=== PATIENT | male | born 1955 | race Caucasian/White ===

== ENCOUNTER → 2017-06-19 09:53 | Outpatient (CLI) | payer BC, SELFPAY ==
[2017-06-19 10:20] LABS: Alanine Aminotransferase 56 U/L (12-78); Albumin Level 3.6 gm/dL (3.4-5.0); Alkaline Phosphatase 86 U/L (46-116); Aspartate Amino Transferase 25 U/L (15-37); Bilirubin,Direct 0.1 mg/dL (0.0-0.2); Bilirubin,Total 0.4 mg/dL (0.2-1.0); Chol/HDL Ratio 2.7 (1-3.5); Cholesterol 117 mg/dL (140-200); HDL Cholesterol 43 mg/dL (27-67); LDL Cholesterol 61 mg/dL (0-130); Total Protein,Serum 7.5 gm/dL (6.4-8.2); Triglycerides 66 mg/dL (30-200); VLDL Cholesterol 13 mg/dL (0-40)
== END ==
PROVIDERS: PCP Family Medicine; Visit Provider Internal Medicine
DX: E78.5 Hyperlipidemia, unspecified (principal)
CPT/HCPCS: 36415; 80061; 80076

== ENCOUNTER → 2018-01-04 13:13 | Outpatient (CLI) | payer BC, SELFPAY ==
[2018-01-04 13:34] LABS: Blood Urea Nitrogen 15 mg/dL (7-18); Creatinine,Serum 1.07 mg/dL (0.70-1.30); Estimated Glomerular Filt Rate 70 ml/min (>60); GFR (African American) 85 ML/MIN (>60)
--- NOTE | 2018-01-04 13:44 | CT_ITS ---
CT chest w con HISTORY: ITS.REASON: LUNG CA ORDERING PHYSICIAN: Troy Valencia MD PATIENT AGE: 62 years COMPARISON: CTA chest March 2017 Technique: IV contrast: 75 cc [id number] utilized IV helical Axial images obtained. Sagittal and coronal reformatted images are also generated and reviewed. All CT scans at the facility use one or more dose reduction, viz: automated exposure control, ma/kV adjustment per patient size (including targeted exams where dose is matched to indication, i.e. head), or iterative reconstruction technique. FINDINGS : There are bilateral large rounded pulmonary masses containing heterogeneous calcification, seen towards the suprahilar region extending towards upper lung wood bilaterally. Left chest.: Left lung mass appears stable vs the Mar 2017 study here at left chest. This large mass measures 6.8 cm height and transverse, unchanged since prior study.. It abuts the posterior pleura in this region but with no rib or chest wall involvement evident. This mass mainly suprahilar but extends into the left sharona with with abnormal soft tissue density throughout the mid & superior portion left sharona. Also note this Mass involves en cases and narrows the pulmonary artery leading into it, axial image 39. The reticular nodular infiltrate surrounding this mass is again noted. Some additional stranding and scarring bleeding into the left upper lobe which appears similar as well. Right chest large mass of the right chest appears similar in size as well. It measures over 7.5 cm height and nearly 8 cm wide. Again with heterogeneous calcifications throughout. Extensive posteriorly towards the posterior pleura RUL. However there are additional reticular nodular infiltrate type pattern surrounding this area with additional volume loss at the right upper lobe with elevation right hemidiaphragm. There appears to be bronchial obstruction RUL bronchus on coronal image 45/axial image 35, ,36 due to this large mass. The mass also encases the upper lobe pulmonary artery and extends down to the right sharona enlarging the right sharona, encasing the only artery at this level.... & No mass narrowing other the airways leading towards the right upper lobe at at the right hilum. The a few scattered peripheral densities are again noted Hyperexpansion towards the lower lobes is again seen bilaterally No pleural effusions. No bony abnormalities. Mediastinum appears unchanged. Generous conglomeration nodes subcarinal region measuring up to 3.5 cm. Appears stable . There is also generous 15 mm x 10 mm node anterior to the left bronchus which appears similar, stable. The heart is normal size no pericardial effusion. Uppermost abdomen no adrenals unremarkable. There is a 5 mm calculus at lower pole right kidney. Nonobstructive noted. Osseous no lesions. T-spine intact-stable,. Ribs intac. No erosive changes. . Aorta appears satisfactory. IMPRESSION: Appearance likely reflects progressive massive fibrosis with large conglomerations.., With progressive volume loss RUL since last year Again see large bilateral upper lobe, perihilar masses bilaterally with heterogeneous calcification.. These prominent large masses appears overall fairly stablesince March 2017; CT chest..... Associated scattered nodules at lungs bilateral appear appears fairly stable as well However, on the right there pronounced interval progressive volume loss atelectasis at RUL. Also progressive reticular interstitial infiltrate surrounding the mass-most evident throughout decreased volume RUL, more so RLL. These large central masses significantly narrow and/or occlude airways to the upper lobes bilaterally. Speculate that this likely contributes to the this significant progressive volume loss at
--- NOTE | 2018-01-04 14:07 | HMH.ITSHM ---
ASPIRINM,VONETOILIN BRILINTA,AMLODIPINE,ATORCASTATIN METOPROLOL
== END ==
PROVIDERS: PCP Family Medicine; Visit Provider Family Medicine
DX: R91.8 Other nonspecific abnormal finding of lung field (principal)
CPT/HCPCS: 36415; 71260; 82565; 84520; Q9967

== ENCOUNTER 2018-05-27 13:59 | Outpatient (RCR) | payer BC, SELFPAY | END 2018-07-31 08:37 | disposition home or self-care (01) | LOC: PT 13:59 | DX: J62.8 Pneumoconiosis due to other dust containing silica (principal) | CPT/HCPCS: G0424 ==

== ENCOUNTER 2018-08-14 12:08 | Inpatient (IN) ==
[2018-08-14 12:28] LABS: Basophils % 0.4 % (0.1-2.0); Eosinophils # 0.2 K/mm3 (0.0-0.4); Eosinophils % 2.3 % (0.1-12.0); Hematocrit 35.5 % (42.0-52.0); Hemoglobin 10.9 g/dL (14.1-18.0); Lymphocytes # 0.7 K/mm3 (0.7-4.5); Lymphocytes % 8.1 % (10-50); Mean Corpuscular HGB Conc 30.6 g/dL (31.8-35.4); Mean Corpuscular Hemoglobin 25.5 pg (27.0-31.2); Mean Corpuscular Volume 83.1 fl (80-94); Mean Platelet Volume 6.7 fl (7.4-10.4); Monocytes # 0.3 K/mm3 (0.1-1.0); Monocytes % 3.7 % (1.7-9.3); Neutrophils # 7.8 K/mm3 (1.8-7.8); Neutrophils % 85.5 % (37.0-80.0); Platelet Count 704 K/mm3 (142-424); Red Blood Count 4.27 M/mm3 (4.60-6.20); Red Cell Distribution Width 14.1 % (11.5-17.5); White Blood Count 9.1 K/mm3 (4.8-10.8)
--- NOTE | 2018-08-14 12:29 | Emergency Department Note ---
ED Disposition Clinical Impression: Pulmonary fibrosis Community acquired pneumonia Qualifiers: Laterality: left Lung location: upper lobe of lung Qualified Code(s): J18.1 - Lobar pneumonia, unspecified organism Disposition: Admitted as Observation Condition on Discharge: Fair Referrals: Provider,Referral, [Referring] - - Critical Care Critical Care Time: No Attestation: On 08/14/18, the high probability of a clinically significant, sudden or life threatening deterioration of the following system(s) required my full and direct attention, intervention and personal management. The time I documented below is in addition to time spent performing reported procedures but includes the following listed in this critical care notation. Medical Decision Making - Zia Inquiry Pt receiving controlled substance: Yes Zia was queried for this patient: No Reason not queried -: Emergent pt cond-no time Risks and benefits of using a controlled substance: were not discussed with pt by me Vital Signs: 08/14/18 12:10 08/14/18 12:20 08/14/18 12:40 Temperature 97.7 F Temperature Source Tympanic Pulse Rate 100 H Pulse Rate [Right Radial] 101 H 100 H Respiratory Rate 26 H 26 H Blood Pressure [Right Arm] 119/79 101/74 L Blood Pressure Mean [Right Arm] 92 83 Blood Pressure Source [Right Arm] Automatic Cuff Automatic Cuff Blood Pressure Position [Right Arm] Sitting Sitting 02 Sat by Pulse Oximetry 100 93 L Oxygen Delivery Method Non-Rebreather Nasal Cannula Oxygen Flow Rate (LPM) 15 2.5 08/14/18 14:10 08/14/18 14:38 Temperature Temperature Source Pulse Rate Pulse Rate [Right Radial] 92 H 91 H Respiratory Rate 20 Blood Pressure [Right Arm] 108/64 L 96/57 L Blood Pressure Mean [Right Arm] 78 70 Blood Pressure Source [Right Arm] Automatic Cuff Automatic Cuff Blood Pressure Position [Right Arm] Supine Sitting 02 Sat by Pulse Oximetry 96 97 Oxygen Delivery Method Nasal Cannula Oxygen Flow Rate (LPM) 2 - Lab Data Lab Results 08/14/18 12:15: WBC 9.1, RBC 4.27 L, Hgb 10.9 L, Hct 35.5 L, MCV 83.1, MCH 25.5 L, MCHC 30.6 L, RDW 14.1, Plt Count 704 H, MPV 6.7 L, Neut % (Auto) 85.5 H, Ly mph % (Auto) 8.1 L, Wise % (Auto) 3.7, Eos % (Auto) 2.3, Baso % (Auto) 0.4, Neut # (Auto) 7.8, Lymph # (Auto) 0.7, Wise # (Auto) 0.3, Eos # (Auto) 0.2, Baso # (Auto) 0.0, Total Counted 100, Neutrophils % (Manual) 92 H, Band Neutrophils % 1.0, Lymphocytes % (Manual) 5 L, Monocytes % (Manual) 2, Platelet Estimate Moderate increase, Hypochromasia 1+ 08/14/18 12:15: Sodium 139, Potassium 4.1, Chloride 101, Carbon Dioxide 25, Anion Gap 17.1 H, BUN 11, Creatinine 0.98, Estimated Creat Clear 58, Estimated GFR 78, Est GFR ( Amer) 94, Glucose 128 H, Calcium 9.7, Troponin I < 0.02 08/14/18 12:15: D-Dimer 765 H* 08/14/18 12:30: Lactate 1.5 Result diagrams: 08/14/18 12:15 08/14/18 12:15 Orders (Tests/Meds): ED MEDICATIONS Generic Name Dose Route Start Last Admin Trade Name Freq PRN Reason Stop Dose Admin Azithromycin 500 mg/ Sodium 250 mls @ 250 mls/hr 08/14/18 12:45 08/14/18 13:30 Chloride IV 08/28/18 12:44 250 mls/hr Q24H MAGDY Administration Protocol Ceftriaxone Sodium 1 gm/ 50 mls @ 100 mls/hr 08/14/18 12:45 08/14/18 12:51 Sodium Chloride IV 08/28/18 12:44 100 mls/hr Q24H MAGDY Administration Protocol Sodium Chloride 10 ml 08/14/18 12:16 Saline Flush 10ml Syringe IV 09/13/18 12:15 NEEDED PRN Maintain IV Site Discontinued Medications Generic Name Dose Route Start Last Admin Trade Name Freq PRN Reason Stop Dose Admin Albuterol/Ipratropium 3 ml 08/14/18 12:16 08/14/18 12:20 Duoneb 3ml Neb IH 08/14/18 12:17 3 ml ONCE ONE Administration Ioversol 70 ml 08/14/18 14:01 08/14/18 14:02 Rad-Optiray 350 100ml Vial IV 08/14/18 14:02 70 ml ONCE ONE Administration Protocol Methylprednisolone Sodium Succinate 125 mg 08/14/18 12:16 08/14/18 12:20 Solu-Medrol 125mg/2ml Vial IV 08/14/18 12:17 125 mg ONCE ONE Administration Morphine Sulfate 4 mg 08/14/18 12:41 08/14/18 12:42 Morphine 4mg/Ml Syringe IV 08/14/18 12:42 4 mg ONCE ONE Administration Ondansetron HCl 4 mg 08/14/18 12:16 08/14/18 12:20 Zofran 4mg/2ml Vial IV 08/14/18 12:17 4 mg ONCE ONE Administration Sodium Chloride 10 ml 08/14/18 14:01 08/14/18 14:02 Rad-Saline Flush 10ml Syringe IV 08/14/18 14:02 10 ml ONCE ONE Administration Sodium Chloride 50 ml 08/14/18 14:01 08/14/18 14:02 Rad-Ns 50ml Vial IV 08/14/18 14:02 50 ml ONCE ONE Administration ORDERS Category Date Time Status Blood Culture Stat Micro 08/14/18 12:30 Received - Radiology Data #1 Image(s): Chest Image Reviewed: Yes I reviewed the patient's radiology image, Yes I have reviewed radiologist's interpretation IMPRESSION: 1. Persistent bilateral upper lobe consolidation consistent with progressive massive fibrosis. 2. Slight increased density in the left upper lobe laterally which could be due to an area of superimposed pneumonia. Dictated By: Carson Olivas MD Signed By: <Electronically signed by Carson Olivas MD in [place]> 08/14/18 1226 - CT Data CT Scan: Chest (CTA) Time Received: 14:[address] Reviewed: Yes: I have viewed the radiologist's interpretation Findings Narrative: IMPRESSION: 1. No evidence of pulmonary embolus. 2. Bilateral upper lobe consolidation as previously described which is worse in the right upper lobe laterally which could be due to superimposed volume loss or progression of progressive massive fibrosis. Cavitation is noted in the right upper lobe unchanged. Severe panlobular emphysematous changes. Scattered nodular densities are noted in both lungs unchanged. Bilateral segmental upper lobe bronchi obstruction noted. 3. Patchy infiltrate in the left upper lobe consistent with pneumonia. 4. There is irregularity/pruning of the segmental pulmonary arteries but no obvious embolus. This did have a similar appearance on previous exam Recommend pulmonary consult if not already in place Dictated By: Carson Olivas MD Signed By: <Electronically signed by Carson Olivas MD in [place]> 08/14/18 8564 - ECG Data Tracing #1 EKG interpreted by Danial Martins MD: Rhythm: sinus tachycardia Rate: 103 [place]: normal Ectopy: none Conduction: normal ST Segment Changes: none T Wave Changes: none Q Waves: none Poor R wave progression no evidence of acute ischemia or injury - Physician Consults Physician Consulted: Annie Time: 15:08 Reason -: Admission Comment/Response: Agrees to admit the patient to the hospital. We discussed the patient's clinical information, including history, exam, laboratory and radiology results and ED course. Per hospital procedure, I will write temporary bridge inpatient orders on the patient. Specific orders requested by the admitting physician: Continue antibiotics, nebulizer treatments, steroids, oxygen Medical Decision Narrative: Prior chest CT: IMPRESSION: Appearance likely reflects progressive massive fibrosis with large conglomerations.., With progressive volume loss RUL since last year Again see large bilateral upper lobe, perihilar masses bilaterally with heterogeneous calcification.. These prominent large masses appears overall fairly stablesince March 2017; CT chest..... Associated scattered nodules at lungs bilateral appear appears fairly stable as well However, on the right there pronounced interval progressive volume loss atelectasis at RUL. Also progressive reticular interstitial infiltrate surrounding the mass-most evident throughout decreased volume RUL, more so RLL. These large central masses significantly narrow and/or occlude airways to the upper lobes bilaterally. Speculate that this likely contributes to the this significant progressive volume loss at RUL in the interval. This this mass encases the vascular structures with significant narrowing many of pulmonary arteries to the upper lobes. Underlying COPD/emphysematous changes as well. Ongoing pulmonary follow-up will be important Dictated By: Vamsi Vasquez Signed By: <Electronically signed by Vamsi Vasquez in [place]> 01/07/18 2759 Prior [facility]: IMPRESSION: 1. Severe disease in the mid LAD which corresponded to the abnormal Myoview 2. Persistent moderate to severe stenosis and a large first obtuse marginal artery 3. Persistent moderate to severe stenosis in the moderate sized posterior ascending artery 4. Preserved ejection fraction 55% 5. Mildly elevated LVEDP 6. Successful stenting of the mid LAD, severe disease reduced to 0% with 1 drug-eluting stent PLAN: 1. Brilinta and aspirin 2. Lipitor in order to achieve an LDL less than 55 3. Risk factor modification 4. Maximize antianginal medications 5. I would like to treat the first obtuse marginal artery medically at this time. It is a large vessel and certainly amenable to stenting however given the Myoview demonstrated anterior ischemia I am confident the mid LAD lesion was the culprit. Should patient continue to have angina pectoris I would recommend free him back and stenting the obtuse marginal artery 6. The diagonal artery should be managed medically as should the PDA at this time <Electronically signed by Baljinder Paez MD in [place]> 03/12/17 1009 [facility]IMIRO / LELAND AT 0916 AT 0958 General Adult HPI - General Chief complaint: Shortness of Breath/Dyspnea Stated complaint: SOA, chest pain Time Seen by Provider: 08/14/18 12:25 Mode of Arrival: EMS Limitations: No Limitations Description of Symptoms (Recalled from ER Triage Doc. by RN): Pt reports a sudden onset of SOA upon waking up this morning. Pt reports hx of COPD and black lung disease. Pt reports "my RIGHT lung is just about completely closed off". Pt reports he sees a operating engineer at [facility] (Dr. Troy Arias), states he saw his last week. Pt c/o pain in chest on inspiration. Pt reports non-productive cough - History of Present Illness HPI narrative: Brought in by ambulance for chest pain and difficulty breathing. States that this morning he developed a pain in his left upper anterior chest below his clavicle which then moved over to the right side and now is in the sternal area and increases with breathing. He thought it might be a heart problem so he took a nitroglycerin, but vomited when he did so. Complains of increased shortness of breath today. Has a history of silicosis. Former smoker. He is not on oxygen at home. He does use a nebulizer at home. He had one nebulizer treatment at home, one during transport, and when here which is only slightly helped. Denies fever. Has a chronic cough which is unchanged. Denies sputum production or hemoptysis. No leg pain or swelling. No fever. Has a prior history of a cardiac stent inserted here. - Related Data Home Medications Medication Instructions Recorded Confirmed albuterol sulfate HFA 90 2 puff INHALATION Q4-6H PRN 06/18/17 08/14/18 mcg/actuation aerosol inhaler amlodipine 5 mg tablet 5 mg PO ONCE 06/18/17 08/14/18 aspirin 81 mg tablet,delayed 81 mg PO ONCE tab 06/18/17 08/14/18 release atorvastatin 40 mg tablet 40 mg PO ONCE 06/18/17 08/14/18 metoprolol succinate ER 25 mg 25 mg PO ONCE tab 06/18/17 08/14/18 tablet,extended release 24 hr nitroglycerin 0.4 mg sublingual 0.4 mg SUBLINGUAL Q5M PRN 06/18/17 08/14/18 tablet ticagrelor 90 mg tablet 90 mg PO BID 06/18/17 08/14/18 Allergies Allergy/AdvReac Type Severity Reaction Status Date / Time No Known Allergies Allergy Verified 03/15/18 17:41 [facility] History - Hepatitis A Screen Drug use history?: No High risk sexual behaviors?: No History of sexually transmitted infection?: No Currently employed?: No Childcare worker?: No Do you have indoor plumbing?: Yes Do you have electricity?: Yes Attestation statement:: This patient has been screened for Hepatitis A risk factors. I have reviewed the patient's past medical history: Yes Medical History: Reports:: Chronic Obstructive Pulmonary Disease (COPD), Coronary Artery Disease, Hyperlipidemia, Hypertension, Kidney Stones, Palp itations Denies:: Diabetes Mellitus Type 1, Diabetes Mellitus Type 2 Other Medical History: Reports: Arthritis Other Surgeries: Yes: Coronary Stent, Other - Social History Smoking Status: Former smoker Alcohol Intake: never Alcohol Intake Frequency:: other Occupational Status: employed Housing: house Household Members: family - Psychiatric History Expresses thoughts of harming self/others: None Suicide Plan Description: No Plan Family Hx:: Coronary Artery Disease ROS Obtained: Yes All systems reviewed & no additional complaints - Constitutional Constitutional: Denies fever(s) - Cardiovascular Cardiovascular: Reports chest pain, Denies diaphoresis - Respiratory Respiratory: Yes cough (Chronic), Yes non-productive cough, Yes dyspnea, No coughing up blood, Yes pain on inspiration - Gastrointestinal Gastrointestingal: Reports: vomiting. Denies: abdominal pain Physical Exam - General General appearance: alert, in distress - Head Head exam: atraumatic, normocephalic - Eye Eye exam: Present: normal appearance, PERRL, EOMI - ENT ENT exam: Present: mucous membranes moist - Neck Neck exam: Present: normal inspection, trachea midline - Chest Chest inspection: Present: normal inspection, symmetric chest wall rise - Respiratory Respiratory exam: Present: normal lung sounds bilaterally, respiratory distress - Cardiovascular Cardiovascular exam: Present: normal rhythm, tachycardia, normal heart sounds - Abdominal Exam Abdominal exam: Present: soft. Absent: distention, tenderness - Extremities Exam Extremities exam: Present: normal inspection, full ROM, other (Normal radial and pedal pulses). Absent: tenderness, pedal edema, calf tenderness - Neurological Exam Neurological exam: Present: alert, oriented X3 - Psychiatric Psychiatric exam: Present: anxious
[2018-08-14 12:44] LABS: Anion Gap 17.1 mEq/L (5-15); Blood Urea Nitrogen 11 mg/dL (7-18); Calcium 9.7 mg/dL (8.5-10.1); Carbon Dioxide 25 mmol/L (21.0-32.0); Chloride 101 mmol/L (98-107); Glucose 128 mg/dL (74-106); Potassium 4.1 mmoL/L (3.5-5.1); Sodium 139 mmol/L (136-145)
[2018-08-14 13:06] LABS: Lymphocytes % 5 % (10-50); Monocytes % 2 % (2-9); Neutrophils % 92 % (42-76); Total Cells Counted 100
[2018-08-14 13:07] LABS: Hypochromasia 1+
--- NOTE | 2018-08-14 15:59 | History & Physical Report ---
*Admission Date: 08/14/18 <Charo Marino 08/14/18 16:07> *Chief complaint: SOA, wheezing, CP <Charo Marino 08/14/18 16:07> *History of present illness: Mr. 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 He states at approximately 6am he began having pain in the left side of his chest that radiated to his shoulder. The pain then moved across his entire chest and settled in the center. He began having shortness of breath as well and took a breathing treatment. He said this slightly helped his shortness of breath but not his chest pain. He then took a nitroglycerin and this made him vomit and caused him to become diaphoretic. It was at this time he called 911 and was transported to the emergency room. He was given another breathing treatment in route to the ER. Upon evaluation in the emergency room his d-dimer was found to be elevated, therefore a CTA was done to rule out a PE. CTA showed no PE but did reveal bilateral upper lobe pneumonia. The patient was admitted for further evaluation and treatment. <Charo Marino 08/14/18 16:07> [facility] History I have reviewed the patient's past medical history: Yes <Charo Marino 08/14/18 16:07> Medical History: Reports:: Chronic Obstructive Pulmonary Disease (COPD), Coronary Artery Disease, Hyperlipidemia, Hypertension, Kidney Stones, Palpitations Denies:: Diabetes Mellitus Type 1, Diabetes Mellitus Type 2 <Charo Marino 08/14/18 16:07> *Have you ever received a pneumonia vaccine?: No <Charo Marino 08/14/18 17:08> *Have you received a flu vaccine this season?: No <Charo Marino 08/14/18 17:08> Other Medical History: Reports: Arthritis, Other (Pulmonary fibrosis, Nodular Silicosis) <Charo Marino 08/14/18 16:07> Other Surgeries: Yes: Coronary Stent, Other (Bronchoscopy) <Charo Marino 08/14/18 16:07> - *Social History Smoking Status: Former smoker <Charo Marino 08/14/18 16:07> Alcohol Intake: never <MagedkathieCharo 08/14/18 16:07> Alcohol Intake Frequency:: other <NedCharo - 08/14/18 16:07> *Occupational Status:: employed <Charo Marino 08/14/18 16:07> Housing: house <MagedkathieCharo 08/14/18 16:07> Household Members: family <NedCharo 08/14/18 16:07> *Travel in the last 8 weeks: None <NedCharo 08/14/18 16:07> - Psychiatric History Expresses thoughts of harming self/others: None <Charo Marino 08/14/18 16:07> Suicide Plan Description: No Plan <NedCharo 08/14/18 16:07> Family Hx:: Coronary Artery Disease, Diabetes, Heart Attack, Hyperlipidemia <NedCharo 08/14/18 16:07> Review of Systems - Constitutional Reports fatigue, Reports weakness <Toby Marinoa 08/14/18 16:07> - Eyes Denies blurry vision, Denies double vision <NedCharo 08/14/18 16:07> - ENT Reports nasal congestion, [facility] sore throat [facility]> - *Cardiovascular Reports chest pain, Reports shortness of breath [facility]:07> - *Respiratory Reports cough, Reports shortness of breath <NedCharo 08/14/18 16:07> - *Gastrointestinal Reports nausea, Reports vomiting, Denies abdominal pain, Denies loose stools <[facility] 08/14/18 16:07> - *Genitourinary Reports blood in urine, Denies difficulty urinating <[facility] 08/14/18 16:07> - *Musculoskeletal Denies joint pain, Denies body aches [facility]/14[facility]18 16:07> - *Neurologic Reports dizziness, Reports weakness, Denies headache(s) <Toby Marinoa 08/14/18 16:07> Meds Home Medications Medication Instructions Recorded Confirmed Type albuterol sulfate HFA 90 2 puff INHALATION Q4-6H PRN 06/18/17 08/14/18 History mcg/actuation aerosol inhaler amlodipine 5 mg tablet 5 mg PO DAILY 06/18/17 08/14/18 History aspirin 81 mg tablet,delayed 81 mg PO DAILY tab 06/18/17 08/14/18 History release atorvastatin 40 mg tablet 40 mg PO HS 06/18/17 08/14/18 History metoprolol succinate ER 25 mg 25 mg PO DAILY tab 06/18/17 08/14/18 History tablet,extended release 24 hr nitroglycerin 0.4 mg sublingual 0.4 mg SUBLINGUAL Q5M PRN 06/18/17 08/14/18 History tablet ticagrelor 90 mg tablet 90 mg PO BID 06/18/17 08/14/18 History <Charo Marino - 08/14/18 16:07> Allergies Allergy/AdvReac Type Severity Reaction Status Date / Time No Known Allergies Allergy Verified 03/15/18 17:41 <Charo Marino - 08/14/18 16:07> Exam Vital signs and Labs for Last 24 Hours: Temp Pulse Resp BP Pulse Ox 98.9 F 96 H 21 100/79 L 96 08/14/18 16:06 08/14/18 16:06 08/14/18 16:06 08/14/18 16:06 08/14/18 16:20 Laboratory Results - last 24 hr 08/14/18 12:15: WBC 9.1, RBC 4.27 L, Hgb 10.9 L, Hct 35.5 L, MCV 83.1, MCH 25.5 L, MCHC 30.6 L, RDW 14.1, Plt Count 704 H, MPV 6.7 L, Neut % (Auto) 85.5 H, Lymph % (Auto) 8.1 L, [place] % (Auto) 3.7, Eos % (Auto) 2.3, Baso % (Auto) 0.4, Neut # (Auto) 7.8, Lymph # (Auto) 0.7, [place] # (Auto) 0.3, Eos # (Auto) 0.2, Baso # (Auto) 0.0, Total Counted 100, Neutrophils % (Manual) 92 H, Band Neutrophils % 1.0, Lymphocytes % (Manual) 5 L, Monocytes % (Manual) 2, Platelet Estimate Moderate increase, Hypochromasia 1+ 08/14/18 12:15: Sodium 139, Potassium 4.1, Chloride 101, Carbon Dioxide 25, Anion Gap 17.1 H, BUN 11, Creatinine 0.98, Estimated Creat Clear 58, Estimated GFR 78, Est GFR ( Amer) 94, Glucose 128 H, Calcium 9.7, Troponin I < 0.02 08/14/18 12:15: D-Dimer 765 H* 08/14/18 12:30: Lactate 1.5 <Merrill,Troy - 08/14/18 16:52> Temp Pulse Resp BP Pulse Ox 207.3 F H 98 H 18 131/91 H 96 08/14/18 15:39 08/14/18 15:39 08/14/18 15:39 08/14/18 15:39 08/14/18 15:16 Laboratory Results - last 24 hr 08/14/18 12:15: WBC 9.1, RBC 4.27 L, Hgb 10.9 L, Hct 35.5 L, MCV 83.1, MCH 25.5 L, MCHC 30.6 L, RDW 14.1, Plt Count 704 H, MPV 6.7 L, Neut % (Auto) 85.5 H, Lymph % (Auto) 8.1 L, [place] % (Auto) 3.7, Eos % (Auto) 2.3, Baso % (Auto) 0.4, Neut # (Auto) 7.8, Lymph # (Auto) 0.7, [place] # (Auto) 0.3, Eos # (Auto) 0.2, Baso # (Auto) 0.0, Total Counted 100, Neutrophils % (Manual) 92 H, Band Neutrophils % 1.0, Lymphocytes % (Manual) 5 L, Monocytes % (Manual) 2, Platelet Estimate Moderate increase, Hypochromasia 1+ 08/14/18 12:15: Sodium 139, Potassium 4.1, Chloride 101, Carbon Dioxide 25, Anion Gap 17.1 H, BUN 11, Creatinine 0.98, Estimated Creat Clear 58, Estimated GFR 78, Est GFR ( Amer) 94, Glucose 128 H, Calcium 9.7, Troponin I < 0.02 08/14/18 12:15: D-Dimer 765 H* 08/14/18 12:30: Lactate 1.5 <Crowdy,Charo 08/14/18 16:07> I & O for Last 24 hours: Intake & Output 08/11/18 08/12/18 08/13/18 08/14/18 23:59 23:59 23:59 23:59 Weight 118 lb 2 oz <Troy Valencia - 08/14/18 16:52> Intake & Output 08/12/18 08/13/18 08/14/18 08/15/18 11:59 11:59 11:59 11:59 Weight 118 lb <Charo Marino 08/14/18 16:07> - Constitutional no acute distress <Charo Marino 08/14/18 16:07> - *Routine HEENT Exam Head: Present: normocephalic <[facility] 08/14/[facility] 16:07> Eye: Present: EOMI, PERRL [facility] 08/14/[facility] 16:07> ENT: Present: mucous membranes dry <Charo Marino 08/14/18 16:07> - *Routine Neck Exam Present: supple. Absent: lymphadenopathy <[facility] 08/14/18 16:07> - *Routine Respiratory Exam Present: decreased breath sounds, CTA bilaterally <[facility] 08/14/18 16:07> - *Routine Cardiovascular Exam Present: RRR <[facility] 08/14/18 16:07> - *Routine Abdominal Exam Present: soft, normoactive bowel sounds. Absent: tenderness <MagedkathieCharo - 08/14/18 16:07> - *Routine Extremities Exam Absent: cyanosis, clubbing, edema <Toby [facility] 08/14/18 16:07> - *Routine Skin Exam Present: warm. Absent: rash <[facility] 08/14/18 16:07> - *Routine Neurological Exam Present: alert, oriented X3 <[facility] 08/14/18 16:07> H&P: Result - Impressions CXR 1. Persistent bilateral upper lobe consolidation consistent with progressive massive fibrosis. 2. Slight increased density in the left upper lobe laterally which could be due to an area of superimposed pneumonia. CTA 1. No evidence of pulmonary embolus. 2. Bilateral upper lobe consolidation as previously described which is worse in the right upper lobe laterally which could be due to superimposed volume loss or progression of progressive massive fibrosis. Cavitation is noted in the right upper lobe unchanged. Severe panlobular emphysematous changes. Scattered nodular densities are noted in both lungs unchanged. Bilateral segmental upper lobe bronchi obstruction noted. 3. Patchy infiltrate in the left upper lobe consistent with pneumonia. 4. There is irregularity/pruning of the segmental pulmonary arteries but no obvious embolus. This did have a similar appearance on previous exam Recommend pulmonary consult if not already in place <Charo Marino - 08/14/18 16:07> Assessment and Plan (1) Community acquired pneumonia Current visit: Yes Status: Acute Qualifiers: Laterality: left Lung location: upper lobe of lung Qualified Code(s): J18.1 - Lobar pneumonia, unspecified organism Category: Medical Code(s): J18.9 - Pneumonia, unspecified organism (2) Pulmonary fibrosis Current visit: Yes Status: Chronic Category: Medical Code(s): J84.10 - Pulmonary fibrosis, unspecified (3) Anemia, unspecified Current visit: No Status: Chronic Qualifiers: Anemia type: unspecified type Qualified Code(s): D64.9 - Anemia, unspecified Category: Medical Code(s): D64.9 - Anemia, unspecified (4) Chronic obstructive lung disease Current visit: No Status: Chronic Qualifiers: COPD type: unspecified COPD Qualified Code(s): J44.9 - Chronic obstructive pulmonary disease, unspecified Category: Medical Code(s): J44.9 - Chronic obstructive pulmonary disease, unspecified (5) Coronary arteriosclerosis Current visit: No Status: Chronic Category: Medical Code(s): I25.10 - Atherosclerotic heart disease of [place] coronary artery without angina pectoris (6) Ex-smoker Current visit: No Status: Chronic Category: Social Hx Code(s): Z87.891 - Personal history of nicotine dependence (7) Stented coronary artery Current visit: No Status: Chronic Category: Surgical Code(s): Z95.5 - Presence of coronary angioplasty implant and graft (8) Nodular silicosis Current visit: Yes Status: Chronic Category: Medical Code(s): J62.8 - Pneumoconiosis due to other dust containing silica <Troy Valencia - 08/14/18 16:52> (1) Community acquired pneumonia Current visit: Yes Status: Acute Qualifiers: Laterality: left Lung location: upper lobe of lung Qualified Code(s): J18.1 - Lobar pneumonia, unspecified organism Category: Medical Code(s): J18.9 - Pneumonia, unspecified organism (2) Pulmonary fibrosis Current visit: Yes Status: Chronic Category: Medical Code(s): J84.10 - Pulmonary fibrosis, unspecified (3) Anemia, unspecified Current visit: No Status: Chronic Qualifiers: Anemia type: unspecified type Qualified Code(s): D64.9 - Anemia, unspecified Category: Medical Code(s): D64.9 - Anemia, unspecified (4) Chronic obstructive lung disease Current visit: No Status: Chronic Qualifiers: COPD type: unspecified COPD Qualified Code(s): J44.9 - Chronic obstructive pulmonary disease, unspecified Category: Medical Code(s): J44.9 - Chronic obstructive pulmonary disease, unspecified (5) Coronary arteriosclerosis Current visit: No Status: Chronic Category: Medical Code(s): I25.10 - Atherosclerotic heart disease of [place] coronary artery without angina pectoris (6) Ex-smoker Current visit: No Status: Chronic Category: Social Hx Code(s): Z87.891 - Personal history of nicotine dependence (7) Stented coronary artery Current visit: No Status: Chronic Category: Surgical Code(s): Z95.5 - Presence of coronary angioplasty implant and graft (8) Nodular silicosis Current visit: Yes Status: Chronic Category: Medical Code(s): J62.8 - Pneumoconiosis due to other dust containing silica <Charo Marino - 08/14/18 17:08> - Assessment and plan all Dx Assessment and Plan for all problems:: The patient has been started on antibiotics, nebs, steroids, and oxygen as well as some of his home medications. Will await sputum cx results. <Charo Marino - 08/14/18 17:08> Saw patient, agree with above note. <Troy Valencia - 08/14/18 16:53>
--- NOTE | 2018-08-15 07:57 | Pharmacy Consult Notes ---
[facility] Pharmacy VTE Monitoring - Patient Demographics Admission date: 08/14/18 Report Date: 08/15/18 Time: 07:57 Allergies/Adverse Reactions: Patient Allergies No Known Allergies Allergy (Verified 03/15/18 17:41) Height: 1.75 m Weight: 53.099 kg Patient Problems: Current Active Problems Community acquired pneumonia (Acute) Pulmonary fibrosis (Chronic) Nodular silicosis (Chronic) - VTE Risk Labs: VTE Related Lab Results Hgb 10.9 g/dL (14.1-18.0) L 08/14/18 12:15 Hct 35.5 % (42.0-52.0) L 08/14/18 12:15 Plt Count 704 K/mm3 (142-424) H 08/14/18 12:15 BUN 11 mg/dL (7-18) 08/14/18 12:15 Creatinine 0.98 mg/dL (0.70-1.30) 08/14/18 12:15 Estimated Creat Clear 58 mL/min (50-200) 08/14/18 12:15 Clinical Trial Participant: No - Prophylaxis VTE Prophylaxis Ordered?: Yes Types of VTE Prophylaxis: TEDS Knee High
--- NOTE | 2018-08-15 08:32 | Progress Note ---
<Charo Marino - Last Filed: 08/15/18 08:29> Internal Medicine - PN: Subj *Date: 08/15/18 *Time: 08:30 Interval history: Patient states he is feeling a little bit better this morning. He states his chest pain resolved throughout the night but has returned slightly on the left side. He still has a cough and is short of breath. He states he did sleep fairly well throughout the night and ate some of his breakfast this morning. Exam Vital signs and Labs for Last 24 Hours: Temp Pulse Resp BP Pulse Ox 98.1 F 80 16 90/58 L 98 08/15/18 04:00 08/15/18 05:52 08/15/18 04:00 08/15/18 04:00 08/15/18 05:52 Laboratory Results - last 24 hr 08/14/18 12:15: WBC 9.1, RBC 4.27 L, Hgb 10.9 L, Hct 35.5 L, MCV 83.1, MCH 25.5 L, MCHC 30.6 L, RDW 14.1, Plt Count 704 H, MPV 6.7 L, Neut % (Auto) 85.5 H, Lymph % (Auto) 8.1 L, [place] % (Auto) 3.7, Eos % (Auto) 2.3, Baso % (Auto) 0.4, Neut # (Auto) 7.8, Lymph # (Auto) 0.7, [place] # (Auto) 0.3, Eos # (Auto) 0.2, Baso # (Auto) 0.0, Total Counted 100, Neutrophils % (Manual) 92 H, Band Neutrophils % 1.0, Lymphocytes % (Manual) 5 L, Monocytes % (Manual) 2, Platelet Estimate Moderate increase, Hypochromasia 1+ 08/14/18 12:15: Sodium 139, Potassium 4.1, Chloride 101, Carbon Dioxide 25, Anion Gap 17.1 H, BUN 11, Creatinine 0.98, Estimated Creat Clear 58, Estimated GFR 78, Est GFR ( Amer) 94, Glucose 128 H, Calcium 9.7, Troponin I < 0.02 08/14/18 12:15: D-Dimer 765 H* 08/14/18 12:30: Lactate 1.5 I & O for Last 24 hours: Intake & Output 0408/13/18 08/14/18 08/15/18 11:59 11:59 11:59 11:59 Intake Total 360 / 360 Balance 360 / 360 Weight 117 lb 1 oz - Constitutional no acute distress - *Routine Respiratory Exam Present: wheezes (on the left side) - *Routine Cardiovascular Exam Present: RRR - *Routine Abdominal Exam Present: soft, normoactive bowel sounds. Absent: tenderness - *Routine Extremities Exam Absent: cyanosis, clubbing, edema Assessment and Plan (1) Community acquired pneumonia Current visit: Yes Status: Acute Qualifiers: Laterality: left Lung location: upper lobe of lung Qualified Code(s): J18.1 - Lobar pneumonia, unspecified organism Category: Medical Code(s): J18.9 - Pneumonia, unspecified organism (2) Pulmonary fibrosis Current visit: Yes Status: Chronic Category: Medical Code(s): J84.10 - Pulmonary fibrosis, unspecified (3) Anemia, unspecified Current visit: No Status: Chronic Qualifiers: Anemia type: unspecified type Qualified Code(s): D64.9 - Anemia, unspecified Category: Medical Code(s): D64.9 - Anemia, unspecified (4) Chronic obstructive lung disease Current visit: No Status: Chronic Qualifiers: COPD type: unspecified COPD Qualified Code(s): J44.9 - Chronic obstructive pulmonary disease, unspecified Category: Medical Code(s): J44.9 - Chronic obstructive pulmonary disease, unspecified (5) Coronary arteriosclerosis Current visit: No Status: Chronic Category: Medical Code(s): I25.10 - Atherosclerotic heart disease of [place] coronary artery without angina pectoris (6) Ex-smoker Current visit: No Status: Chronic Category: Social Hx Code(s): Z87.891 - Personal history of nicotine dependence (7) Stented coronary artery Current visit: No Status: Chronic Category: Surgical Code(s): Z95.5 - Presence of coronary angioplasty implant and graft (8) Nodular silicosis Current visit: Yes Status: Chronic Category: Medical Code(s): J62.8 - Pneumoconiosis due to other dust containing silica - Assessment and plan all Dx Assessment and Plan for all problems:: Will await sputum culture and continue antibiotics. <Troy Valencia - Last Filed: 08/15/18 08:32> Exam Vital signs and Labs for Last 24 Hours: Temp Pulse Resp BP Pulse Ox 98.1 F 80 16 90/58 L 98 08/15/18 04:00 08/15/18 05:52 08/15/18 04:00 08/15/18 04:00 08/15/18 05:52 Laboratory Results - last 24 hr 08/14/18 12:15: WBC 9.1, RBC 4.27 L, Hgb 10.9 L, Hct 35.5 L, MCV 83.1, MCH 25.5 L, MCHC 30.6 L, RDW 14.1, Plt Count 704 H, MPV 6.7 L, Neut % (Auto) 85.5 H, Lymph % (Auto) 8.1 L, [place] % (Auto) 3.7, Eos % (Auto) 2.3, Baso % (Auto) 0.4, Neut # (Auto) 7.8, Lymph # (Auto) 0.7, [place] # (Auto) 0.3, Eos # (Auto) 0.2, Baso # (Auto) 0.0, Total Counted 100, Neutrophils % (Manual) 92 H, Band Neutrophils % 1.0, Lymphocytes % (Manual) 5 L, Monocytes % (Manual) 2, Platelet Estimate Moderate increase, Hypochromasia 1+ 08/14/18 12:15: Sodium 139, Potassium 4.1, Chloride 101, Carbon Dioxide 25, Anion Gap 17.1 H, BUN 11, Creatinine 0.98, Estimated Creat Clear 58, Estimated GFR 78, Est GFR ( Amer) 94, Glucose 128 H, Calcium 9.7, Troponin I < 0.02 08/14/18 12:15: D-Dimer 765 H* 08/14/18 12:30: Lactate 1.5 I & O for Last 24 hours: Intake & Output 08/12/18 08/13/18 08/14/18 08/15/18 23:59 23:59 23:59 23:59 Intake Total 360 / 360 Balance 360 / 360 Weight 118 lb 2 oz 117 lb 1 oz Assessment and Plan (1) Community acquired pneumonia Current visit: Yes Status: Acute Qualifiers: Laterality: left Lung location: upper lobe of lung Qualified Code(s): J18.1 - Lobar pneumonia, unspecified organism Category: Medical Code(s): J18.9 - Pneumonia, unspecified organism (2) Pulmonary fibrosis Current visit: Yes Status: Chronic Category: Medical Code(s): J84.10 - Pulmonary fibrosis, unspecified (3) Anemia, unspecified Current visit: No Status: Chronic Qualifiers: Anemia type: unspecified type Qualified Code(s): D64.9 - Anemia, unspecified Category: Medical Code(s): D64.9 - Anemia, unspecified (4) Chronic obstructive lung disease Current visit: No Status: Chronic Qualifiers: COPD type: unspecified COPD Qualified Code(s): J44.9 - Chronic obstructive pulmonary disease, unspecified Category: Medical Code(s): J44.9 - Chronic obstructive pulmonary disease, unspecified (5) Coronary arteriosclerosis Current visit: No Status: Chronic Category: Medical Code(s): I25.10 - Atherosclerotic heart disease of [place] coronary artery without angina pectoris (6) Ex-smoker Current visit: No Status: Chronic Category: Social Hx Code(s): Z87.891 - Personal history of nicotine dependence (7) Stented coronary artery Current visit: No Status: Chronic Category: Surgical Code(s): Z95.5 - Presence of coronary angioplasty implant and graft (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
[2018-08-16 07:31] LABS: Hematocrit 30.5 % (42.0-52.0); Hemoglobin 9.6 g/dL (14.1-18.0); Lymphocytes # 0.3 K/mm3 (0.7-4.5); Lymphocytes % 3.1 % (10-50); Mean Corpuscular HGB Conc 31.4 g/dL (31.8-35.4); Mean Corpuscular Hemoglobin 25.6 pg (27.0-31.2); Mean Corpuscular Volume 81.5 fl (80-94); Mean Platelet Volume 6.9 fl (7.4-10.4); Monocytes # 0.3 K/mm3 (0.1-1.0); Monocytes % 2.7 % (1.7-9.3); Neutrophils # 10.7 K/mm3 (1.8-7.8); Neutrophils % 94.2 % (37.0-80.0); Platelet Count 563 K/mm3 (142-424); Red Blood Count 3.74 M/mm3 (4.60-6.20); Red Cell Distribution Width 14.1 % (11.5-17.5); White Blood Count 11.4 K/mm3 (4.8-10.8)
[2018-08-16 07:37] LABS: Anion Gap 14.1 mEq/L (5-15); Potassium 4.1 mmoL/L (3.5-5.1)
--- NOTE | 2018-08-16 08:17 | Progress Note ---
<Charo Marino - Last Filed: 08/16/18 08:15> Internal Medicine - PN: Subj *Date: 08/16/18 *Time: 08:15 Interval history: Patient states he is feeling much better this morning. He states his chest pain has resolved and he seems to be able to take deeper breaths this morning. He has been up moving around his room. He slept well and ate a good breakfast. Exam Vital signs and Labs for Last 24 Hours: Temp Pulse Resp BP Pulse Ox 97.7 F 95 H 16 101/69 L 97 08/16/18 04:00 08/16/18 06:10 08/16/18 04:00 08/16/18 04:00 08/16/18 06:10 Laboratory Results - last 24 hr 08/16/18 07:00: WBC 11.4 H D, RBC 3.74 L, Hgb 9.6 L, Hct 30.5 L, MCV 81.5, MCH 25.6 L, MCHC 31.4 L, RDW 14.1, Plt Count 563 H, MPV 6.9 L, Neut % (Auto) 94.2 H, Lymph % (Auto) 3.1 L, [place] % (Auto) 2.7, Eos % (Auto) 0.0 L, Baso % (Auto) 0.0 L , Neut # (Auto) 10.7 H, Lymph # (Auto) 0.3 L, [place] # (Auto) 0.3, Eos # (Auto) 0.0, Baso # (Auto) 0.0 08/16/18 07:00: Sodium 139, Potassium 4.1, Chloride 102, Carbon Dioxide 27, Anion Gap 14.1, BUN 20 H D, Creatinine 0.79, Estimated Creat Clear 57, Estimated GFR 99, Est GFR ( Amer) 120 D, Glucose 143 H, Calcium 9.0 I & O for Last 24 hours: Intake & Output 08/13/18 08/14/18 08/15/18 08/16/18 11:59 11:59 11:59 11:59 Intake Total 600 / 600 900 / 900 Balance 600 / 600 900 / 900 Weight 117 lb 1 oz 116 lb 2 oz Microbiology Reports for the Last 24 Hours: Microbiology 08/15/18 09:05 Sputum - Expectorated Sputum Gram Stain - Final 08/15/18 09:05 Sputum - Expectorated Sputum Sputum Culture - Preliminary - Constitutional no acute distress - *Routine Respiratory Exam Present: CTA bilaterally - *Routine Cardiovascular Exam Present: RRR - *Routine Abdominal Exam Present: soft, normoactive bowel sounds. Absent: tenderness - *Routine Extremities Exam Absent: cyanosis, clubbing, edema Assessment and Plan (1) Community acquired pneumonia Current visit: Yes Status: Acute Qualifiers: Laterality: left Lung location: upper lobe of lung Qualified Code(s): J18.1 - Lobar pneumonia, unspecified organism Category: Medical Code(s): J18.9 - Pneumonia, unspecified organism (2) Pulmonary fibrosis Current visit: Yes Status: Chronic Category: Medical Code(s): J84.10 - Pulmonary fibrosis, unspecified (3) Anemia, unspecified Current visit: No Status: Chronic Qualifiers: Anemia type: unspecified type Qualified Code(s): D64.9 - Anemia, unspecified Category: Medical Code(s): D64.9 - Anemia, unspecified (4) Chronic obstructive lung disease Current visit: No Status: Chronic Qualifiers: COPD type: unspecified COPD Qualified Code(s): J44.9 - Chronic obstructive pulmonary disease, unspecified Category: Medical Code(s): J44.9 - Chronic obstructive pulmonary disease, unspecified (5) Coronary arteriosclerosis Current visit: No Status: Chronic Category: Medical Code(s): I25.10 - Atherosclerotic heart disease of [place] coronary artery without angina pectoris (6) Ex-smoker Current visit: No Status: Chronic Category: Social Hx Code(s): Z87.891 - Personal history of nicotine dependence (7) Stented coronary artery Current visit: No Status: Chronic Category: Surgical Code(s): Z95.5 - Presence of coronary angioplasty implant and graft (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 Still awaiting sputum culture results. Possible discharge home today. <Troy Valencia - Last Filed: 08/16/18 08:58> Exam Vital signs and Labs for Last 24 Hours: Temp Pulse Resp BP Pulse Ox 97.6 F 91 H 20 123/61 97 08/16/18 08:00 08/16/18 08:00 08/16/18 08:00 08/16/18 08:00 08/16/18 08:00 Laboratory Results - last 24 hr 08/16/18 07:00: WBC 11.4 H D, RBC 3.74 L, Hgb 9.6 L, Hct 30.5 L, MCV 81.5, MCH 25.6 L, MCHC 31.4 L, RDW 14.1, Plt Count 563 H, MPV 6.9 L, Neut % (Auto) 94.2 H, Lymph % (Auto) 3.1 L, [place] % (Auto) 2.7, Eos % (Auto) 0.0 L, Baso % (Auto) 0.0 L , Neut # (Auto) 10.7 H, Lymph # (Auto) 0.3 L, [place] # (Auto) 0.3, Eos # (Auto) 0.0, Baso # (Auto) 0.0 08/16/18 07:00: Sodium 139, Potassium 4.1, Chloride 102, Carbon Dioxide 27, Anion Gap 14.1, BUN 20 H D, Creatinine 0.79, Estimated Creat Clear 57, Estimated GFR 99, Est GFR ( Amer) 120 D, Glucose 143 H, Calcium 9.0 I & O for Last 24 hours: Intake & Output 08/13/18 08/14/18 08/15/18 08/16/18 23:59 23:59 23:59 23:59 Intake Total 360 / 360 1140 / 1140 480 / 480 Balance 360 / 360 1140 / 1140 480 / 480 Weight 118 lb 2 oz 117 lb 1 oz 116 lb 2 oz Microbiology Reports for the Last 24 Hours: Microbiology 08/15/18 09:05 Sputum - Expectorated Sputum Gram Stain - Final 08/15/18 09:05 Sputum - Expectorated Sputum Sputum Culture - Preliminary Assessment and Plan (1) Community acquired pneumonia Current visit: Yes Status: Acute Qualifiers: Laterality: left Lung location: upper lobe of lung Qualified Code(s): J18.1 - Lobar pneumonia, unspecified organism Category: Medical Code(s): J18.9 - Pneumonia, unspecified organism (2) Pulmonary fibrosis Current visit: Yes Status: Chronic Category: Medical Code(s): J84.10 - Pulmonary fibrosis, unspecified (3) Anemia, unspecified Current visit: No Status: Chronic Qualifiers: Anemia type: unspecified type Qualified Code(s): D64.9 - Anemia, unspecified Category: Medical Code(s): D64.9 - Anemia, unspecified (4) Chronic obstructive lung disease Current visit: No Status: Chronic Qualifiers: COPD type: unspecified COPD Qualified Code(s): J44.9 - Chronic obstructive pulmonary disease, unspecified Category: Medical Code(s): J44.9 - Chronic obstructive pulmonary disease, unspecified (5) Coronary arteriosclerosis Current visit: No Status: Chronic Category: Medical Code(s): I25.10 - Atherosclerotic heart disease of [place] coronary artery without angina pectoris (6) Ex-smoker Current visit: No Status: Chronic Category: Social Hx Code(s): Z87.891 - Personal history of nicotine dependence (7) Stented coronary artery Current visit: No Status: Chronic Category: Surgical Code(s): Z95.5 - Presence of coronary angioplasty implant and graft (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
[2018-08-16 09:02] LABS: Lymphocytes % 3 % (10-50); Monocytes % 1 % (2-9); Neutrophils % 93 % (42-76); Total Cells Counted 100
--- NOTE | 2018-08-16 15:41 | Discharge Summary ---
General - General Admission date:: 08/14/18 Discharge date: 08/16/18 HPI HPI: Mr. May is a 63-year-old male with a history of COPD, pulmonary fibrosis, nodular silicosis diagnosed at [facility] in May 2018, and coronary artery disease. He states at approximately 6am he began having pain in the left side of his chest that radiated to his shoulder. The pain then moved across his entire chest and settled in the center. He began having shortness of breath as well and took a breathing treatment. He said this slightly helped his shortness of breath but not his chest pain. He then took a nitroglycerin and this made him vomit and caused him to become diaphoretic. It was at this time he called 911 and was transported to the emergency room. He was given another breathing treatment in route to the ER. Upon evaluation in the emergency room his d-dimer was found to be elevated, therefore a CTA was done to rule out a PE. CTA showed no PE but did reveal bilateral upper lobe pneumonia. The patient was admitted for further evaluation and treatment. Hospital Course Hospital Course: The patient's chest x-ray showed bilateral upper lobe consolidation consistent with progressive massive fibrosis. There was an increased density in the left upper lobe due to super imposed pneumonia. The patient's d-dimer was elevated, therefore he had a CTA which showed no evidence of PE. It did show the bilateral upper lobe consolidation, severe gore lobar emphysematous changes, and a patchy infiltrate in the left upper lobe consistent with pneumonia. The patient was admitted and started on IV antibiotics, nebs, steroids, and oxygen as well as some of his home medications. His chest pain did resolve throughout the course of his stay. His shortness of breath improved as did his cough. He was able to rest well and eat well. His blood culture showed no growth in his sputum was pending. He was able to be weaned off of his oxygen and was stable to be discharged home on continued antibiotics (zithromax and omnicef). He will follow-up in the office of [facility] with Dr. Valencia. Objective Vital signs: Temp Pulse Resp BP Pulse Ox 97.6 F 98 H 20 123/61 97 08/16/18 08:00 08/16/18 09:51 08/16/18 08:00 08/16/18 08:00 08/16/18 08:00 Narrative: - Constitutional no acute distress - *Routine HEENT Exam Head: Present: normocephalic Eye: Present: EOMI, PERRL ENT: Present: mucous membranes dry - *Routine Neck Exam Present: supple. Absent: lymphadenopathy - *Routine Respiratory Exam Present: decreased breath sounds, CTA bilaterally - *Routine Cardiovascular Exam Present: RRR - *Routine Abdominal Exam Present: soft, normoactive bowel sounds. Absent: tenderness - *Routine Extremities Exam Absent: cyanosis, clubbing, edema - *Routine Skin Exam Present: warm. Absent: rash - *Routine Neurological Exam Present: alert, oriented X3 Results Labs on day of discharge: Labs from last 24 hours 08/16/18 08/16/18 07:00 07:00 WBC 11.4 H D RBC 3.74 L Hgb 9.6 L Hct 30.5 L MCV 81.5 MCH 25.6 L MCHC 31.4 L RDW 14.1 Plt Count 563 H MPV 6.9 L Neut % (Auto) 94.2 H Lymph % (Auto) 3.1 L [place] % (Auto) 2.7 Eos % (Auto) 0.0 L Baso % (Auto) 0.0 L Neut # (Auto) 10.7 H Lymph # (Auto) 0.3 L [place] # (Auto) 0.3 Eos # (Auto) 0.0 Baso # (Auto) 0.0 Total Counted 100 Neutrophils % (Manual) 93 H Band Neutrophils % 3.0 Lymphocytes % (Manual) 3 L Monocytes % (Manual) 1 L Platelet Estimate Marked increase Sodium 139 Potassium 4.1 Chloride 102 Carbon Dioxide 27 Anion Gap 14.1 BUN 20 H D Creatinine 0.79 Estimated Creat Clear 57 Estimated GFR 99 Est GFR ( Amer) 120 D Glucose 143 H Calcium 9.0 Preliminary micro results at discharge 08/14/18 12:30 Blood Culture - Preliminary Blood NO GROWTH AFTER 48 HOURS 08/14/18 12:30 Blood Culture - Preliminary Blood NO GROWTH AFTER 48 HOURS 08/15/18 09:05 Sputum Culture - Preliminary Sputum - Expectorated Sputum DS: Diagnosis - Discharge Diagnosis (1) Community acquired pneumonia Status: Acute (2) Pulmonary fibrosis Status: Chronic (3) Anemia, unspecified Status: Chronic (4) Chronic obstructive lung disease Status: Chronic (5) Coronary arteriosclerosis Status: Chronic (6) Ex-smoker Status: Chronic (7) Stented coronary artery Status: Chronic (8) Nodular silicosis Status: Chronic Discharge Plan - Patient Discharge Instructions ACTIVITY: Continue current activity DIET: continue same diet Patient Instructions: DI for Pneumonia -- Adult - Follow up Plan Follow up with: Troy Valencia MD [Primary Care Provider] - 08/22/18 Disposition: Home, Self-Senior Care Medications: Home Medications Medication Instructions Recorded Confirmed Type albuterol sulfate HFA 90 2 puff INHALATION Q4-6H PRN 06/18/17 08/14/18 History mcg/actuation aerosol inhaler amlodipine 5 mg tablet 5 mg PO DAILY 06/18/17 08/14/18 History aspirin 81 mg tablet,delayed 81 mg PO DAILY tab 06/18/17 08/14/18 History release atorvastatin 40 mg tablet 40 mg PO HS 06/18/17 08/14/18 History metoprolol succinate ER 25 mg 25 mg PO DAILY tab 06/18/17 08/14/18 History tablet,extended release 24 hr nitroglycerin 0.4 mg sublingual 0.4 mg SUBLINGUAL Q5M PRN 06/18/17 08/14/18 History tablet ticagrelor 90 mg tablet 90 mg PO BID 06/18/17 08/14/18 History Fluticasone Propionate 1 spr NOSTRIL-B DAILY 08/15/18 08/15/18 History Fluticasone/Umeclidin/Vilanter 1 puff IH DAILY 08/15/18 08/15/18 History [Hong [place] 100-62.5-25] Azithromycin [Zithromax 500mg Tab 500 mg PO DAILY #3 tab 08/16/18 Rx Tri-Jamaal] Cefdinir [Omnicef 300mg Capsule] 300 mg PO BID #10 cap 08/16/18 Rx Prescriptions/Medication Reconciliation: New Cefdinir [Omnicef 300mg Capsule] 300 mg PO BID #10 cap Azithromycin [Zithromax 500mg Tab Tri-Jamaal] 500 mg PO DAILY #3 tab Continue amlodipine 5 mg tablet 5 mg PO DAILY aspirin 81 mg tablet,delayed release 81 mg PO DAILY tab ticagrelor 90 mg tablet 90 mg PO BID metoprolol succinate ER 25 mg tablet,extended release 24 hr 25 mg PO DAILY tab nitroglycerin 0.4 mg sublingual tablet 0.4 mg SUBLINGUAL Q5M PRN PRN Reason: Chest Pain albuterol sulfate HFA 90 mcg/actuation aerosol inhaler 2 puff INHALATION Q4- 6H PRN PRN Reason: Shortness Of Breath atorvastatin 40 mg tablet 40 mg PO HS Fluticasone Propionate 1 spr NOSTRIL-B DAILY Fluticasone/Umeclidin/Vilanter [Trelegy Ellipta 100-62.5-25] 1 puff IH DAILY
== END 2018-08-16 12:50 | disposition home or self-care (01) | DRG 195 ==
LOC: SUPCPDRO → 2ND 12:08 → ER 12:08 → OBSVTOIN 15:57 → 2ND 15:58
PROVIDERS: ADMIT Family Medicine; ATTEND Family Medicine
CPT/HCPCS: 36415; 71010; 71045; 71275; 80048; 83605; 84484; 85007; 85025; 85378; 87040; 87070; 87205; 93005; 93041; 94640; 94761; 96374; 96375; 99285; J0456; J2405; Q9967

== ENCOUNTER → 2018-08-22 13:30 | Outpatient (CLI) | payer BC, SELFPAY ==
--- NOTE | 2018-08-22 13:34 | XR_ITS ---
XR chest 2V HISTORY: ITS.REASON: PNEUMONIA ORDERING PHYSICIAN: Troy Valencia MD PATIENT AGE: 63 years COMPARISON: 08/14/2018 FINDINGS: Normal heart size. Bilateral upper lobe conglomerate masses are once again noted chronic changes. Opacification in the left upper lobe laterally may be slightly improved suggesting improvement in superimposed pneumonia. There is hyperinflation/COPD. IMPRESSION: No change COPD with chronic interstitial changes and conglomerate masses with persistent but improving left upper lobe infiltrate
== END ==
PROVIDERS: PCP Family Medicine; Visit Provider Family Medicine
DX: J18.9 Pneumonia, unspecified organism (principal)
CPT/HCPCS: 71046

== ENCOUNTER 2018-10-04 14:04 | Emergency (ER) | payer BC, SELFPAY ==
[2018-10-04 14:17] VITALS: BP 121/73; PULSE 92; RESP 22; TEMP 36.7; O2SAT 98; BMI 17.2
--- NOTE | 2018-10-04 14:21 | XR_ITS ---
XR chest 2V HISTORY: Chest pain, shortness of air, silicosis ITS.REASON: chest pain/soa ORDERING PHYSICIAN: Corona Lorenzo MD PATIENT AGE: 408/22/2017 COMPARISON: None FINDINGS: The cardiomediastinal silhouette and pulmonary vascularity are within normal limits. Bilateral upper lobe conglomerate masses are once again noted. Pleural thickening is present in the right apex laterally. There is diffuse interstitial fibrotic changes noted. There is slight increased density in the right upper lobe and left upper lobe adjacent to the conglomerate masses which may related to superimposed pneumonia or atelectasis. There is hyperinflation consistent with COPD. No acute bony anomalies. IMPRESSION: COPD with interstitial fibrotic changes in bilateral upper lobe masses as before with suspected superimposed patchy infiltrate in both upper lobes.
[2018-10-04 14:30] LABS: Basophils % 0.7 % (0.1-2.0); Eosinophils # 0.1 K/mm3 (0.0-0.4); Eosinophils % 2.1 % (0.1-12.0); Hematocrit 31.8 % (42.0-52.0); Hemoglobin 9.4 g/dL (14.1-18.0); Lymphocytes # 0.6 K/mm3 (0.7-4.5); Lymphocytes % 10.9 % (10-50); Mean Corpuscular HGB Conc 29.6 g/dL (31.8-35.4); Mean Corpuscular Hemoglobin 25.1 pg (27.0-31.2); Mean Platelet Volume 6.7 fl (7.4-10.4); Monocytes # 0.4 K/mm3 (0.1-1.0); Monocytes % 7.4 % (1.7-9.3); Neutrophils # 4.4 K/mm3 (1.8-7.8); Neutrophils % 78.9 % (37.0-80.0); Platelet Count 455 K/mm3 (142-424); Red Blood Count 3.74 M/mm3 (4.60-6.20); Red Cell Distribution Width 22.4 % (11.5-17.5); White Blood Count 5.6 K/mm3 (4.8-10.8)
--- NOTE | 2018-10-04 14:35 | [facility].EDGENADL ---
ED Disposition Clinical Impression: COPD (chronic obstructive pulmonary disease) Qualifiers: COPD type: COPD with acute exacerbation Qualified Code(s): J44.1 - Chronic obstructive pulmonary disease with (acute) exacerbation Disposition: Home, Self-Care Condition on Discharge: Good Instructions: DI for Atypical Chest Pain Prescriptions: Albuterol Sulfate [Albuterol HFA Inhaler] 1 - 2 puffs IH Q4-6H PRN #1 inh PRN Reason: Shortness Of Breath Or Wheezing levoFLOXacin [Levaquin 500mg tab] 500 mg PO DAILY #7 tab methylPREDNISolone [Medrol 4mg tab] 4 mg PO DIRECTED #21 tab Referrals: Provider,Referral, [Referring] - - Critical Care Critical Care Time: No Attestation: On 10/04/18, the high probability of a clinically significant, sudden or life threatening deterioration of the following system(s) required my full and direct attention, intervention and personal management. The time I documented below is in addition to time spent performing reported procedures but includes the following listed in this critical care notation. Medical Decision Making - Medical Records Medical records reviewed: Yes: I reviewed the patient's medical records. - Zia Inquiry Pt receiving controlled substance: No Vital Signs: 10/04/18 14:17 10/04/18 15:52 Temperature 98.0 F Temperature Source Oral Pulse Rate [Left Radial] 92 H 92 H Respiratory Rate 22 Blood Pressure [Right Arm] 121/73 114/77 Blood Pressure Mean [Right Arm] 89 89 Blood Pressure Source [Right Arm] Automatic Cuff Automatic Cuff Blood Pressure Position [Right Arm] Sitting Sitting 02 Sat by Pulse Oximetry 98 95 Oxygen Delivery Method Room Air Room Air - Lab Data Lab results reviewed: Yes: I reviewed the patient's lab results. Lab Results 10/04/18 14:15: WBC 5.6, RBC 3.74 L, Hgb 9.4 L, Hct 31.8 L, MCV 85.0, MCH 25.1 L, MCHC 29.6 L, RDW 22.4 H, Plt Count 455 H, MPV 6.7 L, Neut % (Auto) 78.9, Lymph % (Auto) 10.9, [place] % (Auto) 7.4, Eos % (Auto) 2.1, Baso % (Auto) 0.7, Neut # (Auto) 4.4, Lymph # (Auto) 0.6 L, [place] # (Auto) 0.4, Eos # (Auto) 0.1, Baso # (Auto) 0.0 10/04/18 14:15: Sodium 138, Potassium 3.9, Chloride 102, Carbon Dioxide 23, Anion Gap 16.9 H, BUN 12, Creatinine 0.84, Estimated Creat Clear 59, Estimated GFR 93, Est GFR ( Amer) 112, Glucose 99, Calcium 8.8, Total Bilirubin 0.5, AST 27, ALT 44, Alkaline Phosphatase 85, Total Protein 7.0, Albumin 3.1 L, Globulin 3.9 H, Albumin/Globulin Ratio 0.8 L 10/04/18 14:15: Lactate 1.2 10/04/18 14:15: D-Dimer 391 10/04/18 14:15: Troponin I < 0.02, Lipase 76 10/04/18 14:15: B-Natriuretic Peptide 150 H Result diagrams: 10/04/18 14:15 10/04/18 14:15 Orders (Tests/Meds): ED MEDICATIONS Discontinued Medications Generic Name Dose Route Start Last Admin Trade Name Freq PRN Reason Stop Dose Admin Albuterol/Ipratropium 3 ml 10/04/18 14:23 10/04/18 14:25 Duoneb 3ml [facility] 10/04/18 14:24 Not Given ONCE ONE Albuterol/Ipratropium 3 ml 10/04/18 14:23 10/04/18 14:25 Duoneb 3ml [facility] 10/04/18 14:24 3 ml ONCE ONE Administration Albuterol/Ipratropium 3 ml 10/04/18 14:34 10/04/18 14:37 Duoneb 3ml [facility] 10/04/18 14:35 Not Given ONCE ONE Methylprednisolone Sodium Succinate 125 mg 10/04/18 14:23 10/04/18 14:24 Solu-Medrol 125mg/2ml Vial IV 10/04/18 14:24 125 mg ONCE ONE Administration Methylprednisolone Sodium Succinate 125 mg 10/04/18 14:23 10/04/18 14:26 Solu-Medrol 125mg/2ml Vial IV 10/04/18 14:24 Not Given ONCE ONE Methylprednisolone Sodium Succinate 125 mg 10/04/18 14:34 10/04/18 14:37 Solu-Medrol 125mg/2ml Vial IV 10/04/18 14:35 Not Given ONCE ONE ORDERS Category Date Time Status XR chest 2V Stat Exams 10/04/18 14:21 Taken Blood Culture Stat Micro 10/04/18 14:15 Received - Radiology Data #1 Image(s): Chest Image Reviewed: Yes I reviewed the patient's radiology image Preliminary Findings: Abnormal (dalila
--- NOTE | 2018-10-04 14:38 | ED_ITS ---
ED Disposition Clinical Impression: COPD (chronic obstructive pulmonary disease) Qualifiers: COPD type: COPD with acute exacerbation Qualified Code(s): J44.1 - Chronic obstructive pulmonary disease with (acute) exacerbation Disposition: Home, Self-Care Condition on Discharge: Good Instructions: DI for Atypical Chest Pain Prescriptions: Albuterol Sulfate [Albuterol HFA Inhaler] 1 - 2 puffs IH Q4-6H PRN #1 inh PRN Reason: Shortness Of Breath Or Wheezing levoFLOXacin [Levaquin 500mg tab] 500 mg PO DAILY #7 tab methylPREDNISolone [Medrol 4mg tab] 4 mg PO DIRECTED #21 tab Referrals: Provider,Referral, [Referring] - - Critical Care Critical Care Time: No Attestation: On 10/04/18, the high probability of a clinically significant, sudden or life threatening deterioration of the following system(s) required my full and direct attention, intervention and personal management. The time I documented below is in addition to time spent performing reported procedures but includes the following listed in this critical care notation. Medical Decision Making - Medical Records Medical records reviewed: Yes: I reviewed the patient's medical records. - Zia Inquiry Pt receiving controlled substance: No Vital Signs: 10/04/18 14:17 10/04/18 15:52 Temperature 98.0 F Temperature Source Oral Pulse Rate [Left Radial] 92 H 92 H Respiratory Rate 22 Blood Pressure [Right Arm] 121/73 114/77 Blood Pressure Mean [Right Arm] 89 89 Blood Pressure Source [Right Arm] Automatic Cuff Automatic Cuff Blood Pressure Position [Right Arm] Sitting Sitting 02 Sat by Pulse Oximetry 98 95 Oxygen Delivery Method Room Air Room Air - Lab Data Lab results reviewed: Yes: I reviewed the patient's lab results. Lab Results 10/04/18 14:15: WBC 5.6, RBC 3.74 L, Hgb 9.4 L, Hct 31.8 L, MCV 85.0, MCH 25.1 L , MCHC 29.6 L, RDW 22.4 H, Plt Count 455 H, MPV 6.7 L, Neut % (Auto) 78.9, Lymph % (Auto) 10.9, [place] % (Auto) 7.4, Eos % (Auto) 2.1, Baso % (Auto) 0.7, Neut # (Auto) 4.4, Lymph # (Auto) 0.6 L, [place] # (Auto) 0.4, Eos # (Auto) 0.1, Baso # (Auto) 0.0 10/04/18 14:15: Sodium 138, Potassium 3.9, Chloride 102, Carbon Dioxide 23, Anion Gap 16.9 H, BUN 12, Creatinine 0.84, Estimated Creat Clear 59, Estimated GFR 93, Est GFR ( Amer) 112, Glucose 99, Calcium 8.8, Total Bilirubin 0.5, AST 27, ALT 44, Alkaline Phosphatase 85, Total Protein 7.0, Albumin 3.1 L, Globulin 3.9 H, Albumin/Globulin Ratio 0.8 L 10/04/18 14:15: Lactate 1.2 10/04/18 14:15: D-Dimer 391 10/04/18 14:15: Troponin I < 0.02, Lipase 76 10/04/18 14:15: B-Natriuretic Peptide 150 H Result diagrams: 10/04/18 14:15 10/04/18 14:15 Orders (Tests/Meds): ED MEDICATIONS Discontinued Medications Generic Name Dose Route Start Last Admin Trade Name Freq PRN Reason Stop Dose Admin Albuterol/Ipratropium 3 ml 10/04/18 14:23 10/04/18 14:25 Duoneb 3ml [facility] 10/04/18 14:24 Not Given ONCE ONE Albuterol/Ipratropium 3 ml 10/04/18 14:23 10/04/18 14:25 Duoneb 3ml [facility] 10/04/18 14:24 3 ml ONCE ONE Administration Albuterol/Ipratropium 3 ml 10/04/18 14:34 10/04/18 14:37 Duoneb 3ml [facility] 10/04/18 14:35 Not Given ONCE ONE Meth
[2018-10-04 14:44] LABS: Alanine Aminotransferase 44 U/L (12-78); Albumin Level 3.1 gm/dL (3.4-5.0); Albumin/Globulin Ratio 0.8 (1.1-1.8); Alkaline Phosphatase 85 U/L (46-116); Anion Gap 16.9 mEq/L (5-15); Aspartate Amino Transferase 27 U/L (15-37); Bilirubin,Total 0.5 mg/dL (0.2-1.0); Blood Urea Nitrogen 12 mg/dL (7-18); Calcium 8.8 mg/dL (8.5-10.1); Carbon Dioxide 23 mmol/L (21.0-32.0); Chloride 102 mmol/L (98-107); Creatinine Clearance Estimated 59 mL/min (50-200); Creatinine,Serum 0.84 mg/dL (0.70-1.30); Estimated Glomerular Filt Rate 93 ml/min (>60); GFR (African American) 112 ML/MIN (>60); Globulin 3.9 gm/dl (1.3-3.2); Glucose 99 mg/dL (74-106); Potassium 3.9 mmoL/L (3.5-5.1); Sodium 138 mmol/L (136-145)
[2018-10-04 14:47] LABS: Lactic Acid 1.2 mmol/L (0.4-2.0)
--- NOTE | 2018-10-04 15:00 | HMH.CNCARD ---
History of Present Illness Consult date: 10/04/18 Consult reason: chest pain Chief complaint: chest pain Additional Medical History:: 1. 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 A. Reportedly CAT scans of the last 2 years have shown no significant progression of the nodules. B. Evaluation at [facility], 2018, with diagnosis of Silicosis with 38% of my lung function left 2. Tobacco use discontinued about 2 years ago 3. Significant family history of coronary disease with a brother that at age 57 from a myocardial infarction. 4. History of kidney stones requiring urinary stenting. 5. Hyperlipidemia 6. CAD A. [facility], 03/2017, ANGIOGRAPHIC RESULTS: 1. The left main artery normal 2. The left anterior descending artery has proximal 10% stenoses and a mid vessel concentric 70-80% stenosis. The first diagonal artery is a large vessel and has a mid vessel concentric 70-80% stenosis at a 2.25 mm segment 3. The circumflex artery is nondominant and has a proximal 70-80% stenosis and a 2.5 mm first obtuse marginal artery 4. The right coronary artery is a dominant vessel and has a long proximal concentric 30-40% stenosis with additional mid vessel 30% stenoses. The posterior descending artery has a proximal 60-70% stenosis at a 2.25 mm segment 5. The CARMONA ventriculogram reveals normal estimated at 55-60% 6. The left ventricular end-diastolic pressure 15 mmHg IMPRESSION: 1. Severe disease in the mid LAD which corresponded to the abnormal Myoview 2. Persistent moderate to severe stenosis and a large first obtuse marginal artery 3. Persistent moderate to severe stenosis in the moderate sized posterior ascending artery 4. Preserved ejection fraction 55% 5. Mildly elevated LVEDP 6. Successful stenting of the mid LAD, severe disease reduced to 0% with 1 drug-eluting stent PLAN: 1. Brilinta and aspirin 2. Lipitor in order to achieve an LDL less than 55 3. Risk factor modification 4. Maximize antianginal medications 5. I would like to treat the first obtuse marginal artery medically at this time. It is a large vessel and certainly amenable to stenting however given the Myoview demonstrated anterior ischemia I am confident the mid LAD lesion was the culprit. Should patient continue to have angina pectoris I would recommend free him back and stenting the obtuse marginal artery 6. 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 Patient describes it as a burning sensation with some heartburn symptoms substernally. He feels this is are the same symptoms that he had recently when he was diagnosed with pneumonia and hospitalized in August. Of note patient relates recent increase in lower extremity edema as well. He is on amlodipine. Patient discontinued tobacco use approximately 3 years ago Chest x-ray in ER is pending at this time as well as lab work. EKG is sinus rhythm with left atrial enlargement and no acute changes Cardiology consulted for evaluation [facility] History Medical History: Reports:: Chronic Obstructive Pulmonary Disease (COPD), Coronary Artery Disease, Hyperlipidemia, Hypertension, Kidney Stones, Palpitations Denies:: Diabetes Mellitus Type 1, Diabetes Mellitus Type 2 *Have you ever received a pneumonia vaccine?: No *Have you received a flu vaccine this season?: No Other Medical History: Reports: Arthritis, Other (Pulmonary fibrosis, Nodular Silicosis) Other Surgeries: Yes: Coronary Stent, Other (Bronchoscopy) - *Social History Smoking Status: Former smoker
[2018-10-04 15:02] LABS: Lipase 76 u/L (73-393); Troponin I < 0.02 ng/ml (0.00-0.06)
--- NOTE | 2018-10-04 15:04 | P.CONS_ITS ---
History of Present Illness Consult date: 10/04/18 Consult reason: chest pain Chief complaint: chest pain Additional Medical History:: 1. 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 A. Reportedly CAT scans of the last 2 years have shown no significant progression of the nodules. B. Evaluation at [facility], 2018, with diagnosis of Silicosis with 38% of my lung function left 2. Tobacco use discontinued about 2 years ago 3. Significant family history of coronary disease with a brother that at age 57 from a myocardial infarction. 4. History of kidney stones requiring urinary stenting. 5. Hyperlipidemia 6. CAD A. [facility], 03/2017, ANGIOGRAPHIC RESULTS: 1. The left main artery normal 2. The left anterior descending artery has proximal 10% stenoses and a mid vessel concentric 70-80% stenosis. The first diagonal artery is a large vessel and has a mid vessel concentric 70-80% stenosis at a 2.25 mm segment 3. The circumflex artery is nondominant and has a proximal 70-80% stenosis and a 2.5 mm first obtuse marginal artery 4. The right coronary artery is a dominant vessel and has a long proximal concentric 30-40% stenosis with additional mid vessel 30% stenoses. The posterior descending artery has a proximal 60-70% stenosis at a 2.25 mm segment 5. The CARMONA ventriculogram reveals normal estimated at 55-60% 6. The left ventricular end-diastolic pressure 15 mmHg IMPRESSION: 1. Severe disease in the mid LAD which corresponded to the abnormal Myoview 2. Persistent moderate to severe stenosis and a large first obtuse marginal artery 3. Persistent moderate to severe stenosis in the moderate sized posterior ascending artery 4. Preserved ejection fraction 55% 5. Mildly elevated LVEDP 6. Successful stenting of the mid LAD, severe disease reduced to 0% with 1 drug-eluting stent PLAN: 1. Brilinta and aspirin 2. Lipitor in order to achieve an LDL less than 55 3. Risk factor modification 4. Maximize antianginal medications 5. I would like to treat the first obtuse marginal artery medically at this time. It is a large vessel and certainly amenable to stenting however given the Myoview demonstrated anterior ischemia I am confident the mid LAD lesion was the culprit. Should patient continue to have angina pectoris I would recommend free him back and stenting the obtuse marginal artery 6. 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 Patient describes it as a burning sensation with some heartburn symptoms substernally. He feels this is are the same symptoms that he had recently when he was diagnosed with pneumonia and hospitalized in August. Of note patient relates recent increase in lower extremity edema as well. He is on amlodipine. Patient discontinued tobacco use approximately 3 years ago Chest x-ray in ER is pending at this time as well as lab work. EKG is sinus rhythm with left atrial enlargement and no acute changes Cardiology consulted for evaluation [facility] History Medical History: Reports:: Chronic Obstructive Pulmonary Disease (COPD), Coronary Artery Disease, Hyperlipidemia, Hypertension, Kidney Stones, Palpi
[2018-10-04 15:24] LABS: D-Dimer 391 ng/mL (0-400)
[2018-10-04 15:52] VITALS: BP 114/77; PULSE 92; O2SAT 95
[2018-10-04 17:31] VITALS: BP 122/69; PULSE 84; RESP 16; TEMP 36.7; O2SAT 96
== END 2018-10-04 17:35 | disposition home or self-care (01) ==
PROVIDERS: Emergency Provider Emergency Medicine Emergency Medical Services; PCP Family Medicine
DX: J44.1 Chronic obstructive pulmonary disease with (acute) exacerbation (principal); I25.10 Atherosclerotic heart disease of native coronary artery without angina pectoris; Z87.891 Personal history of nicotine dependence; I10 Essential (primary) hypertension; J62.8 Pneumoconiosis due to other dust containing silica; D64.9 Anemia, unspecified; Z95.5 Presence of coronary angioplasty implant and graft
CPT/HCPCS: 71046; 80053; 83605; 83690; 83880; 84484; 85025; 85378; 87040; 93005; 96374; 99284

== ENCOUNTER → 2019-01-08 12:47 | Outpatient (CLI) | payer BC, SELFPAY ==
--- NOTE | 2019-01-08 13:00 | FL_ITS ---
PROCEDURE: FL BARIUM SWALLOW MODIFIED CLINICAL INDICATION: DYSPHAGIA COMPARISON: No exams were available for comparison TECHNIQUE: Patient administered varying consistencies of barium contrast, while viewed in lateral position under real-time fluoroscopy with cine recording. FLUOROSCOPY TIME:1 minutes and 42 seconds The study was performed in conjunction with speech pathologist. Please see that report & recommendations. FINDINGS: Patient was given varying consistencies of barium. No aspiration or penetration apparent IMPRESSION: Unremarkable modified barium swallow. Please see speech pathologist report and recommendations. Dictated by: Carson Olivas MD 01/13/2019 10:57 Electronically signed by Carson Olivas MD in [place] 01/16/2019 11:58
--- NOTE | 2019-01-08 14:00 | HMH.SLMBS2 ---
Speech & Language Evaluation Speech/Language Mod Barium Swallow Start: 01/08/19 13:54 Freq: once Status: Complete Protocol: Document 01/08/19 13:54 APARNA (Rec: 01/08/19 13:59 APARNA [id number]) [facility] [place] Recommendations Diet Dietary Recommendations Regular,Thin Liquids Treatment/Strategies Strategy/Precaution Recommend Sitting Upright (90 deg),Small Bites and Sips,Alternate Liquids/Solids Referrals/Other Recommended Referrals GI Consult Mod Barium Swallow Impressions Summary and Impressions Oral Phase Impression No Impairment (WFL) Oral Phase Summary Mr. May was given the following consistencies: thins via straw and open cup, pudding, mechanical soft, regular, and pill with thin wash. No signs of dysphagia noted with oral phase of swallowing. Pharyngeal Phase Impression No Impairment (WFL) Pharyngeal Phase Summary No impairments noted with pharyngeal phase of swallowing . Speech/Language [facility] [place] [facility] Assessment/Goals/Plan Assessment Date of Evaluation: 01/08/19 Evaluation Type Initial Certification Assessment/Problems Dysphagia Does Patient Qualify for Service No Qualify/Failure Comment No dysphagia noted during examination Plan Pt/Guardian verbally ack understanding Yes of dx/prognosis/goals G -code Required No Mod Barium Swallow Setup Exam Setup Radiologist Carson Olivas Level of Consciousness Awake,Alert,Appropriate, Follows Commands Position (degrees) 90 Mod Barium Swallow-Lat View Textures Lateral View Food Presentation Thin Liquid via Cup,Thin Liquid via Straw,Ground Food- Regular,Barium Tablet,Regular Food,Pudding Oral Phase Labial Closure No Impairment (WFL) Bolus Formation Pooling L/R No Impairment (WFL) Bolus Formation under Tongue No Impairment (WFL) Bolus Formation Scattered Loss No Impairment (WFL) Mastication Rotary Chew No Impairment (WFL) Mastication Munching No Impairment (WFL) Mastication Lateralization No Impairment (WFL) A/P Lingual Propulsion Spills No Impairment (WFL) Lingual Movement No Impairment (WFL) Residue Clearing No Impairment (WFL) Aspiration? No Silent aspiration? No Pharyngeal Phase Swallow Response Delay No Impairment (WFL) Base o
== END ==
PROVIDERS: PCP Family Medicine; Visit Provider Family Medicine
DX: R13.10 Dysphagia, unspecified (principal)
CPT/HCPCS: 70371; 92611

== ENCOUNTER 2019-03-14 12:57 | Inpatient (IN) ==
--- NOTE | 2019-03-14 13:15 | Emergency Department Note ---
ED Disposition Clinical Impression: Elevated troponin Pneumonia Qualifiers: Pneumonia type: due to unspecified organism Laterality: left Lung location: lower lobe of lung Qualified Code(s): J18.9 - Pneumonia, unspecified organism Disposition: Admitted as Observation Condition on Discharge: Fair Referrals: Provider,Referral, [Referring] - - Critical Care Critical Care Time: No Attestation: On 03/14/19, the high probability of a clinically significant, sudden or life th reatening deterioration of the following system(s) required my full and direct attention, intervention and personal management. The time I documented below is in addition to time spent performing reported procedures but includes the following listed in this critical care notation. Medical Decision Making - Zia Inquiry Pt receiving controlled substance: No Vital Signs: 03/14/19 12:59 03/14/19 13:27 Temperature 97.8 F Temperature Source Oral Pulse Rate [Left Radial] 97 H Respiratory Rate 22 Blood Pressure [Right Arm] 130/72 Blood Pressure Mean [Right Arm] 91 Blood Pressure Position [Right Arm] Sitting 02 Sat by Pulse Oximetry 98 97 Oxygen Delivery Method Room Air Nasal Cannula Oxygen Flow Rate (LPM) 26 - Lab Data Lab Results 03/14/19 13:00: WBC 5.9, RBC 3.54 L, Hgb 9.9 L, Hct 33.0 L, MCV 93.0, MCH 27.9, MCHC 29.9 L, RDW 16.0, Plt Count 459 H, MPV 7.7, Neut % (Auto) 73.5, Lymph % (Auto) 16.3, Cross % (Auto) 5.6, Eos % (Auto) 4.0, Baso % (Auto) 0.6, Neut # (Auto) 4.4, Lymph # (Auto) 1.0, Cross # (Auto) 0.3, Eos # (Auto) 0.2, Baso # (Auto) 0.0 03/14/19 13:00: Sodium 140, Potassium 4.0, Chloride 103, Carbon Dioxide 28, Anion Gap 13.0, BUN 17, Creatinine 0.77, Estimated Creat Clear 55, Estimated GFR 102, Est GFR ( Amer) 124, Glucose 102, Calcium 9.0, Total Bilirubin 0.4, AST 19, ALT 25, Alkaline Phosphatase 85, Troponin I 0.09 H, Total Protein 7.1, Albumin 3.3 L, Globulin 3.8 H, Albumin/Globulin Ratio 0.9 L 03/14/19 13:00: B-Natriuretic Peptide 197 H Result diagrams: 03/14/19 13:00 03/14/19 13:00 Orders (Tests/Meds): ED MEDICATIONS Generic Name Dose Route Start Last Admin Trade Name Freq PRN Reason Stop Dose Admin Ceftriaxone Sodium 1 gm/ 50 mls @ 100 mls/hr 03/14/19 14:30 03/14/19 14:48 Sodium Chloride IV 03/28/19 14:29 100 mls/hr Q24H MAGDY Administration Protocol Azithromycin 500 mg/ Sodium 250 mls @ 250 mls/hr 03/14/19 14:30 03/14/19 14:57 Chloride IV 03/28/19 14:29 250 mls/hr Q24H MAGDY Administration Protocol Discontinued Medications Generic Name Dose Route Start Last Admin Trade Name Freq PRN Reason Stop Dose Admin Aspirin 324 mg 03/14/19 14:39 03/14/19 14:58 Aspirin 81mg Chewable Tablet PO 03/14/19 14:40 324 mg ONCE ONE Administration Methylprednisolone Sodium Succinate 125 mg 03/14/19 14:23 03/14/19 14:47 Solu-Medrol 125mg/2ml Vial IV 03/14/19 14:24 125 mg ONCE ONE Administration - Radiology Data #1 Image(s): Chest Image Reviewed: Yes I reviewed the patient's radiology image, Yes I discussed t he image results w/the radiologist, Yes I have reviewed radiologist's interpretation FINDINGS: The cardiomediastinal silhouette and pulmonary vascularity are within normal limits. Chronic changes are present with chronic bilateral upper lobe conglomerate masses. There is some pleural thickening in the right upper lobe laterally. There is some patchy density in the left lung base which is not present on the previous study may be due to patchy area of infiltrate. There are emphysematous changes. No acute bony findings. IMPRESSION: Chronic changes with COPD/emphysema, conglomerate masses with patchy infiltrate in the left lower lobe Dictated by: Carson Olivas MD 03/14/2019 14:07 Electronically signed by Carson Olivas MD in [place] 03/14/2019 14:07 - ECG Data Tracing #1 EKG interpreted by Danial Martins MD: Rhythm: sinus Rate: 90 [place]: normal Ectopy: none Conduction: Incomplete right bundle branch block ST Segment Changes: Nonspecific T Wave Changes: none Q Waves: none No evidence of acute ischemia or injury Baseline artifact and wander present, but I consider the EKG adequate for accurate interpretation. - Physician Consults Physician Consulted: Joby Valencia Time: 15:03 Reason -: Admission Comment/Response: Agrees to admit the patient to the hospital. We discussed the patient's clinical information, including history, exam, laboratory and radiology results and ED course. Per hospital procedure, I will write temporary bridge inpatient orders on the patient. Specific orders requested by the admitting physician: Continue current treatment - CHRISTOS Score for Non-Stemi Age of Patient: 60-69 years old Heart Rate: 90-109 bpm Systolic Blood Pressure: 120-139 mmhg Serum Creatinine: 0.40-0.79 mg/dl CHF Killip Class: I-No CHF Other Risk Factors: None Non-Stemi Risk Score: 111 General Adult HPI - General Chief complaint: Shortness of Breath/Dyspnea Stated complaint: sob Time Seen by Provider: 03/14/19 13:14 Mode of Arrival: Ambulatory Limitations: No Limitations Description of Symptoms (Recalled from ER Triage Doc. by RN): to ed per pvt car with c/o sob x 1 week worse today, +cough pt states hx of "silicosis" denies chest pain, fever, chills. 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 Steadily wo rsening for the past year with increasing dyspnea, dyspnea on exertion, paroxysmal nocturnal dyspnea. He is being seen by specialist at the [facility]. For the past week to 2 he is worsening where he cannot tolerate any movement at all. He is waking up short of breath, has to use his inhaler, and feels like it puts him into an anxiety attack. He cannot walk 5 feet. He has a nebulizer and uses albuterol twice a day. He has an albuterol rescue inhaler and has been increasing his use, now using it 4-5 times per day. He uses a Trelegy Ellipta. He is not on steroids and has not been for some time, since he most recently had pneumonia. Has had some pains in his right shoulder blade area. Currently has no chest pain. Has chronic swelling of both of his legs. Denies fever. Denies hemoptysis. Has chronic sputum production which she says is unchanged. His last nebulizer treatment was last night. - Related Data Home Medications Medication Instructions Recorded Confirmed albuterol sulfate HFA 90 2 puff INHALATION Q4-6H PRN 06/18/17 08/14/18 mcg/actuation aerosol inhaler amlodipine 5 mg tablet 5 mg PO DAILY 06/18/17 08/14/18 aspirin 81 mg tablet,delayed 81 mg PO DAILY tab 06/18/17 08/14/18 release atorvastatin 40 mg tablet 40 mg PO HS 06/18/17 08/14/18 metoprolol succinate ER 25 mg 25 mg PO DAILY tab 06/18/17 08/14/18 tablet,extended release 24 hr nitroglycerin 0.4 mg sublingual 0.4 mg SUBLINGUAL Q5M PRN 06/18/17 08/14/18 tablet ticagrelor 90 mg tablet 90 mg PO BID 06/18/17 08/14/18 Fluticasone Propionate 1 spr NOSTRIL-B DAILY 08/15/18 08/15/18 Fluticasone/Umeclidin/Vilanter 1 puff IH DAILY 08/15/18 08/15/18 [Trelegy Ellipta 100-62.5-25] Previous Rx's Medication Instructions Recorded Azithromycin [Zithromax 500mg Tab 500 mg PO DAILY #3 tab 08/16/18 Tri-Jamaal] Cefdinir [Omnicef 300mg Capsule] 300 mg PO BID #10 cap 08/16/18 Albuterol Sulfate [Albuterol HFA 1 - 2 puffs IH Q4-6H PRN #1 inh 10/04/18 Inhaler] levoFLOXacin [Levaquin 500mg 500 mg PO DAILY #7 tab 10/04/18 tab] methylPREDNISolone [Medrol 4mg 4 mg PO DIRECTED #21 tab 10/04/18 tab] Allergies Allergy/AdvReac Type Severity Reaction Status Date / Time No Known Allergies Allergy Verified 03/15/18 17:41 [facility] History - Hepatitis A Screen Drug use history?: No High risk sexual behaviors?: No History of sexually transmitted infection?: No Currently employed?: No Childcare worker?: No Do you have indoor plumbing?: Yes Do you have electricity?: Yes Attestation statement:: This patient has been screened for Hepatitis A risk factors. I have reviewed the patient's past medical history: Yes Medical History: Reports:: Chronic Obstructive Pulmonary Disease (COPD), Coronary Artery Disease, Hyperlipidemia, Hypertension, Kidney Stones, Palpitations Denies:: Diabetes Mellitus Type 1, Diabetes Mellitus Type 2 Other Medical History: Reports: Arthritis, Other (Pulmonary fibrosis, Nodular Si licosis) Other Surgeries: Yes: Coronary Stent, Other (Bronchoscopy) - Social History Smoking Status: Former smoker Tobacco Type: cigarettes #Yrs smoked (if former smoker): 30 Alcohol Intake: never Alcohol Intake Frequency:: other Occupational Status: employed Housing: house Household Members: family Family Hx:: Coronary Artery Disease, Diabetes, Heart Attack, Hyperlipidemia ROS Obtained: Yes All systems reviewed & no additional complaints - Constitutional Constitutional: Reports fatigue, Denies fever(s), Reports weakness, Reports weight loss - Cardiovascular Cardiovascular: Reports as per HPI, Reports edema - Respiratory Respiratory: Yes cough, Yes dyspnea, No coughing up blood - Gastrointestinal Gastrointestingal: Denies: abdominal pain, vomiting Physical Exam - General General appearance: alert, cachectic Comment: Able to speak in full sentences. Frequent cough. Pulse ox 97% on oxygen. - Head Head exam: atraumatic, normocephalic - Eye Eye exam: Present: normal appearance, EOMI - ENT ENT exam: Present: mucous membranes moist - Neck Neck exam: Present: normal inspection, trachea midline - Chest Chest inspection: Present: normal inspection, symmetric chest wall rise - Respiratory Respiratory exam: Present: other (Decreased breath sounds right) - Cardiovascular Cardiovascular exam: Present: regular rate, normal rhythm, normal heart sounds - Abdominal Exam Abdominal exam: Present: soft, normal bowel sounds. Absent: distention, tenderness - Extremities Exam Extremities exam: Present: normal capillary refill, other (3+ pitting edema of legs and feet bilaterally) - Neurological Exam Neurological exam: Present: alert, oriented X3 - Psychiatric Psychiatric exam: Present: normal affect, normal mood - Skin Skin exam: Present: warm, dry
[2019-03-14 13:20] LABS: Basophils % 0.6 % (0.1-2.0); Eosinophils # 0.2 K/mm3 (0.0-0.4); Hemoglobin 9.9 g/dL (14.1-18.0); Lymphocytes % 16.3 % (10-50); Mean Corpuscular HGB Conc 29.9 g/dL (31.8-35.4); Mean Platelet Volume 7.7 fl (7.4-10.4); Monocytes # 0.3 K/mm3 (0.1-1.0); Monocytes % 5.6 % (1.7-9.3); Neutrophils # 4.4 K/mm3 (1.8-7.8); Neutrophils % 73.5 % (37.0-80.0); Platelet Count 459 K/mm3 (142-424); Red Blood Count 3.54 M/mm3 (4.60-6.20); White Blood Count 5.9 K/mm3 (4.8-10.8)
[2019-03-14 13:36] LABS: Albumin Level 3.3 gm/dL (3.4-5.0); Albumin/Globulin Ratio 0.9 (1.1-1.8); Bilirubin,Total 0.4 mg/dL (0.2-1.0); Globulin 3.8 gm/dl (1.3-3.2); Total Protein,Serum 7.1 gm/dL (6.4-8.2)
--- NOTE | 2019-03-14 15:52 | Pharmacy Consult Notes ---
[facility] Pharmacy VTE Monitoring - Patient Demographics Admission date: 03/14/19 Report Date: 03/14/19 Time: 15:52 Allergies/Adverse Reactions: Patient Allergies No Known Allergies Allergy (Verified 03/15/18 17:41) Height: 1.75 m Weight: 50.802 kg Patient Problems: Current Active Problems Pneumonia (Acute) Elevated troponin (Acute) - VTE Risk Labs: VTE Related Lab Results Hgb 9.9 g/dL (14.1-18.0) L 03/14/19 13:00 Hct 33.0 % (42.0-52.0) L 03/14/19 13:00 Plt Count 459 K/mm3 (142-424) H 03/14/19 13:00 BUN 17 mg/dL (7-18) 03/14/19 13:00 Creatinine 0.77 mg/dL (0.70-1.30) 03/14/19 13:00 Estimated Creat Clear 55 mL/min (50-200) 03/14/19 13:00 - Prophylaxis VTE Prophylaxis Ordered?: Yes Types of VTE Prophylaxis: TEDS Knee High Location of Applied Device: Bilateral Lower Extremeties - VTE Diagnosis Confirmed Treatment or plan recommended: Continue Current Treatment
--- NOTE | 2019-03-14 15:54 | Consult Report ---
History of Present Illness Consult date: 03/14/19 Requesting physician: Troy Valencia Consult reason: shortness of breath Chief complaint: SOA Additional Medical History:: 1. 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 A. Reportedly CAT scans of the last 2 years have shown no significant progression of the nodules. B. Evaluation at [facility], 2018, with diagnosis of Silicosis with "38% of my lung function left" 2. Tobacco use discontinued about 2 years ago 3. Significant family history of coronary disease with a brother that at age 57 from a myocardial infarction. 4. History of kidney stones requiring urinary stenting. 5. Hyperlipidemia 6. CAD A. [facility], 03/2017, ANGIOGRAPHIC RESULTS: 1. The left main artery normal 2. The left anterior descending artery has proximal 10% stenoses and a mid vessel concentric 70-80% stenosis. The first diagonal artery is a large vessel and has a mid vessel concentric 70-80% stenosis at a 2.25 mm segment 3. The circumflex artery is nondominant and has a proximal 70-80% stenosis and a 2.5 mm first obtuse marginal artery 4. The right coronary artery is a dominant vessel and has a long proximal concentric 30-40% stenosis with additional mid vessel 30% stenoses. The posterior descending artery has a proximal 60-70% stenosis at a 2.25 mm segment 5. The CAR[place] ventriculogram reveals normal estimated at 55-60% 6. The left ventricular end-diastolic pressure 15 mmHg IMPRESSION: 1. Severe disease in the mid LAD which corresponded to the abnormal Myoview 2. Persistent moderate to severe stenosis and a large first obtuse marginal artery 3. Persistent moderate to severe stenosis in the moderate sized posterior ascending artery 4. Preserved ejection fraction 55% 5. Mildly elevated LVEDP 6. Successful stenting of the mid LAD, severe disease reduced to 0% with 1 drug-eluting stent PLAN: 1. Brilinta and aspirin 2. Lipitor in order to achieve an LDL less than 55 3. Risk factor modification 4. Maximize antianginal medications 5. I would like to treat the first obtuse marginal artery medically at this time. It is a large vessel and certainly amenable to stenting however given the Myoview demonstrated anterior ischemia I am confident the mid LAD lesion was the culprit. Should patient continue to have angina pectoris I would recommend free him back and stenting the obtuse marginal artery 6. The diagonal artery should be managed medically as should the PDA at this time 7. 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 Steadily worsening for the past year with increasing dyspnea, dyspnea on exertion, paroxysmal nocturnal dyspnea. He is being seen by specialist at the [facility]. For the past week to 2 he is worsening where he cannot tolerate any movement at all. He is waking up short of breath, has to use his inhaler, and feels like it puts him into an anxiety attack. He cannot walk 5 feet. He has a nebulizer and uses albuterol twice a day. He has an albuterol rescue inhaler and has been increasing his use, now using it 4-5 times per day. He uses a Trelegy Ellipta. He is not on steroids and has not been for some time, since he most recently had pneumonia. Has had some pains in his right shoulder blade area. Currently has no chest pain. Has chronic swelling of both of his legs. Denies fever. Denies hemoptysis. Has chronic sputum production which she says is unchanged. His last nebulizer treatment was last night The above per Dr. Martins Patient relates increasing shortness of breath for several days along with increasing lower extremity edema to the point that "felt like my legs were going to burst". Patient's work-up in the ER included EKG which shows chronic ST-T abnormalities unchanged compared with tracing from 09/2018 and an elevated troponin of 0.09. Patient denies any chest pain, pressure or tightness. He adamantly states that he has not had any further angina symptoms since his coronary stenting 2 years ago. He is an ex-smoker and has never been treated for diabetes. [facility] History Medical History: Reports:: Chronic Obstructive Pulmonary Disease (COPD), Coronary Artery Disease, Hyperlipidemia, Hypertension, Kidney Stones, Palpitations Denies:: Diabetes Mellitus Type 1, Diabetes Mellitus Type 2 *Have you ever received a pneumonia vaccine?: No *Have you received a flu vaccine this season?: No Other Medical History: Reports: Arthritis, Other (Pulmonary fibrosis, Nodular Silicosis) Other Surgeries: Yes: Coronary Stent, Other (Bronchoscopy) - *Social History Smoking Status: Former smoker Tobacco Type: cigarettes #Yrs smoked (if former smoker): 30 Alcohol Intake: never Alcohol Intake Frequency:: other *Occupational Status:: employed Housing: house Household Members: family *Travel in the last 8 weeks: None Family Hx:: Coronary Artery Disease, Diabetes, Heart Attack, Hyperlipidemia Meds Home Medications Medication Instructions Recorded Confirmed Type amlodipine 5 mg tablet 5 mg PO DAILY 06/18/17 03/14/19 History aspirin 81 mg tablet,delayed 81 mg PO DAILY tab 06/18/17 03/14/19 History release atorvastatin 40 mg tablet 40 mg PO HS 06/18/17 03/14/19 History metoprolol succinate ER 25 mg 25 mg PO DAILY tab 06/18/17 03/14/19 History tablet,extended release 24 hr nitroglycerin 0.4 mg sublingual 0.4 mg SUBLINGUAL Q5MINP PRN 06/18/17 03/14/19 History tablet ticagrelor 90 mg tablet 90 mg PO BID 06/18/17 03/14/19 History Albuterol Sulfate [Albuterol HFA 2 puffs IH Q4HP PRN 03/14/19 03/14/19 History Inhaler] Ferrous Sulfate 325 mg PO DAILY 03/14/19 03/14/19 History Fluticasone/Umeclidin/Vilanter 1 puff IH DAILY 03/14/19 03/14/19 History [[place]ong Morales 100-62.5-25] Allergies Allergy/AdvReac Type Severity Reaction Status Date / Time No Known Allergies Allergy Verified 03/15/18 17:41 Review of Systems - *Cardiovascular Reports shortness of breath, Reports shortness of breath with activity, Denies chest pain - *Respiratory Reports cough, Reports shortness of breath, Reports shortness of breath with activity - *Gastrointestinal Denies abdominal pain, Denies nausea, Denies vomiting - *Genitourinary Denies blood in urine - *Musculoskeletal Reports joint pain, Reports back pain - *Neurologic Reports weakness, Denies fainting, Denies tingling Exam Vital signs and Labs for Last 24 Hours: Temp Pulse Resp BP Pulse Ox 97.8 F 88 22 99/73 L 98 03/14/19 12:59 03/14/19 15:36 03/14/19 12:59 03/14/19 15:36 03/14/19 15:36 Laboratory Results - last 24 hr 03/14/19 13:00: WBC 5.9, RBC 3.54 L, Hgb 9.9 L, Hct 33.0 L, MCV 93.0, MCH 27.9, MCHC 29.9 L, RDW 16.0, Plt Count 459 H, MPV 7.7, Neut % (Auto) 73.5, Lymph % (Auto) 16.3, [place] % (Auto) 5.6, Eos % (Auto) 4.0, Baso % (Auto) 0.6, Neut # (Auto) 4.4, Lymph # (Auto) 1.0, [place] # (Auto) 0.3, Eos # (Auto) 0.2, Baso # (Auto) 0.0 03/14/19 13:00: Sodium 140, Potassium 4.0, Chloride 103, Carbon Dioxide 28, Anion Gap 13.0, BUN 17, Creatinine 0.77, Estimated Creat Clear 55, Estimated GFR 102, Est GFR ( Amer) 124, Glucose 102, Calcium 9.0, Total Bilirubin 0.4, AST 19, ALT 25, Alkaline Phosphatase 85, Troponin I 0.09 H, Total Protein 7.1, Albumin 3.3 L, Globulin 3.8 H, Albumin/Globulin Ratio 0.9 L 03/14/19 13:00: B-Natriuretic Peptide 197 H I & O for Last 24 hours: Intake & Output 03/12/19 03/13/19 03/14/19 03/15/19 11:59 11:59 11:59 11:59 Weight 112 lb Microbiology Reports for the Last 24 Hours: Microbiology 03/14/19 13:30 Sputum - Expectorated Sputum Gram Stain - Final 03/14/19 13:30 Sputum - Expectorated Sputum Sputum Culture - Final - *Routine HEENT Exam Head: Present: normocephalic Eye: Present: EOMI, PERRL ENT: Present: mucous membranes moist - *Routine Neck Exam Present: supple. Absent: JVD, carotid bruit - *Routine Respiratory Exam Present: decreased breath sounds, crackles, diminished air movement. Absent: accessory muscle use, rales, rhonchi, wheezes - *Routine Cardiovascular Exam Present: RRR. Absent: murmur, gallop, rubs - *Routine Abdominal Exam Present: soft. Absent: tenderness, distended, guarding - *Routine Extremities Exam Present: edema. Absent: calf tenderness - *Routine Neurological Exam Present: alert, oriented X3, moving all extremities Assessment and Plan (1) Pneumonia Current visit: Yes Status: Acute Qualifiers: Pneumonia type: due to unspecified organism Laterality: left Lung location: lower lobe of lung Qualified Code(s): J18.9 - Pneumonia, unspecified organism Category: Medical Code(s): J18.9 - Pneumonia, unspecified organism (2) Abnormal EKG Current visit: Yes Status: Acute Category: Medical Code(s): R94.31 - Abnormal electrocardiogram [ECG] [EKG] (3) Elevated troponin Current visit: Yes Status: Acute Category: Medical Code(s): R79.89 - Other specified abnormal findings of blood chemistry (4) Coronary arteriosclerosis Current visit: No Status: Chronic Category: Medical Code(s): I25.10 - Atherosclerotic heart disease of [place] coronary artery without angina pectoris (5) Ex-smoker Current visit: No Status: Chronic Category: Social Hx Code(s): Z87.891 - Personal history of nicotine dependence (6) Nodular silicosis Current visit: No Status: Chronic Category: Medical Code(s): J62.8 - Pneumoconiosis due to other dust containing silica (7) Stented coronary artery Current visit: No Status: Chronic Category: Surgical Code(s): Z95.5 - Presence of coronary angioplasty implant and graft - Assessment and plan all Dx Assessment and Plan for all problems:: 1. Shortness of breath with elevated troponin in a patient with known coronary disease and silicosis. Suspect that the patient's elevated troponin is secondary to cardiac strain related to acute pneumonia on top of his compromised pulmonary status. Patient is adamant that he has no chest pain/angina at this time like he had in 2017. Recommend continuing his aspirin, Brilinta, amlodipine and metoprolol as per home dosing. 2. Continue serial cardiac enzymes times total of 3 3. We will obtain an echocardiogram to evaluate left ventricular function. 4. If cardiac enzymes return intermediate to within normal limits and echo shows preserved LVEF, then would just continue medical therapy and plan outpatient stress testing to reevaluate known disease of obtuse marginal and PDA arteries.
--- NOTE | 2019-03-14 16:47 | History & Physical Report ---
*Admission Date: 03/14/19 *Chief complaint: Shortness of breath *History of present illness: Patient is a 63-year-old male who came into her ED after having trouble breathing. He has underlying lung disease, silicosis, for which he uses trilogy and Ventolin. He mentions that he has been using his Ventolin more than usual for the past few days. 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 He denies using any home oxygen. He denies having any fever, chills, nausea, vomiting, diarrhea at this time. He does have some nonproductive sputum that is been going on for the past 2 to 3 days. Denies having any chest pain or anginal symptoms now or in the past 30 days. He does not endorse of getting short of breath and not able to do more than 10-20 steps. [facility] History I have reviewed the patient's past medical history: Yes Medical History: Reports:: Chronic Obstructive Pulmonary Disease (COPD), Coronary Artery Disease, Hyperlipidemia, Hypertension, Kidney Stones, Palpitations Denies:: Diabetes Mellitus Type 1, Diabetes Mellitus Type 2 *Have you ever received a pneumonia vaccine?: No *Have you received a flu vaccine this season?: No Other Medical History: Reports: Arthritis, Other (Pulmonary fibrosis, Nodular Silicosis) Other Surgeries: Yes: Coronary Stent, Other (Bronchoscopy) - *Social History Smoking Status: Former smoker Tobacco Type: cigarettes #Yrs smoked (if former smoker): 30 Alcohol Intake: never Alcohol Intake Frequency:: other *Occupational Status:: employed Housing: house Household Members: family *Travel in the last 8 weeks: None Family Hx:: Coronary Artery Disease, Diabetes, Heart Attack, Hyperlipidemia Review of Systems - Constitutional Reports fatigue, Reports lack of energy - Eyes Denies blurry vision, Denies bulging eyes - ENT Denies bleeding gums, Denies nosebleed, Denies hoarseness - *Cardiovascular Reports shortness of breath, Reports shortness of breath with activity, Denies chest pain, Denies chest pain at rest, Denies chest pain with activity, Denies leg swelling - *Respiratory Reports chest congestion, Reports cough, Reports shortness of breath, Reports shortness of breath with activity, Denies change in phlegm color - *Gastrointestinal Denies abdominal pain, Denies coffee ground vomit, Denies difficulty swallowing - *Genitourinary Denies difficulty urinating - *Musculoskeletal Denies abnormal walking, Denies decreased muscle mass - Integumentary/Breasts Denies bleeding lesions - *Neurologic Reports weakness, Denies abnormal walking, Denies fainting, Denies tingling - Psychiatric Denies abnormal sleep pattern, Denies lack of enjoyment - Endocrine Denies cold intolerance - Hematologic/Lymphatic Denies easy bleeding Meds Home Medications Medication Instructions Recorded Confirmed Type amlodipine 5 mg tablet 5 mg PO DAILY 06/18/17 03/14/19 History aspirin 81 mg tablet,delayed 81 mg PO DAILY tab 06/18/17 03/14/19 History release atorvastatin 40 mg tablet 40 mg PO HS 06/18/17 03/14/19 History metoprolol succinate ER 25 mg 25 mg PO DAILY tab 06/18/17 03/14/19 History tablet,extended release 24 hr nitroglycerin 0.4 mg sublingual 0.4 mg SUBLINGUAL Q5MINP PRN 06/18/17 03/14/19 History tablet ticagrelor 90 mg tablet 90 mg PO BID 06/18/17 03/14/19 History Albuterol Sulfate [Albuterol HFA 2 puffs IH Q4HP PRN 03/14/19 03/14/19 History Inhaler] Ferrous Sulfate 325 mg PO DAILY 03/14/19 03/14/19 History Fluticasone/Umeclidin/Vilanter 1 puff IH DAILY 03/14/19 03/14/19 History [Trelegy Ellipta 100-62.5-25] Allergies Allergy/AdvReac Type Severity Reaction Status Date / Time No Known Allergies Allergy Verified 03/15/18 17:41 Exam Vital signs and Labs for Last 24 Hours: Temp Pulse Resp BP Pulse Ox 98 F 88 22 105/74 L 98 03/14/19 16:04 03/14/19 16:04 03/14/19 16:04 03/14/19 16:04 03/14/19 15:36 Laboratory Results - last 24 hr 03/14/19 13:00: WBC 5.9, RBC 3.54 L, Hgb 9.9 L, Hct 33.0 L, MCV 93.0, MCH 27.9, MCHC 29.9 L, RDW 16.0, Plt Count 459 H, MPV 7.7, Neut % (Auto) 73.5, Lymph % (Auto) 16.3, [place] % (Auto) 5.6, Eos % (Auto) 4.0, Baso % (Auto) 0.6, Neut # (Auto) 4.4, Lymph # (Auto) 1.0, [place] # (Auto) 0.3, Eos # (Auto) 0.2, Baso # (Auto) 0.0 03/14/19 13:00: Sodium 140, Potassium 4.0, Chloride 103, Carbon Dioxide 28, Anion Gap 13.0, BUN 17, Creatinine 0.77, Estimated Creat Clear 55, Estimated GFR 102, Est GFR ( Amer) 124, Glucose 102, Calcium 9.0, Total Bilirubin 0.4, AST 19, ALT 25, Alkaline Phosphatase 85, Troponin I 0.09 H, Total Protein 7.1, Albumin 3.3 L, Globulin 3.8 H, Albumin/Globulin Ratio 0.9 L 03/14/19 13:00: B-Natriuretic Peptide 197 H I & O for Last 24 hours: Intake & Output 03/12/19 03/13/19 03/14/19 03/15/19 11:59 11:59 11:59 11:59 Weight 112 lb Microbiology Reports for the Last 24 Hours: Microbiology 03/14/19 13:30 Sputum - Expectorated Sputum Gram Stain - Final 03/14/19 13:30 Sputum - Expectorated Sputum Sputum Culture - Final - *Routine HEENT Exam Head: Present: normocephalic Eye: Present: EOMI, PERRL ENT: Present: mucous membranes moist - *Routine Neck Exam Present: supple. Absent: lymphadenopathy - *Routine Respiratory Exam Present: decreased breath sounds (Bilateral base). Absent: accessory muscle use, respiratory distress Comments: on 2 L of oxygen nasal cannula - *Routine Cardiovascular Exam Present: RRR - *Routine Abdominal Exam Present: soft, normoactive bowel sounds. Absent: tenderness - *Routine Extremities Exam Absent: cyanosis, clubbing, edema - *Routine Skin Exam Present: warm. Absent: rash - *Routine Neurological Exam Present: alert, oriented X3 Assessment and Plan (1) Pneumonia Current visit: Yes Status: Acute Qualifiers: Pneumonia type: due to unspecified organism Laterality: left Lung location: lower lobe of lung Qualified Code(s): J18.9 - Pneumonia, unspecified organism Category: Medical Code(s): J18.9 - Pneumonia, unspecified organism (2) Abnormal EKG Current visit: Yes Status: Acute Category: Medical Code(s): R94.31 - Abnormal electrocardiogram [ECG] [EKG] (3) Elevated troponin Current visit: Yes Status: Acute Category: Medical Code(s): R79.89 - Other specified abnormal findings of blood chemistry (4) Coronary arteriosclerosis Current visit: No Status: Chronic Category: Medical Code(s): I25.10 - Atherosclerotic heart disease of [place] coronary artery without angina pectoris (5) Ex-smoker Current visit: No Status: Chronic Category: Social Hx Code(s): Z87.891 - Personal history of nicotine dependence (6) Nodular silicosis Current visit: No Status: Chronic Category: Medical Code(s): J62.8 - Pneumoconiosis due to other dust containing silica (7) Stented coronary artery Current visit: No Status: Chronic Category: Surgical Code(s): Z95.5 - Presence of coronary angioplasty implant and graft - Assessment and plan all Dx Assessment and Plan for all problems:: Continue IV antibiotics and steroids. Less likely cardiac etiology, however will get serial cardiac enzymes and echocardiogram to rule it out. We will wean him off oxygen and assess the need for home oxygen.
--- NOTE | 2019-03-15 09:16 | Progress Note ---
Internal Medicine - PN: Subj *Date: 03/15/19 *Time: 09:13 Interval history: He is comfortable but short of breath and requiring oxygen. He has greater than 2+ edema of the lower extremities and feet. He needs diuresis. Chest x-ray was reviewed Exam Vital signs and Labs for Last 24 Hours: Temp Pulse Resp BP Pulse Ox 97.6 F 104 H 21 101/60 L 99 03/15/19 07:26 03/15/19 07:26 03/15/19 07:26 03/15/19 07:26 03/15/19 07:26 Laboratory Results - last 24 hr 03/14/19 13:00: WBC 5.9, RBC 3.54 L, Hgb 9.9 L, Hct 33.0 L, MCV 93.0, MCH 27.9, MCHC 29.9 L, RDW 16.0, Plt Count 459 H, MPV 7.7, Neut % (Auto) 73.5, Lymph % (Auto) 16.3, [place] % (Auto) 5.6, Eos % (Auto) 4.0, Baso % (Auto) 0.6, Neut # (Auto) 4.4, Lymph # (Auto) 1.0, [place] # (Auto) 0.3, Eos # (Auto) 0.2, Baso # (Auto) 0.0 03/14/19 13:00: Sodium 140, Potassium 4.0, Chloride 103, Carbon Dioxide 28, A nion Gap 13.0, BUN 17, Creatinine 0.77, Estimated Creat Clear 55, Estimated GFR 102, Est GFR ( Amer) 124, Glucose 102, Calcium 9.0, Total Bilirubin 0.4, AST 19, ALT 25, Alkaline Phosphatase 85, Troponin I 0.09 H, Total Protein 7.1, Albumin 3.3 L, Globulin 3.8 H, Albumin/Globulin Ratio 0.9 L 03/14/19 13:00: B-Natriuretic Peptide 197 H 03/14/19 18:20: Troponin I 0.07 H 03/14/19 21:16: Troponin I 0.06 I & O for Last 24 hours: Intake & Output 03/12/19 03/13/19 03/14/19 03/15/19 11:59 11:59 11:59 11:59 Intake Total 928 / 928 Output Total 625 / 625 Balance 303 / 303 Weight 112 lb 1 oz Microbiology Reports for the Last 24 Hours: Microbiology 03/14/19 13:30 Sputum - Expectorated Sputum Gram Stain - Final 03/14/19 13:30 Sputum - Expectorated Sputum Sputum Culture - Final - Constitutional no acute distress - *Routine HEENT Exam Head: Present: normocephalic Eye: Present: PERRL ENT: Present: mucous membranes moist - *Routine Neck Exam Present: supple - Routine Chest/Breast/Axilla Exam Chest wall: Absent: tenderness - *Routine Respiratory Exam Present: decreased breath sounds, CTA bilaterally - *Routine Cardiovascular Exam Present: RRR - *Routine Abdominal Exam Present: soft Comments: Scaphoid - *Routine Extremities Exam Present: edema (Greater than 2+) - *Routine Neurological Exam Present: alert, oriented X3 Assessment and Plan (1) COPD exacerbation Current visit: No Status: Acute Category: Medical Code(s): J44.1 - Chronic obstructive pulmonary disease with (acute) exacerbation (2) Pneumonia Current visit: Yes Status: Acute Qualifiers: Pneumonia type: due to unspecified organism Laterality: left Lung location: lower lobe of lung Qualified Code(s): J18.9 - Pneumonia, unspecified organism Category: Medical Code(s): J18.9 - Pneumonia, unspecified organism (3) Abnormal EKG Current visit: Yes Status: Acute Category: Medical Code(s): R94.31 - Abnormal electrocardiogram [ECG] [EKG] (4) Elevated troponin Current visit: Yes Status: Acute Category: Medical Code(s): R79.89 - Other specified abnormal findings of blood chemistry (5) Coronary arteriosclerosis Current visit: No Status: Chronic Category: Medical Code(s): I25.10 - Atherosclerotic heart disease of [place] coronary artery without angina pectoris (6) Edema Current visit: Yes Status: Acute Category: Medical Code(s): R60.9 - Edema, unspecified (7) Ex-smoker Current visit: No Status: Chronic Category: Social Hx Code(s): Z87.891 - Personal history of nicotine dependence (8) Nodular silicosis Current visit: No Status: Chronic Category: Medical Code(s): J62.8 - Pneumoconiosis due to other dust containing silica (9) Stented coronary artery Current visit: No Status: Chronic Category: Surgical Code(s): Z95.5 - Presence of coronary angioplasty implant and graft
[2019-03-15 10:07] LABS: Basophils % 0.2 % (0.1-2.0); Eosinophils % 0.1 % (0.1-12.0); Hematocrit 28.4 % (42.0-52.0); Lymphocytes # 0.2 K/mm3 (0.7-4.5); Lymphocytes % 5.5 % (10-50); Mean Corpuscular HGB Conc 29.9 g/dL (31.8-35.4); Mean Corpuscular Volume 91.4 fl (80-94); Mean Platelet Volume 8.1 fl (7.4-10.4); Monocytes # 0.1 K/mm3 (0.1-1.0); Monocytes % 1.8 % (1.7-9.3); Neutrophils # 3.4 K/mm3 (1.8-7.8); Neutrophils % 92.3 % (37.0-80.0); Platelet Count 402 K/mm3 (142-424); Red Blood Count 3.11 M/mm3 (4.60-6.20); Red Cell Distribution Width 15.8 % (11.5-17.5); White Blood Count 3.7 K/mm3 (4.8-10.8)
[2019-03-15 10:16] LABS: Albumin Level 2.7 gm/dL (3.4-5.0); Albumin/Globulin Ratio 0.8 (1.1-1.8); Anion Gap 15.3 mEq/L (5-15); Bilirubin,Total 0.2 mg/dL (0.2-1.0); Calcium 8.3 mg/dL (8.5-10.1); Globulin 3.4 gm/dl (1.3-3.2); Total Protein,Serum 6.1 gm/dL (6.4-8.2)
[2019-03-15 10:57] LABS: Hemoglobin 8.5 g/dL (14.1-18.0)
[2019-03-15 11:51] LABS: ABG HCO3 25.5 mmhg (22.0-26.0); ABG Oxygen Saturation 97 % (90-100); ABG PCO2 40.4 mmhg (35.0-45.0); ABG PH 7.42 mmol/L (7.35-7.45); ABG PO2 99.4 mmhg (80-100); ABG TCO2 26.7 mmhg (23-27)
[2019-03-15 11:52] LABS: Allen's Test Acceptable; Oxygen 28% %
[2019-03-15 12:52] LABS: Lymphocytes % 9 % (10-50); Monocytes % 2 % (2-9); Neutrophils % 89 % (42-76); RBC Morphology Normal; Total Cells Counted 100
--- NOTE | 2019-03-15 18:36 | Electrocardiograph Report ---
APPROVED REPORT Exam: Resting ECG HR:90 bpm ECG Measurements Heart Rate [address] 144 P 85 QRSd 88 QRS 83 QT 382 T85 QTc 467 <Conclusion> Normal sinus rhythm Incomplete RBBB Abnormal ECG Electronically signed by : Everett Martinez, 03/15/2019 18:35:48
--- NOTE | 2019-03-15 18:38 | Electrocardiograph Report ---
APPROVED REPORT Exam: Resting ECG HR:93 bpm ECG Measurements Heart Rate 93 AXES [place] 136 P 83 QRSd 80 QRS 84 QT 368 T168 QTc 457 <Conclusion> Normal sinus rhythm Incomplete RBBB,Motion Artifact Abnormal ECG Electronically signed by : Everett Martinez, 03/15/2019 18:37:29
--- NOTE | 2019-03-16 08:48 | Progress Note ---
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 He is followed at [facility]. He was last seen in November and will be seen again in May. A lung transplant has been discussed. Exam Vital signs and Labs for Last 24 Hours: Temp Pulse Resp BP Pulse Ox 98.6 F 114 H 22 94/52 L 94 L 03/16/19 07:42 03/16/19 07:42 03/16/19 07:42 03/16/19 07:42 03/16/19 07:42 Laboratory Results - last 24 hr 03/15/19 09:54: WBC 3.7 L D, RBC 3.11 L, Hgb 8.5 L D, Hct 28.4 L, MCV 91.4, MCH 27.3, MCHC 29.9 L, RDW 15.8, Plt Count 402, MPV 8.1, Neut % (Auto) 92.3 H, Lymph % (Auto) 5.5 L, [place] % (Auto) 1.8, Eos % (Auto) 0.1, Baso % (Auto) 0.2, Neut # (Auto) 3.4, Lymph # (Auto) 0.2 L, [place] # (Auto) 0.1, Eos # (Auto) 0.0, Baso # (Auto) 0.0, Total Counted 100, Neutrophils % (Manual) 89 H, Lymphocytes % (Manual) 9 L, Monocytes % (Manual) 2, Platelet Estimate Normal, RBC Morphology Normal 03/15/19 09:54: Sodium 139, Potassium 4.3, Chloride 102, Carbon Dioxide 26, Anion Gap 15.3 H, BUN 20 H, Creatinine 0.85, Estimated Creat Clear 55, Estimated GFR 91, Est GFR ( Amer) 111, Glucose 170 H D, Calcium 8.3 L, Total Bilirubin 0.2, AST 16, ALT 23, Alkaline Phosphatase 68, Total Protein 6.1 L, Albumin 2.7 L D, Globulin 3.4 H, Albumin/Globulin Ratio 0.8 L 03/15/19 11:12: Specimen Source Right radial, O2 % 28%, ABG pH 7.42, ABG pCO2 40.4, ABG pO2 99.4, ABG HCO3 25.5, ABG Total CO2 26.7, ABG O2 Saturation 97, ABG Base Excess 1.0, Carson Test Acceptable I & O for Last 24 hours: Intake & Output 03/13/19 03/14/19 03/15/19 03/16/19 11:59 11:59 11:59 11:59 Intake Total 928 / 928 2245 / 2245 Output Total 625 / 625 1600 / 1600 Balance 303 / 303 645 / 645 Weight 112 lb 1 oz 112 lb 1.011 oz - Constitutional no acute distress (But still short of breath with conversation.) - *Routine Respiratory Exam Present: decreased breath sounds, wheezes (Some) - *Routine Cardiovascular Exam Present: RRR - *Routine Abdominal Exam Present: soft. Absent: tenderness - *Routine Extremities Exam Present: edema (Still with edema. Perhaps less. 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 Category: Medical Code(s): J62.8 - Pneumoconiosis due to other dust containing silica (3) Pneumonia Current visit: Yes Status: Acute Qualifiers: Pneumonia type: due to unspecified organism Laterality: left Lung location: lower lobe of lung Qualified Code(s): J18.9 - Pneumonia, unspecified organism Category: Medical Code(s): J18.9 - Pneumonia, unspecified organism (4) Abnormal EKG Current visit: Yes Status: Acute Category: Medical Code(s): R94.31 - Abnormal electrocardiogram [ECG] [EKG] (5) Elevated troponin Current visit: Yes Status: Acute Category: Medical Code(s): R79.89 - Other specified abnormal findings of blood chemistry (6) Coronary arteriosclerosis Current visit: No Status: Chronic Category: Medical Code(s): I25.10 - Atherosclerotic heart disease of [place] coronary artery without angina pectoris (7) Edema Current visit: Yes Status: Acute Category: Medical Code(s): R60.9 - Edema, unspecified (8) Ex-smoker Current visit: No Status: Chronic Category: Social Hx Code(s): Z87.891 - Personal history of nicotine dependence (9) Stented coronary artery Current visit: No Status: Chronic Category: Surgical Code(s): Z95.5 - Presence of coronary angioplasty implant and graft - Assessment and plan all Dx Assessment and Plan for all problems:: We will continue present regimen. We need consultation with his pulmonary isabel simmons.
[2019-03-16 09:29] LABS: Anion Gap 14.1 mEq/L (5-15); Calcium 8.7 mg/dL (8.5-10.1)
[2019-03-16 09:30] LABS: Basophils % 0.1 % (0.1-2.0); Hematocrit 31.3 % (42.0-52.0); Hemoglobin 9.3 g/dL (14.1-18.0); Lymphocytes # 0.3 K/mm3 (0.7-4.5); Lymphocytes % 2.9 % (10-50); Mean Corpuscular HGB Conc 29.9 g/dL (31.8-35.4); Mean Corpuscular Volume 93.2 fl (80-94); Mean Platelet Volume 7.9 fl (7.4-10.4); Monocytes # 0.3 K/mm3 (0.1-1.0); Monocytes % 3.1 % (1.7-9.3); Neutrophils # 9.5 K/mm3 (1.8-7.8); Neutrophils % 93.9 % (37.0-80.0); Platelet Count 514 K/mm3 (142-424); Red Blood Count 3.36 M/mm3 (4.60-6.20); Red Cell Distribution Width 16.5 % (11.5-17.5); White Blood Count 10.1 K/mm3 (4.8-10.8)
[2019-03-16 09:50] LABS: Lymphocytes % 2 % (10-50); Monocytes % 3 % (2-9); Neutrophils % 95 % (42-76); Total Cells Counted 100
[2019-03-17 05:44] LABS: Eosinophils % 0.1 % (0.1-12.0); Hematocrit 29.9 % (42.0-52.0); Hemoglobin 8.8 g/dL (14.1-18.0); Lymphocytes # 0.3 K/mm3 (0.7-4.5); Lymphocytes % 3.9 % (10-50); Mean Corpuscular HGB Conc 29.3 g/dL (31.8-35.4); Mean Corpuscular Volume 94.2 fl (80-94); Mean Platelet Volume 8.7 fl (7.4-10.4); Monocytes # 0.3 K/mm3 (0.1-1.0); Monocytes % 4.3 % (1.7-9.3); Neutrophils # 6.4 K/mm3 (1.8-7.8); Neutrophils % 91.6 % (37.0-80.0); Platelet Count 463 K/mm3 (142-424); Red Blood Count 3.17 M/mm3 (4.60-6.20); Red Cell Distribution Width 16.3 % (11.5-17.5)
[2019-03-17 05:53] LABS: Anion Gap 11.3 mEq/L (5-15); Calcium 8.6 mg/dL (8.5-10.1)
[2019-03-17 05:58] LABS: Hypochromasia 1+; Lymphocytes % 5 % (10-50); Macrocytosis 1+; Neutrophils % 92 % (42-76); Rouleaux 1+; Total Cells Counted 100
--- NOTE | 2019-03-17 06:16 | Cardiology Report ---
APPROVED REPORT EXAM: Comprehensive 2D, Doppler, and color-flow Echocardiogram Tobacco Conditioner: Haylee Jorge RVT Ht: 5 ft 9 in Wt: 112lbs BSA: 1.61 BP: 99/73 mmHg Indications: COPD, Shortness of Breath, Palpitations, Hyperlipidemia, Hypertension,Silicosis,Pneumonia,CAD 2D Dimensions LVOT 1.65 cm (M/F) 1.5-2.5 M-Mode Dimensions RVDd 2.12 cm (0.9-2.6)LA Diam 2.70 cm (1.9-4.0) LVDd 4.08 cm (3.5-5.7)Ao Diam 1.70 cm (2.0-3.7) LVDs 1.97 cm (3.5-5.7)AV Cusp 1.40 cm (1.5-2.6) IVSd 0.45 cm (0.6-1.1)PWd 0.52 cm (0.6-1.1) EF (Teich) 83.40% FS 51.70% EDV (Teich) 73.40 mLESV (Teich) 12.20 mL LV Diastology E/A Ratio 0.71 Mitral Valve MV A Velocity 73.00 (40-130 cm/s) Left Ventricle Left atrium is mildly enlarged, left ventricle is normal size, mild concentric left ventricular hypertrophy, visually estimated ejection fraction of 55% with no regional wall motion abnormality, there is flattening of the intraventricular septum during systole and diastole consistent with pressure and volume overload on right ventricle. Grade 1 diastolic dysfunction seen without tissue Doppler evidence of raise left atrial pressure. Right Ventricle Right atrium and right ventricular moderately large, contractility of the right ventricle is moderately reduced. Aortic Valve Aortic valve is thickened and calcified leaflet continue to display mobility. There is no aortic stenosis or aortic insufficiency. Mitral Valve Mitral valve leaflets are minimally thickened, there is no mitral stenosis, there is mild mitral regurgitation. Tricuspid Valve Tricuspid valve leaflets are minimally thickened., There is no tricuspid stenosis, there is severe tricuspid regurgitation, calculated right ventricular systolic pressure approximately 75 mmHg consistent with severely elevated right ventricular systolic pressure. Inferior vena cava is mildly dilated with mild inspiratory collapse. Pulmonic Valve Pulmonic valve is poorly visualized. Great Vessels Aortic root is normal size. Pericardium No significant pericardial effusion noted. Conclusion 1. Normal left ventricular size, mild concentric left ventricular hypertrophy, visually estimated ejection fraction 55% with no regional wall motion abnormality, there is flattening of the intraventricular septum both in systole and diastole consistent with pressure and volume overload on right ventricle. Grade 1 diastolic dysfunction seen without tissue Doppler evidence of raise left atrial pressure. 2. Moderately enlarged right ventricle with moderate reduction left ventricular systolic function. 3. Mild mitral and severe tricuspid regurgitation, calculated right ventricular systolic pressure is 75 mmHg consistent with severely elevated right ventricular systolic pressure. 4. No significant pericardial effusion noted, inferior vena cava is mildly dilated with mild inspiratory collapse. Electronically signed by : Eder Hutchison, 03/17/2019 06:16:08
--- NOTE | 2019-03-17 08:21 | Progress Note ---
<Loly Guerra - Last Filed: 03/17/19 08:17> Internal Medicine - PN: Subj *Date: 03/17/19 *Time: 08:17 Interval history: Per patient and : They state that he had a good day yesterday. He ambulated in the room. He did sleep some last night. Had a panic attack this morning when he could not produce sputum caught in his throat. He was able to alleviate the spell on his own. He denies chest pain. He feels he is eating better here than at home. Bowels are not moving regularly. He is voiding QS. He continues to have edema in his legs although he feels it is less. Would like home oxygen. Exam Vital signs and Labs for Last 24 Hours: Temp Pulse Resp BP Pulse Ox 97.9 F 121 H 19 100/56 L 93 L 03/17/19 08:00 03/17/19 08:00 03/17/19 08:00 03/17/19 08:00 03/17/19 08:00 Laboratory Results - last 24 hr 03/16/19 09:02: WBC 10.1 D, RBC 3.36 L, Hgb 9.3 L, Hct 31.3 L, MCV 93.2, MCH 27.8, MCHC 29.9 L, RDW 16.5, Plt Count 514 H D, MPV 7.9, Neut % (Auto) 93.9 H, Lymph % (Auto) 2.9 L, [place] % (Auto) 3.1, Eos % (Auto) 0.0 L, Baso % (Auto) 0.1, Neut # (Auto) 9.5 H, Lymph # (Auto) 0.3 L, [place] # (Auto) 0.3, Eos # (Auto) 0.0, Baso # (Auto) 0.0, Total Counted 100, Neutrophils % (Manual) 95 H, Lymphocytes % (Manual) 2 L, Monocytes % (Manual) 3, Platelet Estimate Moderate increase 03/16/19 09:02: Sodium 140, Potassium 4.1, Chloride 102, Carbon Dioxide 28, Anion Gap 14.1, BUN 24 H, Creatinine 1.03 D, Estimated Creat Clear 53, Estimated GFR 73, Est GFR ( Amer) 89, Glucose 162 H, Calcium 8.7 03/17/19 05:38: WBC 7.0 D, RBC 3.17 L, Hgb 8.8 L, Hct 29.9 L, MCV 94.2 H, MCH 27.6, MCHC 29.3 L, RDW 16.3, Plt Count 463 H, MPV 8.7, Neut % (Auto) 91.6 H, Lymph % (Auto) 3.9 L, [place] % (Auto) 4.3, Eos % (Auto) 0.1, Baso % (Auto) 0.0 L, Neut # (Auto) 6.4, Lymph # (Auto) 0.3 L, [place] # (Auto) 0.3, Eos # (Auto) 0.0, Baso # (Auto) 0.0, Total Counted 100, Neutrophils % (Manual) 92 H, Band Neutrophils % 3.0, Lymphocytes % (Manual) 5 L, Hypersegmented Neuts 1+, Platelet Estimate Slight increase, Hypochromasia 1+, Macrocytosis 1+, Rouleaux 1+ 03/17/19 05:38: Sodium 140, Potassium 4.3, Chloride 103, Carbon Dioxide 30, Anion Gap 11.3, BUN 25 H, Creatinine 0.82 D, Estimated Creat Clear 55, Estimated GFR 95, Est GFR ( Amer) 115 D, Glucose 124 H D, Calcium 8.6 I & O for Last 24 hours: Intake & Output 03/14/19 03/15/19 03/16/19 03/17/19 11:59 11:59 11:59 11:59 Intake Total 928 / 928 2245 / 2245 1260 / 1260 Output Total 625 / 625 2500 / 2500 770 / 770 Balance 303 / 303 -255 / -255 490 / 490 Weight 112 lb 1 oz 112 lb 1.011 oz 113 lb 1.977 oz - Constitutional no acute distress (Sitting on bedside after completing breakfast. Appears comfortable.), thin - *Routine Respiratory Exam Comments: Diminished breath sounds posteriorly. Few of breath sounds in right base. - *Routine Cardiovascular Exam Present: tachycardia (Monitor showing sinus rhythm 110-120) - *Routine Abdominal Exam Present: soft, normoactive bowel sounds. 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 Category: Medical Code(s): J62.8 - Pneumoconiosis due to other dust containing silica (3) Pneumonia Current visit: Yes Status: Acute Qualifiers: Pneumonia type: due to unspecified organism Laterality: left Lung location: lower lobe of lung Qualified Code(s): J18.9 - Pneumonia, unspecified organism Category: Medical Code(s): J18.9 - Pneumonia, unspecified organism (4) Abnormal EKG Current visit: Yes Status: Acute Category: Medical Code(s): R94.31 - Abnormal electrocardiogram [ECG] [EKG] (5) Elevated troponin Current visit: Yes Status: Acute Category: Medical Code(s): R79.89 - Other specified abnormal findings of blood chemistry (6) Coronary arteriosclerosis Current visit: No Status: Chronic Category: Medical Code(s): I25.10 - Atherosclerotic heart disease of [place] coronary artery without angina pectoris (7) Edema Current visit: Yes Status: Acute Category: Medical Code(s): R60.9 - Edema, unspecified (8) Ex-smoker Current visit: No Status: Chronic Category: Social Hx Code(s): Z87.891 - Personal history of nicotine dependence (9) Stented coronary artery Current visit: No Status: Chronic Category: Surgical Code(s): Z95.5 - Presence of coronary angioplasty implant and graft (10) Combined systolic and diastolic cardiac dysfunction Current visit: Yes Status: Acute Category: Medical Code(s): I51.89 - Other ill-defined heart diseases - Assessment and plan all Dx Assessment and Plan for all problems:: Weight is noted to be with 1 pound weight gain. Will increase Lasix to 40 mg daily. We will add MiraLAX. <Troy Valencia - Last Filed: 03/17/19 09:03> Internal Medicine - PN: Subj *Date: 03/17/19 *Time: 08:59 Exam Vital signs and Labs for Last 24 Hours: Temp Pulse Resp BP Pulse Ox 97.9 F 121 H 19 100/56 L 93 L 03/17/19 08:00 03/17/19 08:00 03/17/19 08:00 03/17/19 08:00 03/17/19 08:00 Laboratory Results - last 24 hr 03/16/19 09:02: WBC 10.1 D, RBC 3.36 L, Hgb 9.3 L, Hct 31.3 L, MCV 93.2, MCH 27.8, MCHC 29.9 L, RDW 16.5, Plt Count 514 H D, MPV 7.9, Neut % (Auto) 93.9 H, Lymph % (Auto) 2.9 L, [place] % (Auto) 3.1, Eos % (Auto) 0.0 L, Baso % (Auto) 0.1, Neut # (Auto) 9.5 H, Lymph # (Auto) 0.3 L, [place] # (Auto) 0.3, Eos # (Auto) 0.0, Baso # (Auto) 0.0, Total Counted 100, Neutrophils % (Manual) 95 H, Lymphocytes % (Manual) 2 L, Monocytes % (Manual) 3, Platelet Estimate Moderate increase 03/16/19 09:02: Sodium 140, Potassium 4.1, Chloride 102, Carbon Dioxide 28, Anion Gap 14.1, BUN 24 H, Creatinine 1.03 D, Estimated Creat Clear 53, Estimated GFR 73, Est GFR ( Amer) 89, Glucose 162 H, Calcium 8.7 03/17/19 05:38: WBC 7.0 D, RBC 3.17 L, Hgb 8.8 L, Hct 29.9 L, MCV 94.2 H, MCH 27.6, MCHC 29.3 L, RDW 16.3, Plt Count 463 H, MPV 8.7, Neut % (Auto) 91.6 H, Lymph % (Auto) 3.9 L, [place] % (Auto) 4.3, Eos % (Auto) 0.1, Baso % (Auto) 0.0 L, Neut # (Auto) 6.4, Lymph # (Auto) 0.3 L, [place] # (Auto) 0.3, Eos # (Auto) 0.0, Baso # (Auto) 0.0, Total Counted 100, Neutrophils % (Manual) 92 H, Band Neutrophils % 3.0, Lymphocytes % (Manual) 5 L, Hypersegmented Neuts 1+, Platelet Estimate Slight increase, Hypochromasia 1+, Macrocytosis 1+, Rouleaux 1+ 03/17/19 05:38: Sodium 140, Potassium 4.3, Chloride 103, Carbon Dioxide 30, Anion Gap 11.3, BUN 25 H, Creatinine 0.82 D, Estimated Creat Clear 55, Estimated GFR 95, Est GFR ( Amer) 115 D, Glucose 124 H D, Calcium 8.6 I & O for Last 24 hours: Intake & Output 03/14/19 03/15/19 03/16/19 03/17/19 23:59 23:59 23:59 23:59 Intake Total 240 / 240 2044 / 2044 1769 / 1769 380 / 380 Output Total 275 / 275 1150 / 1150 2070 / 214 400 / 400 Balance -35 / -35 894 / 894 -301 / -376 -20 / -20 Weight 113 lb 112 lb 1 oz 112 lb 1.011 oz 113 lb 1.977 oz Assessment and Plan (1) COPD exacerbation Current visit: No Status: Acute Category: Medical Code(s): J44.1 - Chronic obstructive pulmonary disease with (acute) exacerbation (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 Category: Medical Code(s): J62.8 - Pneumoconiosis due to other dust containing silica (3) Pneumonia Current visit: Yes Status: Acute Qualifiers: Pneumonia type: due to unspecified organism Laterality: left Lung location: lower lobe of lung Qualified Code(s): J18.9 - Pneumonia, unspecified organism Category: Medical Code(s): J18.9 - Pneumonia, unspecified organism (4) Abnormal EKG Current visit: Yes Status: Acute Category: Medical Code(s): R94.31 - Abnormal electrocardiogram [ECG] [EKG] (5) Elevated troponin Current visit: Yes Status: Acute Category: Medical Code(s): R79.89 - Other specified abnormal findings of blood chemistry (6) Coronary arteriosclerosis Current visit: No Status: Chronic Category: Medical Code(s): I25.10 - Atherosclerotic heart disease of [place] coronary artery without angina pectoris (7) Edema Current visit: Yes Status: Acute Category: Medical Code(s): R60.9 - Edema, unspecified (8) Ex-smoker Current visit: No Status: Chronic Category: Social Hx Code(s): Z87.891 - Personal history of nicotine dependence (9) Stented coronary artery Current visit: No Status: Chronic Category: Surgical Code(s): Z95.5 - Presence of coronary angioplasty implant and graft (10) Anemia Current visit: Yes Status: Acute Category: Medical Code(s): D64.9 - Anemia, unspecified (11) Tachycardia Current visit: Yes Status: Acute Category: Medical Code(s): R00.0 - Tachycardia, unspecified (12) Right ventricular (RV) hypertension Current visit: Yes Status: Acute Category: Medical Code(s): I11.9 - Hypertensive heart disease without heart failure (13) Right heart failure due to pulmonary hypertension Current visit: Yes Status: Acute Category: Medical Code(s): I27.29 - Other secondary pulmonary hypertension; I50.810 - Right heart failure, unspecified - Assessment and plan all Dx Assessment and Plan for all problems:: Saw patient. Plan to increase Lasix and add low dose Cardizem.
--- NOTE | 2019-03-17 09:04 | Progress Note ---
Subjective Date: 03/17/19 Time: 08:59 Principal diagnosis: SOA Interval history: 63 yo WM in room in NAD. Continues to have SOA but improved since admission Edema of legs improved Still with tachycardia on monitor Echo shows normal LVEF but with severe TR and pulmonary HTN with RVSP of 75 mm Hg Exam Vital signs and Labs for Last 24 Hours: Temp Pulse Resp BP Pulse Ox 97.9 F 121 H 19 100/56 L 93 L 03/17/19 08:00 03/17/19 08:00 03/17/19 08:00 03/17/19 08:00 03/17/19 08:00 Laboratory Results - last 24 hr 03/16/19 09:02: WBC 10.1 D, RBC 3.36 L, Hgb 9.3 L, Hct 31.3 L, MCV 93.2, MCH 27.8, MCHC 29.9 L, RDW 16.5, Plt Count 514 H D, MPV 7.9, Neut % (Auto) 93.9 H, Lymph % (Auto) 2.9 L, [place] % (Auto) 3.1, Eos % (Auto) 0.0 L, Baso % (Auto) 0.1, Neut # (Auto) 9.5 H, Lymph # (Auto) 0.3 L, [place] # (Auto) 0.3, Eos # (Auto) 0.0, Baso # (Auto) 0.0, Total Counted 100, Neutrophils % (Manual) 95 H, Lymphocytes % (Manual) 2 L, Monocytes % (Manual) 3, Platelet Estimate Moderate increase 03/16/19 09:02: Sodium 140, Potassium 4.1, Chloride 102, Carbon Dioxide 28, Anion Gap 14.1, BUN 24 H, Creatinine 1.03 D, Estimated Creat Clear 53, Estimated GFR 73, Est GFR ( Amer) 89, Glucose 162 H, Calcium 8.7 03/17/19 05:38: WBC 7.0 D, RBC 3.17 L, Hgb 8.8 L, Hct 29.9 L, MCV 94.2 H, MCH 27.6, MCHC 29.3 L, RDW 16.3, Plt Count 463 H, MPV 8.7, Neut % (Auto) 91.6 H, Lymph % (Auto) 3.9 L, [place] % (Auto) 4.3, Eos % (Auto) 0.1, Baso % (Auto) 0.0 L, Neut # (Auto) 6.4, Lymph # (Auto) 0.3 L, [place] # (Auto) 0.3, Eos # (Auto) 0.0, Baso # (Auto) 0.0, Total Counted 100, Neutrophils % (Manual) 92 H, Band Neutrophils % 3.0, Lymphocytes % (Manual) 5 L, Hypersegmented Neuts 1+, Platelet Estimate Slight increase, Hypochromasia 1+, Macrocytosis 1+, Rouleaux 1+ 03/17/19 05:38: Sodium 140, Potassium 4.3, Chloride 103, Carbon Dioxide 30, Anion Gap 11.3, BUN 25 H, Creatinine 0.82 D, Estimated Creat Clear 55, Estimated GFR 95, Est GFR ( Amer) 115 D, Glucose 124 H D, Calcium 8.6 I & O for Last 24 hours: Intake & Output 03/14/19 03/15/19 03/16/19 03/17/19 11:59 11:59 11:59 11:59 Intake Total 928 / 928 2245 / 2245 1260 / 1260 Output Total 625 / 625 2500 / 2500 770 / 770 Balance 303 / 303 -255 / -255 490 / 490 Weight 112 lb 1 oz 112 lb 1.011 oz 113 lb 1.977 oz - *Routine Respiratory Exam Present: rhonchi, diminished air movement. Absent: accessory muscle use, rales, wheezes - *Routine Cardiovascular Exam Present: tachycardia. Absent: murmur, gallop, rubs - *Routine Extremities Exam Present: edema. Absent: calf tenderness - *Routine Neurological Exam Present: alert, oriented X3, moving all extremities Progress Note: A&P (1) COPD exacerbation Status: Acute Current Visit: No (2) Nodular silicosis Status: Chronic Current Visit: No (3) Pneumonia Status: Acute Current Visit: Yes (4) Abnormal EKG Status: Acute Current Visit: Yes (5) Elevated troponin Status: Acute Current Visit: Yes (6) Coronary arteriosclerosis Status: Chronic Current Visit: No (7) Edema Status: Acute Current Visit: Yes (8) Ex-smoker Status: Chronic Current Visit: No (9) Stented coronary artery Status: Chronic Current Visit: No Assessment and Plan for All Diagnoses:: 1. Pt to get additional lasix today for continued edema in setting of right heart failure due to severe pulmonary HTN, likely approaching end stage. 2. Tachycardia, multifactorial including Right heart failure and anemia. Pt to get low dose cardizem trial to help control.
--- NOTE | 2019-03-18 07:48 | Progress Note ---
Subjective Date: 03/18/19 Time: 07:45 Principal diagnosis: SOA Interval history: 63 yo WM at bedside eating breakfast in NAD. Still with continued SOA, weakness and new orthostatic dizziness noted. Telemetry is sinus with rate less than 100 bpm on cardizem. SBP in the 90's. Exam Vital signs and Labs for Last 24 Hours: Temp Pulse Resp BP Pulse Ox 97.6 F 110 H 18 90/57 L 95 03/18/19 07:43 03/18/19 07:43 03/18/19 07:43 03/18/19 07:43 03/18/19 07:43 I & O for Last 24 hours: Intake & Output 03/15/19 03/16/19 03/17/19 03/18/19 11:59 11:59 11:59 11:59 Intake Total 928 / 928 2245 / 2245 1260 / 1260 1320 / 1320 Output Total 625 / 625 2500 / 2500 770 / 770 2125 / 2125 Balance 303 / 303 -255 / -255 490 / 490 -805 / -805 Weight 112 lb 1 oz 112 lb 1.011 oz 113 lb 1.977 oz 112 lb 3 oz - *Routine Respiratory Exam Present: decreased breath sounds. Absent: accessory muscle use, rales, rhonchi, wheezes - *Routine Cardiovascular Exam Present: RRR. Absent: murmur, gallop, rubs - *Routine Extremities Exam Present: edema. Absent: calf tenderness - *Routine Neurological Exam Present: alert, oriented X3, moving all extremities Progress Note: A&P (1) COPD exacerbation Status: Acute Current Visit: No (2) Nodular silicosis Status: Chronic Current Visit: No (3) Pneumonia Status: Acute Current Visit: Yes (4) Abnormal EKG Status: Acute Current Visit: Yes (5) Elevated troponin Status: Acute Current Visit: Yes (6) Coronary arteriosclerosis Status: Chronic Current Visit: No (7) Edema Status: Acute Current Visit: Yes (8) Ex-smoker Status: Chronic Current Visit: No (9) Stented coronary artery Status: Chronic Current Visit: No (10) Anemia Status: Acute Current Visit: Yes (11) Tachycardia Status: Acute Current Visit: Yes (12) Right ventricular (RV) hypertension Status: Acute Current Visit: Yes (13) Right heart failure due to pulmonary hypertension Status: Acute Current Visit: Yes Assessment and Plan for All Diagnoses:: 1. Orthostatic dizziness likely due to low BP on low dose cardizem. Hold this AM to see if BP/symptoms improve. 2. CAD/Cardiac status stable. Elevated troponins related to pulmonary distress. Tachycardia related to pulmonary issues. Echo shows normal LVEF. Continue DAPT for history of ANDREY placement in 2017. 3. Pulmonary HTN/Right heart failure/edema. Continue lasix 4. Anemia stable.
--- NOTE | 2019-03-18 08:12 | Progress Note ---
<Loly Guerra - Last Filed: 03/18/19 08:07> Internal Medicine - PN: Subj *Date: 03/18/19 *Time: 08:07 Interval history: Had a satisfactory day yesterday; has had a few anxiety spells to include one this AM; eating well; bowels did move yesterday;breathing is about the same; has had some dizziness with lower SBP; increased UOP; did sleep until about 3 AM Exam Vital signs and Labs for Last 24 Hours: Temp Pulse Resp BP Pulse Ox 97.6 F 110 H 18 90/57 L 95 03/18/19 07:43 03/18/19 07:43 03/18/19 07:43 03/18/19 07:43 03/18/19 07:43 I & O for Last 24 hours: Intake & Output 03/15/19 03/16/19 03/17/19 03/18/19 11:59 11:59 11:59 11:59 Intake Total 928 / 928 2245 / 2245 1260 / 1260 1320 / 1320 Output Total 625 / 625 2500 / 2500 770 / 770 2125 / 2125 Balance 303 / 303 -255 / -255 490 / 490 -805 / -805 Weight 112 lb 1 oz 112 lb 1.011 oz 113 lb 1.977 oz 112 lb 3 oz - Constitutional no acute distress Comments: sitting on bedside; has completed breakfast; appears comfortable - *Routine Respiratory Exam Comments: decreased BS on the right - *Routine Cardiovascular Exam Present: RRR, tachycardia (110) - *Routine Abdominal Exam Present: soft, normoactive bowel sounds. 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 Category: Medical Code(s): J62.8 - Pneumoconiosis due to other dust containing silica (3) Pneumonia Current visit: Yes Status: Acute Qualifiers: Pneumonia type: due to unspecified organism Laterality: left Lung location: lower lobe of lung Qualified Code(s): J18.9 - Pneumonia, unspecified organism Category: Medical Code(s): J18.9 - Pneumonia, unspecified organism (4) Abnormal EKG Current visit: Yes Status: Acute Category: Medical Code(s): R94.31 - Abnormal electrocardiogram [ECG] [EKG] (5) Elevated troponin Current visit: Yes Status: Acute Category: Medical Code(s): R79.89 - Other specified abnormal findings of blood chemistry (6) Coronary arteriosclerosis Current visit: No Status: Chronic Category: Medical Code(s): I25.10 - Atherosclerotic heart disease of [place] coronary artery without angina pectoris (7) Edema Current visit: Yes Status: Acute Category: Medical Code(s): R60.9 - Edema, unspecified (8) Ex-smoker Current visit: No Status: Chronic Category: Social Hx Code(s): Z87.891 - Personal history of nicotine dependence (9) Stented coronary artery Current visit: No Status: Chronic Category: Surgical Code(s): Z95.5 - Presence of coronary angioplasty implant and graft (10) Anemia Current visit: Yes Status: Acute Category: Medical Code(s): D64.9 - Anemia, unspecified (11) Tachycardia Current visit: Yes Status: Acute Category: Medical Code(s): R00.0 - Tachycardia, unspecified (12) Right ventricular (RV) hypertension Current visit: Yes Status: Acute Category: Medical Code(s): I11.9 - Hypertensive heart disease without heart failure (13) Right heart failure due to pulmonary hypertension Current visit: Yes Status: Acute Category: Medical Code(s): I27.29 - Other secondary pulmonary hypertension; I50.810 - Right heart failure, unspecified (14) Underweight Current visit: Yes Status: Acute Category: Medical Code(s): R63.6 - Underweight - Assessment and plan all Dx Assessment and Plan for all problems:: will disc Cardizem and continue with monitoring HR and BP; continue with diuresis; labs ordered for the AM <Troy Valencia - Last Filed: 03/18/19 08:20> Internal Medicine - PN: Subj *Date: 03/18/19 *Time: 08:18 Exam Vital signs and Labs for Last 24 Hours: Temp Pulse Resp BP Pulse Ox 97.6 F 110 H 18 90/57 L 95 03/18/19 07:43 03/18/19 07:43 03/18/19 07:43 03/18/19 07:43 03/18/19 07:43 I & O for Last 24 hours: Intake & Output 03/15/19 03/16/19 03/17/19 03/18/19 23:59 23:59 23:59 23:59 Intake Total 2043 1769 / 1769 1220 / 1220 480 / 480 Output Total 1150 / 1150 2069 / 2144 1949 / 2049 575 / 575 Balance 894 / 894 -301 / -376 -730 / -830 -95 / -95 Weight 112 lb 1 oz 112 lb 1.011 oz 113 lb 1.977 oz 112 lb 3 oz Assessment and Plan (1) COPD exacerbation Current visit: No Status: Acute Category: Medical Code(s): J44.1 - Chronic obstructive pulmonary disease with (acute) exacerbation (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 Category: Medical Code(s): J62.8 - Pneumoconiosis due to other dust containing silica (3) Pneumonia Current visit: Yes Status: Acute Qualifiers: Pneumonia type: due to unspecified organism Laterality: left Lung location: lower lobe of lung Qualified Code(s): J18.9 - Pneumonia, unspecified organism Category: Medical Code(s): J18.9 - Pneumonia, unspecified organism (4) Abnormal EKG Current visit: Yes Status: Acute Category: Medical Code(s): R94.31 - Abnormal electrocardiogram [ECG] [EKG] (5) Elevated troponin Current visit: Yes Status: Acute Category: Medical Code(s): R79.89 - Other specified abnormal findings of blood chemistry (6) Coronary arteriosclerosis Current visit: No Status: Chronic Category: Medical Code(s): I25.10 - Atherosclerotic heart disease of [place] coronary artery without angina pectoris (7) Edema Current visit: Yes Status: Acute Category: Medical Code(s): R60.9 - Edema, unspecified (8) Ex-smoker Current visit: No Status: Chronic Category: Social Hx Code(s): Z87.891 - Personal history of nicotine dependence (9) Stented coronary artery Current visit: No Status: Chronic Category: Surgical Code(s): Z95.5 - Presence of coronary angioplasty implant and graft (10) Anemia Current visit: Yes Status: Acute Category: Medical Code(s): D64.9 - Anemia, unspecified (11) Tachycardia Current visit: Yes Status: Acute Category: Medical Code(s): R00.0 - Tachycardia, unspecified (12) Right ventricular (RV) hypertension Current visit: Yes Status: Acute Category: Medical Code(s): I11.9 - Hypertensive heart disease without heart failure (13) Right heart failure due to pulmonary hypertension Current visit: Yes Status: Acute Category: Medical Code(s): I27.29 - Other secondary pulmonary hypertension; I50.810 - Right heart failure, unspecified (14) Underweight Current visit: Yes Status: Acute Category: Medical Code(s): R63.6 - Underweight - Assessment and plan all Dx Assessment and Plan for all problems:: Saw patient, agree with above note. Stop Cardizem today, continue Lasix. BMI 16.6. Need to ambulate with pulse ox today to evaluate need for supplemental oxygen.
--- NOTE | 2019-03-18 10:48 | Progress Note ---
Internal Medicine - PN: Subj *Date: 03/18/19 *Time: 10:46 Exam Vital signs and Labs for Last 24 Hours: Temp Pulse Resp BP Pulse Ox 97.6 F 104 H 18 90/57 L 95 03/18/19 07:43 03/18/19 10:25 03/18/19 07:43 03/18/19 07:43 03/18/19 10:25 I & O for Last 24 hours: Intake & Output 03/15/19 03/16/19 03/17/19 03/18/19 23:59 23:59 23:59 23:59 Intake Total 2043 / 2043 1769 / 1769 1220 / 1220 480 / 480 Output Total 1150 / 1150 2069 / 2144 1949 / 2049 575 / 575 Balance 894 / 894 -301 / -376 -730 / -830 -95 / -95 Weight 50.831 kg 50.831 kg 51.312 kg 50.887 kg Assessment and Plan (1) COPD exacerbation Current visit: No Status: Acute Category: Medical Code(s): J44.1 - Chronic obstructive pulmonary disease with (acute) exacerbation (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 Category: Medical Code(s): J62.8 - Pneumoconiosis due to other dust containing silica (3) Pneumonia Current visit: Yes Status: Acute Qualifiers: Pneumonia type: due to unspecified organism Laterality: left Lung location: lower lobe of lung Qualified Code(s): J18.9 - Pneumonia, unspecified organism Category: Medical Code(s): J18.9 - Pneumonia, unspecified organism (4) Abnormal EKG Current visit: Yes Status: Acute Category: Medical Code(s): R94.31 - Abnormal electrocardiogram [ECG] [EKG] (5) Elevated troponin Current visit: Yes Status: Acute Category: Medical Code(s): R79.89 - Other specified abnormal findings of blood chemistry (6) Coronary arteriosclerosis Current visit: No Status: Chronic Category: Medical Code(s): I25.10 - Atherosclerotic heart disease of [place] coronary artery without angina pectoris (7) Edema Current visit: Yes Status: Acute Category: Medical Code(s): R60.9 - Edema, unspecified (8) Ex-smoker Current visit: No Status: Chronic Category: Social Hx Code(s): Z87.891 - Personal history of nicotine dependence (9) Stented coronary artery Current visit: No Status: Chronic Category: Surgical Code(s): Z95.5 - Presence of coronary angioplasty implant and graft (10) Anemia Current visit: Yes Status: Acute Category: Medical Code(s): D64.9 - Anemia, unspecified (11) Tachycardia Current visit: Yes Status: Acute Category: Medical Code(s): R00.0 - Tachycardia, unspecified (12) Right ventricular (RV) hypertension Current visit: Yes Status: Acute Category: Medical Code(s): I11.9 - Hypertensive heart disease without heart failure (13) Right heart failure due to pulmonary hypertension Current visit: Yes Status: Acute Category: Medical Code(s): I27.29 - Other secondary pulmonary hypertension; I50.810 - Right heart failure, unspecified (14) Underweight Current visit: Yes Status: Acute Category: Medical Code(s): R63.6 - Underweight The patient's infection will respond to the chosen ABx?: Yes Is the patient receiving the right drug, dose, and route?: Yes Could a more targeted ABx be ordered?: No (WBC WNL, AFEBRILE)
[2019-03-19 06:13] LABS: Basophils % 0.1 % (0.1-2.0); Hematocrit 28.2 % (42.0-52.0); Hemoglobin 8.3 g/dL (14.1-18.0); Lymphocytes # 0.2 K/mm3 (0.7-4.5); Lymphocytes % 3.6 % (10-50); Mean Corpuscular HGB Conc 29.5 g/dL (31.8-35.4); Mean Corpuscular Volume 92.9 fl (80-94); Mean Platelet Volume 7.9 fl (7.4-10.4); Monocytes # 0.2 K/mm3 (0.1-1.0); Monocytes % 4.7 % (1.7-9.3); Neutrophils # 4.4 K/mm3 (1.8-7.8); Neutrophils % 91.5 % (37.0-80.0); Platelet Count 510 K/mm3 (142-424); Red Blood Count 3.03 M/mm3 (4.60-6.20); Red Cell Distribution Width 15.8 % (11.5-17.5); White Blood Count 4.8 K/mm3 (4.8-10.8)
[2019-03-19 06:26] LABS: Anion Gap 10.3 mEq/L (5-15); Calcium 8.3 mg/dL (8.5-10.1)
[2019-03-19 07:56] LABS: Hypochromasia 1+; Lymphocytes % 4 % (10-50); Monocytes % 4 % (2-9); Neutrophils % 92 % (42-76); Total Cells Counted 100
[2019-03-19 07:57] LABS: Helmet Cells 1+
--- NOTE | 2019-03-19 08:17 | Progress Note ---
<Charo Marino - Last Filed: 03/19/19 08:13> Internal Medicine - PN: Subj *Date: 03/19/19 *Time: 08:14 Interval history: Patient states he had a few episodes during the night where he got short of breath. He states he is unable to cough up any sputum and he requests some Mucinex today which she takes at home. He still has some swelling in his legs but it has improved since yesterday. He did qualify for home oxygen yesterday. He is anxious to go home today. Exam Vital signs and Labs for Last 24 Hours: Temp Pulse Resp BP Pulse Ox 97.6 F 84 18 114/72 98 03/19/19 04:00 03/19/19 05:52 03/19/19 04:00 03/19/19 04:00 03/19/19 05:52 Laboratory Results - last 24 hr 03/19/19 05:47: WBC 4.8 D, RBC 3.03 L, Hgb 8.3 L, Hct 28.2 L, MCV 92.9, MCH 27.4, MCHC 29.5 L, RDW 15.8, Plt Count 510 H, MPV 7.9, Neut % (Auto) 91.5 H, Lymph % (Auto) 3.6 L, [facility] % (Auto) 4.7, Eos % (Auto) 0.0 L, Baso % (Auto) 0.1, Neut # (Auto) 4.4, Lymph # (Auto) 0.2 L, [facility] # (Auto) 0.2, Eos # (Auto) 0.0, Baso # (Auto) 0.0, Total Counted 100, Neutrophils % (Manual) 92 H, Lymphocytes % (Manual) 4 L, Monocytes % (Manual) 4, Platelet Estimate Marked increase, Hypochromasia 1+, Poikilocytosis 2+, Anisocytosis Kinesiologist, Helmet Cells 1+, Schistocytes 1+ 03/19/19 05:47: Sodium 140, Potassium 4.3, Chloride 102, Carbon Dioxide 32, Anion Gap 10.3, BUN 30 H, Creatinine 0.73, Estimated Creat Clear 56, Estimated GFR 109, Est GFR ( Amer) 132, Glucose 130 H, Calcium 8.3 L I & O for Last 24 hours: Intake & Output 03/16/19 03/17/19 03/18/19 11/13/19 11:59 11:59 11:59 11:59 Intake Total 2245 / 2245 1260 / 1260 1320 / 1320 1010 / 1010 Output Total 2500 / 2500 770 / 770 2125 / 2125 1750 / 1750 Balance -255 / -255 490 / 490 -805 / -805 -740 / -740 Weight 112 lb 1.011 oz 113 lb 1.977 oz 112 lb 3 oz 113 lb 6 oz - Constitutional no acute distress - *Routine Respiratory Exam Present: decreased breath sounds. Absent: wheezes, crackles - *Routine Cardiovascular Exam Present: RRR - *Routine Abdominal Exam Present: soft, normoactive bowel sounds. Absent: tenderness - *Routine Extremities Exam Present: edema (bilateral LE's) - *Routine Skin Exam Present: warm. 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 Category: Medical Code(s): J62.8 - Pneumoconiosis due to other dust containing silica (3) Pneumonia Current visit: Yes Status: Acute Qualifiers: Pneumonia type: due to unspecified organism Laterality: left Lung location: lower lobe of lung Qualified Code(s): J18.9 - Pneumonia, unspecified organism Category: Medical Code(s): J18.9 - Pneumonia, unspecified organism (4) Abnormal EKG Current visit: Yes Status: Acute Category: Medical Code(s): R94.31 - Abnormal electrocardiogram [ECG] [EKG] (5) Elevated troponin Current visit: Yes Status: Acute Category: Medical Code(s): R79.89 - Other specified abnormal findings of blood chemistry (6) Coronary arteriosclerosis Current visit: No Status: Chronic Category: Medical Code(s): I25.10 - Atherosclerotic heart disease of [place] coronary artery without angina pectoris (7) Edema Current visit: Yes Status: Acute Category: Medical Code(s): R60.9 - Edema, unspecified (8) Ex-smoker Current visit: No Status: Chronic Category: Social Hx Code(s): Z87.891 - Personal history of nicotine dependence (9) Stented coronary artery Current visit: No Status: Chronic Category: Surgical Code(s): Z95.5 - Presence of coronary angioplasty implant and graft (10) Anemia Current visit: Yes Status: Acute Category: Medical Code(s): D64.9 - Anemia, unspecified (11) Tachycardia Current visit: Yes Status: Acute Category: Medical Code(s): R00.0 - Tachycardia, unspecified (12) Right ventricular (RV) hypertension Current visit: Yes Status: Acute Category: Medical Code(s): I11.9 - Hypertensive heart disease without heart failure (13) Right heart failure due to pulmonary hypertension Current visit: Yes Status: Acute Category: Medical Code(s): I27.29 - Other secondary pulmonary hypertension; I50.810 - Right heart failure, unspecified (14) Underweight Current visit: Yes Status: Acute Category: Medical Code(s): R63.6 - Underweight - Assessment and plan all Dx Assessment and Plan for all problems:: Blood pressure has improved. Hemoglobin is down to 8.3 today. Patient is feeling better and qualified for home oxygen. Possible discharge home today. Will discuss with Dr. Valencia. <Troy Valencia - Last Filed: 03/19/19 08:34> Internal Medicine - PN: Subj *Date: 03/19/19 *Time: 08:33 Exam Vital signs and Labs for Last 24 Hours: Temp Pulse Resp BP Pulse Ox 97.9 F 117 H 19 95/58 L 97 03/19/19 08:00 03/19/19 08:00 03/19/19 08:00 03/19/19 08:00 03/19/19 08:00 Laboratory Results - last 24 hr 03/19/19 05:47: WBC 4.8 D, RBC 3.03 L, Hgb 8.3 L, Hct 28.2 L, MCV 92.9, MCH 27.4, MCHC 29.5 L, RDW 15.8, Plt Count 510 H, MPV 7.9, Neut % (Auto) 91.5 H, Lymph % (Auto) 3.6 L, [facility] % (Auto) 4.7, Eos % (Auto) 0.0 L, Baso % (Auto) 0.1, Neut # (Auto) 4.4, Lymph # (Auto) 0.2 L, [facility] # (Auto) 0.2, Eos # (Auto) 0.0, Baso # (Auto) 0.0, Total Counted 100, Neutrophils % (Manual) 92 H, Lymphocytes % (Manual) 4 L, Monocytes % (Manual) 4, Platelet Estimate Marked increase, Hypochromasia 1+, Poikilocytosis 2+, Anisocytosis Kinesiologist, Helmet Cells 1+, [place]ne istocytes 1+ 03/19/19 05:47: Sodium 140, Potassium 4.3, Chloride 102, Carbon Dioxide 32, Anion Gap 10.3, BUN 30 H, Creatinine 0.73, Estimated Creat Clear 56, Estimated GFR 109, Est GFR ( Amer) 132, Glucose 130 H, Calcium 8.3 L I & O for Last 24 hours: Intake & Output 03/16/19 03/17/19 03/18/19 03/19/19 23:59 23:59 23:59 23:59 Intake Total 1769 / 1769 1220 / 1220 1490 / 1490 240 / 240 Output Total 2069 / 2144 1949 / 2049 1375 / 1375 950 / 950 Balance -301 / -376 -730 / -830 115 / 115 -710 / -710 Weight 112 lb 1.011 oz 113 lb 1.977 oz 112 lb 3 oz 113 lb 6 oz Assessment and Plan (1) COPD exacerbation Current visit: No Status: Acute Category: Medical Code(s): J44.1 - Chronic obstructive pulmonary disease with (acute) exacerbation (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 Category: Medical Code(s): J62.8 - Pneumoconiosis due to other dust containing silica (3) Pneumonia Current visit: Yes Status: Acute Qualifiers: Pneumonia type: due to unspecified organism Laterality: left Lung location: lower lobe of lung Qualified Code(s): J18.9 - Pneumonia, unspecified organism Category: Medical Code(s): J18.9 - Pneumonia, unspecified organism (4) Abnormal EKG Current visit: Yes Status: Acute Category: Medical Code(s): R94.31 - Abnormal electrocardiogram [ECG] [EKG] (5) Elevated troponin Current visit: Yes Status: Acute Category: Medical Code(s): R79.89 - Other specified abnormal findings of blood chemistry (6) Coronary arteriosclerosis Current visit: No Status: Chronic Category: Medical Code(s): I25.10 - Atherosclerotic heart disease of [place] coronary artery without angina pectoris (7) Edema Current visit: Yes Status: Acute Category: Medical Code(s): R60.9 - Edema, unspecified (8) Ex-smoker Current visit: No Status: Chronic Category: Social Hx Code(s): Z87.891 - Personal history of nicotine dependence (9) Stented coronary artery Current visit: No Status: Chronic Category: Surgical Code(s): Z95.5 - Presence of coronary angioplasty implant and graft (10) Anemia Current visit: Yes Status: Acute Category: Medical Code(s): D64.9 - Anemia , unspecified (11) Tachycardia Current visit: Yes Status: Acute Category: Medical Code(s): R00.0 - Tachycardia, unspecified (12) Right ventricular (RV) hypertension Current visit: Yes Status: Acute Category: Medical Code(s): I11.9 - Hypertensive heart disease without heart failure (13) Right heart failure due to pulmonary hypertension Current visit: Yes Status: Acute Category: Medical Code(s): I27.29 - Other secondary pulmonary hypertension; I50.810 - Right heart failure, unspecified (14) Underweight Current visit: Yes Status: Acute Category: Medical Code(s): R63.6 - Underweight - Assessment and plan all Dx Assessment and Plan for all problems:: Saw patient, agree with above note. OK for discharge today with supplemental oxygen and office f/u next week.
--- NOTE | 2019-03-19 09:49 | Progress Note ---
Subjective Date: 03/19/19 Time: 09:45 Principal diagnosis: SOA Interval history: The patient states that he is feeling much better today. He did have a few episodes of shortness of breath through the night and was unable to cough up any sputum but overall his shortness of breath has improved. He does have oxygen in place and he is going home today with oxygen as well. He does state the edema in his legs has improved. He states that he does have some edema still but it is much better. He denies any chest pain or pressure. He denies any fever, chills, nausea, vomiting, diarrhea, PND or orthopnea. The patient is scheduled for discharge home today. Exam Vital signs and Labs for Last 24 Hours: Temp Pulse Resp BP Pulse Ox 97.9 F 117 H 19 95/58 L 97 03/19/19 08:00 03/19/19 08:00 03/19/19 08:00 03/19/19 08:00 03/19/19 08:00 Laboratory Results - last 24 hr 03/19/19 05:47: WBC 4.8 D, RBC 3.03 L, Hgb 8.3 L, Hct 28.2 L, MCV 92.9, MCH 27.4, MCHC 29.5 L, RDW 15.8, Plt Count 510 H, MPV 7.9, Neut % (Auto) 91.5 H, Lymph % (Auto) 3.6 L, [place] % (Auto) 4.7, Eos % (Auto) 0.0 L, Baso % (Auto) 0.1, Neut # (Auto) 4.4, Lymph # (Auto) 0.2 L, [place] # (Auto) 0.2, Eos # (Auto) 0.0, Baso # (Auto) 0.0, Total Counted 100, Neutrophils % (Manual) 92 H, Lymphocytes % (Manual) 4 L, Monocytes % (Manual) 4, Platelet Estimate Marked increase, Hypochromasia 1+, Poikilocytosis 2+, Anisocytosis Clerk Telegraph Service, Helmet Cells 1+, Schistocytes 1+ 03/19/19 05:47: Sodium 140, Potassium 4.3, Chloride 102, Carbon Dioxide 32, Anion Gap 10.3, BUN 30 H, Creatinine 0.73, Estimated Creat Clear 56, Estimated GFR 109, Est GFR ( Amer) 132, Glucose 130 H, Calcium 8.3 L I & O for Last 24 hours: Intake & Output 03/16/19 03/17/19 03/18/19 03/19/19 23:59 23:59 23:59 23:59 Intake Total 1769 / 1769 1220 / 1220 1490 / 1490 240 / 240 Output Total 2069 / 2144 1949 / 2049 1375 / 1375 950 / 950 Balance -301 / -376 -730 / -830 115 / 115 -710 / -710 Weight 112 lb 1.011 oz 113 lb 1.977 oz 112 lb 3 oz 113 lb 6 oz Narrative: His telemetry strip is sinus rhythm with a rate of 103. - *Routine HEENT Exam Head: Present: normocephalic, atraumatic Eye: Present: EOMI, PERRL ENT: Present: mucous membranes moist - *Routine Neck Exam Present: supple, full ROM, normal carotid upstroke. Absent: JVD, carotid bruit, lymphadenopathy - *Routine Respiratory Exam Present: diminished air movement - *Routine Cardiovascular Exam Present: Normal S1, Normal S2, tachycardia. Absent: murmur - *Routine Abdominal Exam Present: soft, normoactive bowel sounds. Absent: tenderness, distended - *Routine Extremities Exam Present: edema (trace edema in BLEs), full ROM, pulses intact, normal capillary refill. Absent: cyanosis, clubbing - *Routine Skin Exam Present: intact, warm. Absent: erythema, rash - *Routine Neurological Exam Present: alert, oriented X3, CN II-XII intact. Absent: sensory deficit, motor deficit - Detailed Eye Exam Eyelids: Left normal inspection Progress Note: A&P (1) COPD exacerbation Status: Acute Current Visit: No (2) Nodular silicosis Status: Chronic Current Visit: No (3) Pneumonia Status: Acute Current Visit: Yes (4) Abnormal EKG Status: Acute Current Visit: Yes (5) Elevated troponin Status: Acute Current Visit: Yes (6) Coronary arteriosclerosis Status: Chronic Current Visit: No (7) Edema Status: Acute Current Visit: Yes (8) Ex-smoker Status: Chronic Current Visit: No (9) Stented coronary artery Status: Chronic Current Visit: No (10) Anemia Status: Acute Current Visit: Yes (11) Tachycardia Status: Acute Current Visit: Yes (12) Right ventricular (RV) hypertension Status: Acute Current Visit: Yes (13) Right heart failure due to pulmonary hypertension Status: Acute Current Visit: Yes (14) Underweight Status: Acute Current Visit: Yes Assessment and Plan for All Diagnoses:: Plan: 1. The patient was admitted to the hospital with shortness of breath. The patient has been treated for pneumonia and a COPD exacerbation. Will defer management of this to his primary care provider. 2. The patient did have an elevated troponin which is most likely consistent with demand ischemia. He does have a history of coronary artery disease. He denies any chest pain or pressure. No plans for invasive cardiac testing at this time. He may benefit from an outpatient ischemic evaluation once he is recovered from his pneumonia and COPD exacerbation. 3. The patient has been tachycardic. His heart rate is somewhat better today. He is on low-dose diltiazem at this time and tolerating it well. 4. His blood pressure is acceptable. 5. His LDL goal is less than 55. 6. COPD is present. His shortness of breath has improved. He is on continuous oxygen. He is going to go home on home oxygen as well. They are here today getting him set up for this. 7. The patient remains somewhat tachycardic today. But his heart rate is under little better control. His tachycardia is most likely from his severe pulmonary status. 8. The patient is stable for discharge home today from a cardiac standpoint. He will need to follow-up in 1 to 2 weeks on an outpatient basis. Thank you for the opportunity to help participate in the care of this patient.
--- NOTE | 2019-03-19 15:54 | Discharge Summary ---
General - General Admission date:: 03/14/19 Discharge date: 03/19/19 HPI HPI: Patient is a 63-year-old male who came into the ED after having trouble breathing. He has underlying lung disease, silicosis, for which he uses trelegy and Ventolin. He mentions that he has been using his Ventolin more than usual for the past few days. 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 He denies using any home oxygen. He denies having any fever, chills, nausea, vomiting, diarrhea at this time. He does have some nonproductive sputum that has been going on for the past 2 to 3 days. Denies having any chest pain or anginal symptoms now or in the past 30 days. He does get short of breath and is not able to do more than 10-20 steps. Hospital Course Hospital Course: The patient's chest x-ray showed COPD/emphysema with conglomerate masses with patchy infiltrate in the left lower lobe. The patient was admitted and started on IV antibiotics and steroids. His initial troponin was elevated, therefore cardiology was consulted and serial cardiac enzymes and an echo were ordered. He was seen in consultation by cardiology who felt that the patient's elevated troponin was secondary to cardiac strain related to his pneumonia on top of his compromised pulmonary status. They recommended serial enzymes and the echo. He did have significant lower extremity edema and was given Lasix. The patient's echo showed an EF of 55% but severe tricuspid regurgitation and pulmonary hypertension. Cardiology gave the patient additional Lasix in the setting of right heart failure due to severe pulmonary hypertension. His heart rate was elevated as well, therefore they started a low dose of Cardizem. His Lasix dose was increased and MiraLAX was added due to some constipation. His heart rate improved on the Cardizem but he had some orthostatic dizziness likely due to low blood pressure. The Cardizem was therefore discontinued. The patient did begin feeling better. He ambulated with a pulse ox in place and qualified for home supplemental oxygen. He was able to get up and ambulate to his room but did continue with episodes of severe shortness of breath. He was anxious to be discharged home and was stable to be discharged on supplemental oxygen. His leg edema improved and cardiology felt he would need to be continued on Lasix as well. He will follow-up with Dr. Valencia on 03/25/2019. Objective Vital signs: Temp Pulse Resp BP Pulse Ox 97.9 F 117 H 19 95/58 L 97 03/19/19 08:00 03/19/19 08:00 03/19/19 08:00 03/19/19 08:00 03/19/19 08:00 Narrative: - *Routine HEENT Exam Head: Present: normocephalic Eye: Present: EOMI, PERRL ENT: Present: mucous membranes moist - *Routine Neck Exam Present: supple. Absent: lymphadenopathy - *Routine Respiratory Exam Present: decreased breath sounds (Bilateral base). Absent: accessory muscle use, respiratory distress Comments: on 2 L of oxygen nasal cannula - *Routine Cardiovascular Exam Present: RRR - *Routine Abdominal Exam Present: soft, normoactive bowel sounds. Absent: tenderness - *Routine Extremities Exam Absent: cyanosis, clubbing, edema - *Routine Skin Exam Present: warm. Absent: rash - *Routine Neurological Exam Present: alert, oriented X3 Results Labs on day of discharge: Labs from last 24 hours 03/19/19 03/19/19 05:47 05:47 WBC 4.8 D RBC 3.03 L Hgb 8.3 L Hct 28.2 L MCV 92.9 MCH 27.4 MCHC 29.5 L RDW 15.8 Plt Count 510 H MPV 7.9 Neut % (Auto) 91.5 H Lymph % (Auto) 3.6 L [place] % (Auto) 4.7 Eos % (Auto) 0.0 L Baso % (Auto) 0.1 Neut # (Auto) 4.4 Lymph # (Auto) 0.2 L [place] # (Auto) 0.2 Eos # (Auto) 0.0 Baso # (Auto) 0.0 Total Counted 100 Neutrophils % (Manual) 92 H Lymphocytes % (Manual) 4 L Monocytes % (Manual) 4 Platelet Estimate Marked increase Hypochromasia 1+ Poikilocytosis 2+ Anisocytosis Manufacturing Leader Helmet Cells 1+ Schistocytes 1+ Sodium 140 Potassium 4.3 Chloride 102 Carbon Dioxide 32 Anion Gap 10.3 BUN 30 H Creatinine 0.73 Estimated Creat Clear 56 Estimated GFR 109 Est GFR ( Amer) 132 Glucose 130 H Calcium 8.3 L DS: Diagnosis - Discharge Diagnosis (1) COPD exacerbation Status: Acute (2) Nodular silicosis Status: Chronic (3) Pneumonia Status: Acute (4) Abnormal EKG Status: Acute (5) Elevated troponin Status: Acute (6) Coronary arteriosclerosis Status: Chronic (7) Edema Status: Acute (8) Ex-smoker Status: Chronic (9) Stented coronary artery Status: Chronic (10) Anemia Status: Acute (11) Tachycardia Status: Acute (12) Right ventricular (RV) hypertension Status: Acute (13) Right heart failure due to pulmonary hypertension Status: Acute (14) Underweight Status: Acute Discharge Plan - Patient Discharge Instructions ACTIVITY: Continue current activity DIET: continue same diet Patient Instructions: Pneumonia-Adult, DI for Pneumonia -- Adult - Follow up Plan Follow up with: Troy Valencia MD [Primary Care Provider] - 03/25/19 10:45 am Disposition: Home, Self-Longterm Medications: Home Medications Medication Instructions Recorded Confirmed Type amlodipine 5 mg tablet 5 mg PO DAILY 06/18/17 03/14/19 History aspirin 81 mg tablet,delayed 81 mg PO DAILY tab 06/18/17 03/14/19 History release atorvastatin 40 mg tablet 40 mg PO HS 06/18/17 03/14/19 History metoprolol succinate ER 25 mg 25 mg PO DAILY tab 06/18/17 03/14/19 History tablet,extended release 24 hr nitroglycerin 0.4 mg sublingual 0.4 mg SUBLINGUAL Q5MINP PRN 06/18/17 03/14/19 History tablet ticagrelor 90 mg tablet 90 mg PO BID 06/18/17 03/14/19 History Albuterol Sulfate [Albuterol HFA 2 puffs IH Q4HP PRN 03/14/19 03/14/19 History Inhaler] Ferrous Sulfate 325 mg PO DAILY 03/14/19 03/14/19 History Fluticasone/Umeclidin/Vilanter 1 puff IH DAILY 03/14/19 03/14/19 History [Trelegy Ellipta 100-62.5-25] Furosemide [Furosemide 20mg Tab] 20 mg PO DAILY #30 tab 03/19/19 Rx Medical Supply, Miscellaneous 1 each IH CONT #1 device 03/19/19 Rx [Oxygen Concentrator] Miscellaneous Medical Supply 1 each IH CONT #1 device 03/19/19 Rx [Oxygen, Portable] Oxazepam 10 mg PO TIDP PRN #12 cap 03/19/19 Rx Potassium Chloride [Micro-K 10mEq 10 meq PO DAILY #30 cap 03/19/19 Rx cap] Prescriptions/Medication Reconciliation: New Oxazepam 10 mg PO TIDP PRN #12 cap PRN Reason: Anxiety Potassium Chloride [Micro-K 10mEq cap] 10 meq PO DAILY #30 cap Medical Supply, Miscellaneous [Oxygen Concentrator] 1 each IH CONT #1 device Miscellaneous Medical Supply [Oxygen, Portable] 1 each IH CONT #1 device Furosemide [Furosemide 20mg Tab] 20 mg PO DAILY #30 tab Continued amlodipine 5 mg tablet 5 mg PO DAILY aspirin 81 mg tablet,delayed release 81 mg PO DAILY tab ticagrelor 90 mg tablet 90 mg PO BID metoprolol succinate ER 25 mg tablet,extended release 24 hr 25 mg PO DAILY tab nitroglycerin 0.4 mg sublingual tablet 0.4 mg SUBLINGUAL Q5MINP PRN PRN Reason: Chest Pain atorvastatin 40 mg tablet 40 mg PO HS Fluticasone/Umeclidin/Vilanter [Trelegy Ellipta 100-62.5-25] 1 puff IH DAILY Albuterol Sulfate [Albuterol HFA Inhaler] 2 puffs IH Q4HP PRN PRN Reason: Shortness Of Breath Or Wheezing Ferrous Sulfate 325 mg PO DAILY - Problem Reconciliation Problems Reviewed?: Yes
== END 2019-03-19 10:49 | disposition home or self-care (01) | DRG 190 ==
LOC: ER 12:57 → 2ND 12:57 → OBSVTOIN 16:06 → 2ND 16:06
PROVIDERS: ADMIT Emergency Medicine; ATTEND Family Medicine
CPT/HCPCS: 36415; 71010; 71045; 80048; 80053; 82803; 83880; 84484; 85007; 85025; 87205; 93005; 93306; 94640; 94761; 96365; 96375; 99284; J0456

== ENCOUNTER 2019-03-24 12:23 | Inpatient (IN) ==
--- NOTE | 2019-03-24 13:27 | Pharmacy Consult Notes ---
[facility] Pharmacy VTE Monitoring - Patient Demographics Admission date: 03/24/19 Report Date: 03/24/19 Time: 13:27 Allergies/Adverse Reactions: Patient Allergies No Known Allergies Allergy (Verified 03/15/18 17:41) Height: 1.78 m Weight: 46.89 kg - VTE Risk Was VTE Risk Assessment Performed: Yes VTE Score: 4 VTE Risk Level: Low Risk Clinical Trial Participant: No - Prophylaxis VTE Prophylaxis Ordered?: Yes Types of VTE Prophylaxis: TEDS Knee High
[2019-03-24 14:06] LABS: Basophils % 0.1 % (0.1-2.0); Eosinophils % 0.1 % (0.1-12.0); Lymphocytes # 0.3 K/mm3 (0.7-4.5); Lymphocytes % 2.8 % (10-50); Mean Corpuscular HGB Conc 30.2 g/dL (31.8-35.4); Mean Corpuscular Volume 89.9 fl (80-94); Mean Platelet Volume 7.7 fl (7.4-10.4); Monocytes # 0.5 K/mm3 (0.1-1.0); Monocytes % 5.2 % (1.7-9.3); Neutrophils # 9.4 K/mm3 (1.8-7.8); Neutrophils % 91.8 % (37.0-80.0); Platelet Count 593 K/mm3 (142-424); Red Blood Count 3.27 M/mm3 (4.60-6.20); Red Cell Distribution Width 16.1 % (11.5-17.5); White Blood Count 10.2 K/mm3 (4.8-10.8)
[2019-03-24 14:13] LABS: Hematocrit 29.6 % (42.0-52.0); Hemoglobin 8.9 g/dL (14.1-18.0)
[2019-03-24 14:15] LABS: Albumin Level 3.1 gm/dL (3.4-5.0); Albumin/Globulin Ratio 0.8 (1.1-1.8); Bilirubin,Total 0.8 mg/dL (0.2-1.0); Calcium 8.9 mg/dL (8.5-10.1); Total Protein,Serum 7.1 gm/dL (6.4-8.2)
[2019-03-24 14:35] LABS: Anisocytosis 1+; Hypochromasia 1+; Monocytes % 3 % (2-9); Neutrophils % 97 % (42-76); Total Cells Counted 100
[2019-03-24 14:36] LABS: Ovalocytes 1+
--- NOTE | 2019-03-24 14:41 | History & Physical Report ---
*Admission Date: 03/24/19 <Loly Guerra 03/24/19 14:43> *Chief complaint: SOB <Loly Guerra 03/24/19 14:43> *History of present illness: Mr. May is a 63-year-old male recently hospitalized [facility] from 03/14 to 03/19/2019 with COPD exacerbation, pneumonia, elevated troponin I, coronary artery disease, edema, anemia, nodular silicosis, right ventricular hypertension, and right heart failure due to pulmonary hypertension who after going home felt worse daily. He stated that he was not eating as well. He continued with a nonproductive cough. He felt very weak and was sometimes dizzy. He used oxygen continuously at 1 L/min. He continued with ed pedro pablo of bilateral lower legs. He presented to the office of [facility] today for follow-up to his hospitalization and stated that he felt worse than when he was in the hospital. With the office visit at [facility] his blood pressure was found to be low at 92/64, O2 sats were 98% on 1 L/min, and heart rate was 98. He appeared very weak and was barely able to walk. White blood cell count was found to be elevated at 15,600. Thus he was admitted to [facility] with community acquired pneumonia, SIRS, COPD, and pulmonary fibrosis. With this exam patient had a frequent nonproductive cough with left pleuritic pain. He stated he just did not feel well and was very weak. Chest x-ray has been completed and results are pending. <Loly Guerra 03/24/19 15:40> [facility] History Medical History: Reports:: Atherosclerotic Heart Disease, Chronic Obstructive Pulmonary Disease (COPD), Coronary Artery Disease, Home Oxygen, Hyperlipidemia, Hypertension, Kidney Stones, Palpitations Denies:: Diabetes Mellitus Type 1, Diabetes Mellitus Type 2 <Loly Guerra 03/24/19 14:43> *Have you ever received a pneumonia vaccine?: No <GuerraLoly 03/24/19 14:43> *Have you received a flu vaccine this season?: No <Loly Guerra 03/24/19 14:43> Other Medical History: Reports: Anemia, Arthritis, Other (Pulmonary fibrosis, Nodular Silicosis) <GuerraLoly 03/24/19 14:43> Comment:: RV HTN with right heart faiure due to pulmonary hypertension; Nodular silicosis; underweight <Loly Guerra 03/24/19 14:43> Other Surgeries: Yes: Coronary Stent, Other (Bronchoscopy) <Loly Guerra 03/24/19 14:43> - *Social History Educational Level: Completed High School <Loly Guerra 03/24/19 14:43> Smoking Status: Former smoker <Loly Guerra 03/24/19 14:43> Tobacco Type: cigarettes <Loly Guerra 03/24/19 14:43> #Yrs smoked (if former smoker): 30 <Loly Guerra 03/24/19 14:43> Alcohol Intake: never <Loly Guerra 03/24/19 14:43> Alcohol Intake Frequency:: other <Loly Guerra 03/24/19 14:43> *Occupational Status:: employed <Loly Guerra 03/24/19 14:43> Housing: house <Loly Guerra 03/24/19 14:43> Household Members: family <Loly Guerra 03/24/19 14:43> *Travel in the last 8 weeks: None <Lloy Guerra 03/24/19 14:43> Family Hx:: Coronary Artery Disease, Diabetes, Heart Attack, Hyperlipidemia <Loly Guerra 03/24/19 14:43> Review of Systems - Constitutional Reports lack of energy, Reports weight loss, Denies body ache(s), Denies headache(s) <Loly Guerra 03/24/19 15:23> - Eyes Denies change in vision <Loly Guerra 03/24/19 15:23> - ENT Denies ear pain, Denies headache(s), Denies sore throat <Loly Guerra 03/24/19 15:23> - *Cardiovascular Reports chest pain (with cough), Reports shortness of breath, Reports leg swelling <Loly Guerra 03/24/19 15:23> - *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), Reports shortness of breath with activity, Reports pain with cough, Denies coughing up blood <Loly Guerra 03/24/19 15:23> - *Gastrointestinal Reports belching, Reports constipation (meds have helped him to be regular), Denies abdominal pain, Denies change in stools, Denies vomiting blood, Denies black, tarry stools, Denies nausea, Denies vomiting <Loly Guerra - 03/24/19 15:23> - *Genitourinary Denies difficulty urinating <Loly Guerra 03/24/19 15:23> - *Musculoskeletal Reports muscle weakness <Loly Guerra 03/24/19 15:23> - *Neurologic Reports dizziness, Reports weakness, Denies abnormal speech, Denies headache(s), Denies seizure-like activity <Loly Guerra 03/24/19 15:23> Meds Home Medications Medication Instructions Recorded Confirmed Type amlodipine 5 mg tablet 5 mg PO DAILY 06/18/17 03/24/19 History aspirin 81 mg tablet,delayed 81 mg PO DAILY tab 06/18/17 03/24/19 History release atorvastatin 40 mg tablet 40 mg PO DAILY 06/18/17 03/24/19 History metoprolol succinate ER 25 mg 25 mg PO DAILY tab 06/18/17 03/24/19 History tablet,extended release 24 hr nitroglycerin 0.4 mg sublingual 0.4 mg SUBLINGUAL Q5MINP PRN 06/18/17 03/24/19 History tablet ticagrelor 90 mg tablet 90 mg PO BID 06/18/17 03/24/19 History Albuterol Sulfate [Albuterol HFA 2 puffs IH Q4HP PRN 03/14/19 03/24/19 History Inhaler] Ferrous Sulfate 325 mg PO DAILY 03/14/19 03/24/19 History Fluticasone/Umeclidin/Vilanter 1 puff IH DAILY 03/14/19 03/24/19 History [Trelegy Ellipta 100-62.5-25] Oxazepam 10 mg PO TIDP PRN #12 cap 03/19/19 03/24/19 Rx Furosemide [Furosemide 20mg Tab] 20 mg PO DAILY 03/24/19 03/24/19 History Medical Supply, Miscellaneous 1 each IH CONT 03/24/19 03/24/19 History [Oxygen Concentrator] Miscellaneous Medical Supply 1 each IH CONT 03/24/19 03/24/19 History [Oxygen, Portable] Potassium Chloride [Micro-K 10mEq 10 meq PO DAILY 03/24/19 03/24/19 History cap] <Troy Valencia - 03/24/19 16:06> Allergies Allergy/AdvReac Type Severity Reaction Status Date / Time No Known Allergies Allergy Verified 03/15/18 17:41 <Troy Valencia - 03/24/19 16:06> Exam Vital signs and Labs for Last 24 Hours: Temp Pulse Resp BP Pulse Ox 98.0 F 98 H 19 110/66 96 03/24/19 12:34 03/24/19 12:34 03/24/19 12:34 03/24/19 12:34 03/24/19 12:34 Laboratory Results - last 24 hr 03/24/19 13:46: WBC 10.2, RBC 3.27 L, Hgb 8.9 L, Hct 29.6 L, MCV 89.9, MCH 27.1, MCHC 30.2 L, RDW 16.1, Plt Count 593 H, MPV 7.7, Neut % (Auto) 91.8 H, Lymph % (Auto) 2.8 L, Payne % (Auto) 5.2, Eos % (Auto) 0.1, Baso % (Auto) 0.1, Neut # (Auto) 9.4 H, Lymph # (Auto) 0.3 L, Payne # (Auto) 0.5, Eos # (Auto) 0.0, Baso # (Auto) 0.0, Total Counted 100, Neutrophils % (Manual) 97 H, Monocytes % (Manual) 3, Platelet Estimate Slight increase, Hypochromasia 1+, Poikilocytosis 1+, Anisocytosis 1+, Ovalocytes 1+, Acanthocytes (Spur) 1+ 03/24/19 13:46: Sodium 137, Potassium 4.0, Chloride 97 L, Carbon Dioxide 30, Anion Gap 14.0, BUN 23 H, Creatinine 1.09, Estimated Creat Clear 47, Estimated GFR 69, Est GFR ( Amer) 83, Glucose 110 H, Calcium 8.9, Total Bilirubin 0.8, AST 20, ALT 34, Alkaline Phosphatase 73, Total Protein 7.1, Albumin 3.1 L, Globulin 4.0 H, Albumin/Globulin Ratio 0.8 L 03/24/19 13:46: Lactate 2.7 H 03/24/19 13:46: B-Natriuretic Peptide 169 H <Troy Valencia - 03/24/19 16:06> Temp Pulse Resp BP Pulse Ox 98.0 F 98 H 19 110/66 96 03/24/19 12:34 03/24/19 12:34 03/24/19 12:34 03/24/19 12:34 03/24/19 12:34 Laboratory Results - last 24 hr 03/24/19 13:46: WBC 10.2, RBC 3.27 L, Hgb 8.9 L, Hct 29.6 L, MCV 89.9, MCH 27.1, MCHC 30.2 L, RDW 16.1, Plt Count 593 H, MPV 7.7, Neut % (Auto) 91.8 H, Lymph % (Auto) 2.8 L, Payne % (Auto) 5.2, Eos % (Auto) 0.1, Baso % (Auto) 0.1, Neut # (Auto) 9.4 H, Lymph # (Auto) 0.3 L, Payne # (Auto) 0.5, Eos # (Auto) 0.0, Baso # (Auto) 0.0, Total Counted 100, Neutrophils % (Manual) 97 H, Monocytes % (Manual) 3, Platelet Estimate Slight increase, Hypochromasia 1+, Poikilocytosis 1+, Anisocytosis 1+, Ovalocytes 1+, Acanthocytes (Spur) 1+ 03/24/19 13:46: Sodium 137, Potassium 4.0, Chloride 97 L, Carbon Dioxide 30, Anion Gap 14.0, BUN 23 H, Creatinine 1.09, Estimated Creat Clear 47, Estimated GFR 69, Est GFR ( Amer) 83, Glucose 110 H, Calcium 8.9, Total Bilirubin 0.8, AST 20, ALT 34, Alkaline Phosphatase 73, Total Protein 7.1, Albumin 3.1 L, Globulin 4.0 H, Albumin/Globulin Ratio 0.8 L 03/24/19 13:46: Lactate 2.7 H 03/24/19 13:46: B-Natriuretic Peptide 169 H <Loly Guerra - 03/24/19 14:43> I & O for Last 24 hours: Intake & Output 03/21/19 03/22/19 03/23/19 03/24/19 23:59 23:59 23:59 23:59 Intake Total 240 / 240 Balance 240 / 240 Weight 103 lb 6 oz <Troy Valencia - 03/24/19 16:06> Intake & Output 03/22/19 03/23/19 03/24/19 03/25/19 11:59 11:59 11:59 11:59 Intake Total 240 / 240 Balance 240 / 240 Weight 103 lb 6 oz <Loly Guerra - 03/24/19 14:43> - Constitutional no acute distress, thin, cachectic, cooperative <Loly Guerra 03/24/19 15:23> - *Routine HEENT Exam Head: Present: normocephalic, atraumatic <Loly Guerra 03/24/19 15:23> Eye: Present: PERRL. Absent: conjunctival icterus, scleral injection <Loly Guerra 03/24/19 15:23> ENT: Present: mucous membranes moist, oropharynx clear <Loly Guerra 03/24/19 15:23> - *Routine Neck Exam Present: supple. Absent: carotid bruit, lymphadenopathy, thyromegaly <Loly Guerra 03/24/19 15:23> - *Routine Respiratory Exam Comments: scattered rhonchi <Loly Guerra 03/24/19 15:23> - *Routine Cardiovascular Exam Present: RRR, murmur <Loly Guerra 03/24/19 15:23> - *Routine Abdominal Exam Present: soft, normoactive bowel sounds. Absent: tenderness, distended <Loly Guerra 03/24/19 15:23> - *Routine Extremities Exam Present: edema (bilateral lower legs). Absent: calf tenderness <Loly Guerra 03/24/19 15:23> Assessment and Plan (1) Hypotension Current visit: Yes Status: Acute Category: Medical Code(s): I95.9 - Hypotension, unspecified (2) Community acquired pneumonia Current visit: No Status: Acute Qualifiers: Laterality: left Lung location: upper lobe of lung Qualified Code(s): J18.9 - Pneumonia, unspecified organism Category: Medical Code(s): J18.9 - Pneumonia, unspecified organism (3) SIRS (systemic inflammatory response syndrome) Current visit: Yes Status: Acute Category: Medical Code(s): R65.10 - Systemic inflammatory response syndrome (SIRS) of non-infectious origin without acute organ dysfunction (4) Chest pain, atypical Current visit: No Status: Acute Category: Medical Code(s): R07.89 - Other chest pain (5) Anemia Current visit: No Status: Chronic Category: Medical Code(s): D64.9 - Anemia, unspecified (6) COPD exacerbation Current visit: No Status: Acute Category: Medical Code(s): J44.1 - Chronic obstructive pulmonary disease with (acute) exacerbation (7) Bilateral lower extremity edema Current visit: No Status: Chronic Category: Medical Code(s): R60.0 - Localized edema (8) Right heart failure due to pulmonary hypertension Current visit: No Status: Chronic Category: Medical Code(s): I27.29 - Other secondary pulmonary hypertension; I50.810 - Right heart failure, unspecified (9) Right ventricular (RV) hypertension Current visit: No Status: Chronic Category: Medical Code(s): I11.9 - Hypertensive heart disease without heart failure (10) Underweight Current visit: No Status: Chronic Category: Medical Code(s): R63.6 - Underweight (11) Coronary arteriosclerosis Current visit: No Status: Chronic Category: Medical Code(s): I25.10 - Atherosclerotic heart disease of [place] coronary artery without angina pectoris (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 Category: Medical Code(s): J62.8 - Pneumoconiosis due to other dust containing silica (13) Pulmonary fibrosis Current visit: No Status: Chronic Category: Medical Code(s): J84.10 - Pulmonary fibrosis, unspecified <Troy Valencia - 03/24/19 16:06> (1) Hypotension Current visit: Yes Status: Acute Category: Medical Code(s): I95.9 - Hypotension, unspecified (2) Community acquired pneumonia Current visit: No Status: Acute Qualifiers: Laterality: left Lung location: upper lobe of lung Qualified Code(s): J18.9 - Pneumonia, unspecified organism Category: Medical Code(s): J18.9 - Pneumonia, unspecified organism (3) SIRS (systemic inflammatory response syndrome) Current visit: Yes Status: Acute Category: Medical Code(s): R65.10 - Systemic inflammatory response syndrome (SIRS) of non-infectious origin without acute organ dysfunction (4) Chest pain, atypical Current visit: No Status: Acute Category: Medical Code(s): R07.89 - Other chest pain (5) Anemia Current visit: No Status: Chronic Category: Medical Code(s): D64.9 - Anemia, unspecified (6) COPD exacerbation Current visit: No Status: Acute Category: Medical Code(s): J44.1 - Chronic obstructive pulmonary disease with (acute) exacerbation (7) Bilateral lower extremity edema Current visit: No Status: Chronic Category: Medical Code(s): R60.0 - Localized edema (8) Right heart failure due to pulmonary hypertension Current visit: No Status: Chronic Category: Medical Code(s): I27.29 - Other secondary pulmonary hypertension; I50.810 - Right heart failure, unspecified (9) Right ventricular (RV) hypertension Current visit: No Status: Chronic Category: Medical Code(s): I11.9 - Hypertensive heart disease without heart failure (10) Underweight Current visit: No Status: Chronic Category: Medical Code(s): R63.6 - Underweight (11) Coronary arteriosclerosis Current visit: No Status: Chronic Category: Medical Code(s): I25.10 - Atherosclerotic heart disease of [place] coronary artery without angina pectoris (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 Category: Medical Code(s): J62.8 - Pneumoconiosis due to other dust containing silica (13) Pulmonary fibrosis Current visit: No Status: Chronic Category: Medical Code(s): J84.10 - Pulmonary fibrosis, unspecified <Loly Guerra - 03/24/19 15:44> - Assessment and plan all Dx Assessment and Plan for all problems:: Saw patient in the office today for hospital follow up. He had worsening cough, chest pain and shortness of breath. BP was low and WBC count was elevated. He was admitted for further treatment of pneumonia and right sided heart failure. <Troy Valencia - 03/24/19 16:06> Gentle hydration; Levaquin has been initiated; will start duo nebs; we will continue to monitor H&H as well as white blood cell count. As per recomm endation from dietitian at last [facility] visit, will add nutritional shakes and protein fortified foods <Loly Guerra - 03/24/19 15:40>
--- NOTE | 2019-03-25 01:13 | Sepsis Event Note ---
[facility] Tissue Perfusion Eval Sepsis Re-Evaluation Performed: Yes Date Performed: 03/25/19 Time Performed: 00:35
[2019-03-25 06:11] LABS: Basophils % 0.1 % (0.1-2.0); Eosinophils # 0.1 K/mm3 (0.0-0.4); Eosinophils % 0.7 % (0.1-12.0); Hematocrit 28.3 % (42.0-52.0); Lymphocytes # 0.5 K/mm3 (0.7-4.5); Lymphocytes % 5.6 % (10-50); Mean Corpuscular HGB Conc 29.2 g/dL (31.8-35.4); Mean Corpuscular Volume 90.4 fl (80-94); Mean Platelet Volume 7.5 fl (7.4-10.4); Monocytes # 0.6 K/mm3 (0.1-1.0); Monocytes % 6.5 % (1.7-9.3); Neutrophils # 7.7 K/mm3 (1.8-7.8); Platelet Count 569 K/mm3 (142-424); Red Blood Count 3.13 M/mm3 (4.60-6.20); Red Cell Distribution Width 16.4 % (11.5-17.5); White Blood Count 8.9 K/mm3 (4.8-10.8)
[2019-03-25 06:24] LABS: Hemoglobin 8.4 g/dL (14.1-18.0)
[2019-03-25 06:38] LABS: Anion Gap 9.7 mEq/L (5-15); Calcium 8.2 mg/dL (8.5-10.1)
--- NOTE | 2019-03-25 08:46 | Progress Note ---
<Loly Guerra - Last Filed: 03/25/19 08:49> Internal Medicine - PN: Subj *Date: 03/25/19 *Time: 08:49 Interval history: Patient states he may feel little bit better today. He slept at intervals during the night. He was able to eat some breakfast. He denies breathing difficulties. Left lower chest pleuritic pain has resolved. He voids in small amounts. Per nursing: Was treated for septic shock with fluid boluses and started on Levophed drip for continued low blood pressure. Remains on Levophed at low-dose this morning. Patient is stable at present. Exam Vital signs and Labs for Last 24 Hours: Temp Pulse Resp BP Pulse Ox 97.5 F L 98 H 19 91/65 L 94 L 03/25/19 05:00 03/25/19 07:30 03/25/19 05:00 03/25/19 07:30 03/25/19 07:30 Laboratory Results - last 24 hr 03/24/19 13:46: WBC 10.2, RBC 3.27 L, Hgb 8.9 L, Hct 29.6 L, MCV 89.9, MCH 27.1, MCHC 30.2 L, RDW 16.1, Plt Count 593 H, MPV 7.7, Neut % (Auto) 91.8 H, Lymph % (Auto) 2.8 L, [place] % (Auto) 5.2, Eos % (Auto) 0.1, Baso % (Auto) 0.1, Neut # (Auto) 9.4 H, Lymph # (Auto) 0.3 L, [place] # (Auto) 0.5, Eos # (Auto) 0.0, Baso # (Auto) 0.0, Total Counted 100, Neutrophils % (Manual) 97 H, Monocytes % (Manual) 3, Platelet Estimate Slight increase, Hypochromasia 1+, Poikilocytosis 1+, Anisocytosis 1+, Ovalocytes 1+, Acanthocytes (Spur) 1+ 03/24/19 13:46: Sodium 137, Potassium 4.0, Chloride 97 L, Carbon Dioxide 30, Anion Gap 14.0, BUN 23 H, Creatinine 1.09, Estimated Creat Clear 47, Estimated GFR 69, Est GFR ( Amer) 83, Glucose 110 H, Calcium 8.9, Total Bilirubin 0.8, AST 20, ALT 34, Alkaline Phosphatase 73, Total Protein 7.1, Albumin 3.1 L, Globulin 4.0 H, Albumin/Globulin Ratio 0.8 L 03/24/19 13:46: Lactate 2.7 H 03/24/19 13:46: B-Natriuretic Peptide 169 H 03/24/19 18:01: Lactate 1.6 03/25/19 05:35: WBC 8.9, RBC 3.13 L, Hgb 8.4 L, Hct 28.3 L, MCV 90.4, MCH 26.4 L , MCHC 29.2 L, RDW 16.4, Plt Count 569 H, MPV 7.5, Neut % (Auto) 87.0 H, Lymph % (Auto) 5.6 L, [place] % (Auto) 6.5, Eos % (Auto) 0.7, Baso % (Auto) 0.1, Neut # (Auto) 7.7, Lymph # (Auto) 0.5 L, [place] # (Auto) 0.6, Eos # (Auto) 0.1, Baso # (Auto) 0.0 03/25/19 05:35: Sodium 137, Potassium 3.7, Chloride 103, Carbon Dioxide 28, Anion Gap 9.7, BUN 21 H, Creatinine 0.73 D, Estimated Creat Clear 52, Estimated GFR 109, Est GFR ( Amer) 132 D, Glucose 119 H, Calcium 8.2 L I & O for Last 24 hours: Intake & Output 03/22/19 03/23/19 03/24/19 03/25/19 11:59 11:59 11:59 11:59 Intake Total 710 / 710 Output Total 300 / 300 Balance 410 / 410 Weight 105 lb 3 oz Radiology Reports for the Last 24 Hours: Chest x-ray 03/24/2019 IMPRESSION: Chronic changes with no change in the bilateral upper lobe conglomerate masses/progressive massive fibrosis with improvement in the left lower lobe infiltrate. - Constitutional no acute distress, cachectic Comments: Sitting upright in the bed. Has completed breakfast. - *Routine Respiratory Exam Present: CTA bilaterally (Anteriorly and posteriorly. Better air movement today.) - *Routine Cardiovascular Exam Present: RRR (Monitor showing sinus tach at 100-110) Comments: Color is satisfactory. Satisfactory capillary refill. Palpable pulses. - *Routine Abdominal Exam Present: soft, normoactive bowel sounds. Absent: tenderness - *Routine Extremities Exam Present: edema. Absent: calf tenderness (Improved leg edema bilaterally) - *Routine Neurological Exam Present: alert, oriented X3 Assessment and Plan (1) Hypotension Current visit: Yes Status: Acute Category: Medical Code(s): I95.9 - Hypotension, unspecified (2) Community acquired pneumonia Current visit: No Status: Acute Qualifiers: Laterality: left Lung location: upper lobe of lung Qualified Code(s): J18.9 - Pneumonia, unspecified organism Category: Medical Code(s): J18.9 - Pneumonia, unspecified organism (3) SIRS (systemic inflammatory response syndrome) Current visit: Yes Status: Acute Category: Medical Code(s): R65.10 - Systemic inflammatory response syndrome (SIRS) of non-infectious origin without acute organ dysfunction (4) Chest pain, atypical Current visit: No Status: Acute Category: Medical Code(s): R07.89 - Other chest pain (5) Anemia Current visit: No Status: Chronic Category: Medical Code(s): D64.9 - Anemia, unspecified (6) COPD exacerbation Current visit: No Status: Acute Category: Medical Code(s): J44.1 - Chronic obstructive pulmonary disease with (acute) exacerbation (7) Bilateral lower extremity edema Current visit: No Status: Chronic Category: Medical Code(s): R60.0 - L ocalized edema (8) Right heart failure due to pulmonary hypertension Current visit: No Status: Chronic Category: Medical Code(s): I27.29 - Other secondary pulmonary hypertension; I50.810 - Right heart failure, unspecified (9) Right ventricular (RV) hypertension Current visit: No Status: Chronic Category: Medical Code(s): I11.9 - Hypertensive heart disease without heart failure (10) Underweight Current visit: No Status: Chronic Category: Medical Code(s): R63.6 - Underweight (11) Coronary arteriosclerosis Current visit: No Status: Chronic Category: Medical Code(s): I25.10 - Atherosclerotic heart disease of [place] coronary artery without angina pectoris (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 We will continue to monitor and wean as symptoms and blood pressure allow. We will continue with pulmonary hygiene with Levaquin and DuoNeb's. <Troy Valencia - Last Filed: 03/25/19 09:07> Internal Medicine - PN: Subj *Date: 03/25/19 *Time: 09:06 Exam Vital signs and Labs for Last 24 Hours: Temp Pulse Resp BP Pulse Ox 97.5 F L 98 H 19 91/65 L 94 L 03/25/19 05:00 03/25/19 07:30 03/25/19 05:00 03/25/19 07:30 03/25/19 07:30 Laboratory Results - last 24 hr 03/24/19 13:46: WBC 10.2, RBC 3.27 L, Hgb 8.9 L, Hct 29.6 L, MCV 89.9, MCH 27.1, MCHC 30.2 L, RDW 16.1, Plt Count 593 H, MPV 7.7, Neut % (Auto) 91.8 H, Lymph % (Auto) 2.8 L, [place] % (Auto) 5.2, Eos % (Auto) 0.1, Baso % (Auto) 0.1, Neut # (Auto) 9.4 H, Lymph # (Auto) 0.3 L, [place] # (Auto) 0.5, Eos # (Auto) 0.0, Baso # (Auto) 0.0, Total Counted 100, Neutrophils % (Manual) 97 H, Monocytes % (Manual) 3, Platelet Estimate Slight increase, Hypochromasia 1+, Poikilocytosis 1+, Anisocytosis 1+, Ovalocytes 1+, Acanthocytes (Spur) 1+ 03/24/19 13:46: Sodium 137, Potassium 4.0, Chloride 97 L, Carbon Dioxide 30, Anion Gap 14.0, BUN 23 H, Creatinine 1.09, Estimated Creat Clear 47, Estimated GFR 69, Est GFR ( Amer) 83, Glucose 110 H, Calcium 8.9, Total Bilirubin 0.8, AST 20, ALT 34, Alkaline Phosphatase 73, Total Protein 7.1, Albumin 3.1 L, Globulin 4.0 H, Albumin/Globulin Ratio 0.8 L 03/24/19 13:46: Lactate 2.7 H 03/24/19 13:46: B-Natriuretic Peptide 169 H 03/24/19 18:01: Lactate 1.6 03/25/19 05:35: WBC 8.9, RBC 3.13 L, Hgb 8.4 L, Hct 28.3 L, MCV 90.4, MCH 26.4 L , MCHC 29.2 L, RDW 16.4, Plt Count 569 H, MPV 7.5, Neut % (Auto) 87.0 H, Lymph % (Auto) 5.6 L, [place] % (Auto) 6.5, Eos % (Auto) 0.7, Baso % (Auto) 0.1, Neut # (Auto) 7.7, Lymph # (Auto) 0.5 L, [place] # (Auto) 0.6, Eos # (Auto) 0.1, Baso # (Auto) 0.0 03/25/19 05:35: Sodium 137, Potassium 3.7, Chloride 103, Carbon Dioxide 28, Anion Gap 9.7, BUN 21 H, Creatinine 0.73 D, Estimated Creat Clear 52, Estimated GFR 109, Est GFR ( Amer) 132 D, Glucose 119 H, Calcium 8.2 L I & O for Last 24 hours: Intake & Output 03/22/19 03/23/19 03/24/19 03/25/19 23:59 23:59 23:59 23:59 Intake Total 480 / 490 2039 Output Total 300 / 300 Balance 480 / 490 1739 / 174 Weight 103 lb 6 oz 105 lb 3 oz Assessment and Plan (1) Hypotension Current visit: Yes Status: Acute Category: Medical Code(s): I95.9 - Hypotension, unspecified (2) Community acquired pneumonia Current visit: No Status: Acute Qualifiers: Laterality: left Lung location: upper lobe of lung Qualified Code(s): J18.9 - Pneumonia, unspecified organism Category: Medical Code(s): J18.9 - Pneumonia, unspecified organism (3) SIRS (systemic inflammatory response syndrome) Current visit: Yes Status: Acute Category: Medical Code(s): R65.10 - Systemic inflammatory response syndrome (SIRS) of non-infectious origin without acute organ dysfunction (4) Chest pain, atypical Current visit: No Status: Acute Category: Medical Code(s): R07.89 - Other chest pain (5) Anemia Current visit: No Status: Chronic Category: Medical Code(s): D64.9 - Anemia, unspecified (6) COPD exacerbation Current visit: No Status: Acute Category: Medical Code(s): J44.1 - Chronic obstructive pulmonary disease with (acute) exacerbation (7) Bilateral lower extremity edema Current visit: No Status: Chronic Category: Medical Code(s): R60.0 - Localized edema (8) Right heart failure due to pulmonary hypertension Current visit: No Status: Chronic Category: Medical Code(s): I27.29 - Other secondary pulmonary hypertension; I50.810 - Right heart failure, unspecified (9) Right ventricular (RV) hypertension Current visit: No Status: Chronic Category: Medical Code(s): I11.9 - Hypertensive heart disease without heart failure (10) Underweight Current visit: No Status: Chronic Category: Medical Code(s): R63.6 - Underweight (11) Coronary arteriosclerosis Current visit: No Status: Chronic Category: Medical Code(s): I25.10 - Atherosclerotic heart disease of [place] coronary artery without angina pectoris (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
[2019-03-25 09:06] LABS: Lymphocytes % 7 % (10-50); Monocytes % 5 % (2-9); Neutrophils % 88 % (42-76); Total Cells Counted 100
[2019-03-25 09:07] LABS: Anisocytosis 1+; Hypochromasia 1+
[2019-03-26 06:15] LABS: Basophils % 0.1 % (0.1-2.0); Eosinophils % 0.3 % (0.1-12.0); Lymphocytes # 0.4 K/mm3 (0.7-4.5); Lymphocytes % 5.3 % (10-50); Mean Corpuscular HGB Conc 29.8 g/dL (31.8-35.4); Mean Platelet Volume 7.3 fl (7.4-10.4); Monocytes # 0.3 K/mm3 (0.1-1.0); Monocytes % 4.8 % (1.7-9.3); Neutrophils # 6.3 K/mm3 (1.8-7.8); Neutrophils % 89.6 % (37.0-80.0); Platelet Count 494 K/mm3 (142-424); Red Blood Count 2.81 M/mm3 (4.60-6.20); Red Cell Distribution Width 16.4 % (11.5-17.5)
[2019-03-26 06:21] LABS: Anion Gap 10.5 mEq/L (5-15)
[2019-03-26 06:41] LABS: Hemoglobin 7.5 g/dL (14.1-18.0)
--- NOTE | 2019-03-26 08:23 | Progress Note ---
<Charo Marino - Last Filed: 03/26/19 08:20> Internal Medicine - PN: Subj *Date: 03/26/19 *Time: 08:20 Interval history: Patient states he is having "anxiety episodes" this morning. He states when he gets up to use the urinal he gets very short of breath and his heart rate increases. He still coughing but is unable to cough anything up. He denies any pain this morning. He did not rest well. Exam Vital signs and Labs for Last 24 Hours: Temp Pulse Resp BP Pulse Ox 98.2 F 112 H 20 108/71 L 97 03/25/19 20:00 03/26/19 06:00 03/25/19 20:00 03/26/19 06:00 03/26/19 06:00 Laboratory Results - last 24 hr 03/25/19 05:35: Total Counted 100, Neutrophils % (Manual) 88 H, Lymphocytes % (Manual) 7 L, Monocytes % (Manual) 5, Platelet Estimate Moderate increase, Hypochromasia 1+, Anisocytosis 1+ 03/26/19 05:24: WBC 7.0, RBC 2.81 L, Hgb 7.5 L*, Hct 25.0 L, MCV 89.0, MCH 26.5 L, MCHC 29.8 L, RDW 16.4, Plt Count 494 H, MPV 7.3 L, Neut % (Auto) 89.6 H, Lymph % (Auto) 5.3 L, [place] % (Auto) 4.8, Eos % (Auto) 0.3, Baso % (Auto) 0.1, Neut # (Auto) 6.3, Lymph # (Auto) 0.4 L, [place] # (Auto) 0.3, Eos # (Auto) 0.0, Baso # (Auto) 0.0 03/26/19 05:24: Sodium 139, Potassium 3.5, Chloride 107, Carbon Dioxide 25, Anion Gap 10.5, BUN 15 D, Creatinine 0.63 L, Estimated Creat Clear 53, Estimated GFR 129, Est GFR ( Amer) 156, Glucose 89 D, Calcium 8.0 L I & O for Last 24 hours: Intake & Output 03/23/19 03/24/19 03/25/19 03/26/19 11:59 11:59 11:59 11:59 Intake Total 2670 / 2670 2211 / 2211 Output Total 300 / 300 1210 / 1210 Balance 2370 / 2370 1001 / 1001 Weight 105 lb 3 oz 108 lb 3.2 oz - Constitutional no acute distress - *Routine Respiratory Exam Present: decreased breath sounds, rhonchi, wheezes - *Routine Cardiovascular Exam Present: RRR - *Routine Abdominal Exam Present: soft, normoactive bowel sounds. Absent: tenderness - *Routine Extremities Exam Present: edema (1+ LE edema bilaterally). Absent: cyanosis, clubbing - *Routine Skin Exam Present: pallor - *Routine Neurological Exam Present: alert, oriented X3 Assessment and Plan (1) Hypotension Current visit: Yes Status: Acute Category: Medical Code(s): I95.9 - Hypo tension, unspecified (2) Community acquired pneumonia Current visit: No Status: Acute Qualifiers: Laterality: left Lung location: upper lobe of lung Qualified Code(s): J18.9 - Pneumonia, unspecified organism Category: Medical Code(s): J18.9 - Pneumonia, unspecified organism (3) SIRS (systemic inflammatory response syndrome) Current visit: Yes Status: Acute Category: Medical Code(s): R65.10 - Systemic inflammatory response syndrome (SIRS) of non-infectious origin without acute organ dysfunction (4) Chest pain, atypical Current visit: No Status: Acute Category: Medical Code(s): R07.89 - Other chest pain (5) Anemia Current visit: No Status: Chronic Category: Medical Code(s): D64.9 - Anemia, unspecified (6) COPD exacerbation Current visit: No Status: Acute Category: Medical Code(s): J44.1 - Chronic obstructive pulmonary disease with (acute) exacerbation (7) Bilateral lower extremity edema Current visit: No Status: Chronic Category: Medical Code(s): R60.0 - Localized edema (8) Right heart failure due to pulmonary hypertension Current visit: No Status: Chronic Category: Medical Code(s): I27.29 - Other secondary pulmonary hypertension; I50.810 - Right heart failure, unspecified (9) Right ventricular (RV) hypertension Current visit: No Status: Chronic Category: Medical Code(s): I11.9 - Hypertensive heart disease without heart failure (10) Underweight Current visit: No Status: Chronic Category: Medical Code(s): R63.6 - Underweight (11) Coronary arteriosclerosis Current visit: No Status: Chronic Category: Medical Code(s): I25.10 - Atherosclerotic heart disease of [place] coronary artery without angina pectoris (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 We will also add anxiety medication. <Troy Valencia - Last Filed: 03/26/19 08:26> Internal Medicine - PN: Subj *Date: 03/26/19 *Time: 08:25 Exam Vital signs and Labs for Last 24 Hours: Temp Pulse Resp BP Pulse Ox 98.2 F 112 H 20 108/71 L 97 03/25/19 20:00 03/26/19 06:00 03/25/19 20:00 03/26/19 06:00 03/26/19 06:00 Laboratory Results - last 24 hr 03/25/19 05:35: Total Counted 100, Neutrophils % (Manual) 88 H, Lymphocytes % (Manual) 7 L, Monocytes % (Manual) 5, Platelet Estimate Moderate increase, Hypochromasia 1+, Anisocytosis 1+ 03/26/19 05:24: WBC 7.0, RBC 2.81 L, Hgb 7.5 L*, Hct 25.0 L, MCV 89.0, MCH 26.5 L, MCHC 29.8 L, RDW 16.4, Plt Count 494 H, MPV 7.3 L, Neut % (Auto) 89.6 H, Lymph % (Auto) 5.3 L, [place] % (Auto) 4.8, Eos % (Auto) 0.3, Baso % (Auto) 0.1, Neut # (Auto) 6.3, Lymph # (Auto) 0.4 L, [place] # (Auto) 0.3, Eos # (Auto) 0.0, Baso # (Auto) 0.0 03/26/19 05:24: Sodium 139, Potassium 3.5, Chloride 107, Carbon Dioxide 25, Anion Gap 10.5, BUN 15 D, Creatinine 0.63 L, Estimated Creat Clear 53, Estimated GFR 129, Est GFR ( Amer) 156, Glucose 89 D, Calcium 8.0 L I & O for Last 24 hours: Intake & Output 03/23/19 03/24/19 03/25/19 03/26/19 23:59 23:59 23:59 23:59 Intake Total 630 / 640 3778 / 3778 473 / 473 Output Total 1020 / 1020 490 / 490 Balance 630 / 640 2758 / 2758 - Weight 103 lb 6 oz 105 lb 3 oz 108 lb 3.2 oz Assessment and Plan (1) Hypotension Current visit: Yes Status: Acute Category: Medical Code(s): I95.9 - Hypotension, unspecified (2) Community acquired pneumonia Current visit: No Status: Acute Qualifiers: Laterality: left Lung location: upper lobe of lung Qualified Code(s): J18.9 - Pneumonia, unspecified organism Category: Medical Code(s): J18.9 - Pneumonia, unspecified organism (3) SIRS (systemic inflammatory response syndrome) Current visit: Yes Status: Acute Category: Medical Code(s): R65.10 - Systemic inflammatory response syndrome (SIRS) of non-infectious origin without acute organ dysfunction (4) Chest pain, atypical Current visit: No Status: Acute Category: Medical Code(s): R07.89 - Other chest pain (5) Anemia Current visit: No Status: Chronic Category: Medical Code(s): D64.9 - Anemia, unspecified (6) COPD exacerbation Current visit: No Status: Acute Category: Medical Code(s): J44.1 - Chronic obstructive pulmonary disease with (acute) exacerbation (7) Bilateral lower extremity edema Current visit: No Status: Chronic Category: Medical Code(s): R60.0 - Localized edema (8) Right heart failure due to pulmonary hypertension Current visit: No Status: Chronic Category: Medical Code(s): I27.29 - Other secondary pulmonary hypertension; I50.810 - Right heart failure, unspecified (9) Right ventricular (RV) hypertension Current visit: No Status: Chronic Category: Medical Code(s): I11.9 - Hypertensive heart disease without heart failure (10) Underweight Current visit: No Status: Chronic Category: Medical Code(s): R63.6 - Underweight (11) Coronary arteriosclerosis Current visit: No Status: Chronic Category: Medical Code(s): I25.10 - Atherosclerotic heart disease of [place] coronary artery without angina pectoris (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
[2019-03-26 10:45] LABS: Anisocytosis 1+; Lymphocytes % 1 % (10-50); Monocytes % 1 % (2-9); Neutrophils % 96 % (42-76); Total Cells Counted 100
[2019-03-26 10:48] LABS: Ovalocytes 1+
[2019-03-26 18:04] LABS: Hematocrit 33.3 % (42.0-52.0)
[2019-03-26 18:05] LABS: Hemoglobin 10.6 g/dL (14.1-18.0)
[2019-03-27 06:01] LABS: Basophils % 0.1 % (0.1-2.0); Eosinophils # 0.1 K/mm3 (0.0-0.4); Eosinophils % 1.4 % (0.1-12.0); Hemoglobin 10.3 g/dL (14.1-18.0); Lymphocytes # 0.5 K/mm3 (0.7-4.5); Lymphocytes % 6.9 % (10-50); Mean Corpuscular HGB Conc 30.3 g/dL (31.8-35.4); Mean Platelet Volume 7.6 fl (7.4-10.4); Monocytes # 0.4 K/mm3 (0.1-1.0); Monocytes % 5.2 % (1.7-9.3); Neutrophils # 6.7 K/mm3 (1.8-7.8); Neutrophils % 86.5 % (37.0-80.0); Platelet Count 429 K/mm3 (142-424); Red Blood Count 3.74 M/mm3 (4.60-6.20); Red Cell Distribution Width 16.1 % (11.5-17.5); White Blood Count 7.8 K/mm3 (4.8-10.8)
[2019-03-27 06:07] LABS: Anion Gap 7.2 mEq/L (5-15); Calcium 8.3 mg/dL (8.5-10.1)
[2019-03-27 08:20] LABS: Lymphocytes % 2 % (10-50); Monocytes % 3 % (2-9); Neutrophils % 95 % (42-76); Total Cells Counted 100
[2019-03-27 08:21] LABS: Anisocytosis 1+; Hypochromasia 1+
--- NOTE | 2019-03-27 08:34 | Progress Note ---
Internal Medicine - PN: Subj *Date: 03/27/19 *Time: 08:31 Interval history: Patient feels much better today, slept well, anxious to go home. Exam Vital signs and Labs for Last 24 Hours: Temp Pulse Resp BP Pulse Ox 97.5 F L 106 H 21 141/79 H 94 L 03/27/19 04:00 03/27/19 08:00 03/27/19 08:00 03/27/19 08:00 03/27/19 08:00 Laboratory Results - last 24 hr 03/26/19 05:24: Total Counted 100, Neutrophils % (Manual) 96 H, Band Neutrophils % 2.0, Lymphocytes % (Manual) 1 L, Monocytes % (Manual) 1 L, Platelet Estimate Normal, Poikilocytosis 1+, Anisocytosis 1+, Ovalocytes 1+, Acanthocytes (Spur) 1+ 03/26/19 08:55: Blood Type A Positive, Antibody Screen Negative, Crossmatch (AHG) See Detail 03/26/19 09:50: Blood Type Confirm A Positive 03/26/19 17:58: Hgb 10.6 L D, Hct 33.3 L 03/27/19 05:21: WBC 7.8, RBC 3.74 L D, Hgb 10.3 L, Hct 34.0 L, MCV 91.0, MCH 27.5, MCHC 30.3 L, RDW 16.1, Plt Count 429 H, MPV 7.6, Neut % (Auto) 86.5 H, Lymph % (Auto) 6.9 L, [place] % (Auto) 5.2, Eos % (Auto) 1.4, Baso % (Auto) 0.1, Neut # (Auto) 6.7, Lymph # (Auto) 0.5 L, [place] # (Auto) 0.4, Eos # (Auto) 0.1, Baso # (Auto) 0.0, Total Counted 100, Neutrophils % (Manual) 95 H, Lymphocytes % (Manual) 2 L, Monocytes % (Manual) 3, Platelet Estimate Normal, Hypochromasia 1+, Poikilocytosis 1+, Anisocytosis 1+, Acanthocytes (Spur) 1+ 03/27/19 05:21: Sodium 138, Potassium 3.2 L, Chloride 107, Carbon Dioxide 27, Anion Gap 7.2, BUN 15, Creatinine 0.75, Estimated Creat Clear 54, Estimated GFR 106, Est GFR ( Amer) 128, Glucose 91, Calcium 8.3 L Vital Signs - 24 hr 03/26/19 10:00 03/26/19 11:15 03/26/19 11:30 Temperature 98.3 F 98.2 F Pulse Rate 108 H 106 H Pulse Rate [Left] 105 H Respiratory Rate 18 22 20 Blood Pressure 94/61 L 97/71 L Blood Pressure [Left Arm] 109/75 L 02 Sat by Pulse Oximetry 97 97 97 03/26/19 11:35 03/26/19 11:40 03/26/19 11:45 Temperature 98.8 F 98.6 F 98.6 F Pulse Rate 107 H 94 H 106 H Pulse Rate [Left] Respiratory Rate 20 20 22 Blood Pressure 96/65 L 100/64 L 107/67 L Blood Pressure [Left Arm] 02 Sat by Pulse Oximetry 95 97 97 03/26/19 12:00 03/26/19 12:15 03/26/19 12:30 Temperature 98.6 F 98.7 F 98.6 F Pulse Rate 100 H 101 H 109 H Pulse Rate [Left] Respiratory Rate 22 20 20 Blood Pressure 118/67 106/66 L 115/78 Blood Pressure [Left Arm] 02 Sat by Pulse Oximetry 97 98 98 03/26/19 12:45 03/26/19 13:00 03/26/19 13:45 Temperature 98.8 F 98.3 F Pulse Rate 110 H 103 H Pulse Rate [Left] 117 H Respiratory Rate 22 18 20 Blood Pressure 111/70 98/60 L Blood Pressure [Left Arm] 93/55 L 02 Sat by Pulse Oximetry 97 97 94 L 03/26/19 14:15 03/26/19 14:35 03/26/19 14:40 Temperature 98.8 F 98.6 F 98.8 F Pulse Rate 107 H 110 H 107 H Pulse Rate [Left] Respiratory Rate 20 20 18 Blood Pressure 97/64 L 102/68 L 99/69 L Blood Pressure [Left Arm] 02 Sat by Pulse Oximetry 97 96 95 03/26/19 14:45 03/26/19 14:50 03/26/19 15:05 Temperature 98.8 F 98.8 F 98.6 F Pulse Rate 105 H 104 H 104 H Pulse Rate [Left] Respiratory Rate 20 22 18 Blood Pressure 96/63 L 96/65 L 93/60 L Blood Pressure [Left Arm] 02 Sat by Pulse Oximetry 97 97 95 03/26/19 15:20 03/26/19 15:35 03/26/19 16:00 Temperature 98.7 F 98.6 F Pulse Rate 112 H 111 H 100 H Pulse Rate [Left] 111 H Respiratory Rate 22 20 18 Blood Pressure 95/61 L 95/58 L Blood Pressure [Left Arm] 95/58 L 02 Sat by Pulse Oximetry 95 95 97 03/26/19 16:35 03/26/19 17:00 03/26/19 17:01 Temperature 98.8 F 98.6 F Pulse Rate 109 H 109 H Pulse Rate [Left] 109 H Respiratory Rate 20 20 18 Blood Pressure 101/67 L 94/57 L Blood Pressure [Left Arm] 94/57 L 02 Sat by Pulse Oximetry 97 97 97 03/26/19 18:00 03/26/19 18:25 03/26/19 20:00 Temperature 98.7 F 98.0 F Pulse Rate 108 H Pulse Rate [Left] 112 H 110 H Respiratory Rate 22 22 20 Blood Pressure 99/53 L Blood Pressure [Left Arm] 99/53 L 121/69 02 Sat by Pulse Oximetry 94 L 95 95 03/26/19 22:00 03/27/19 00:00 03/27/19 02:00 Temperature 98.2 F Pulse Rate 112 H Pulse Rate [Left] 95 H 92 H 83 Respiratory Rate 18 20 20 Blood Pressure Blood Pressure [Left Arm] 108/69 L 97/76 L 101/71 L 02 Sat by Pulse Oximetry 95 96 96 03/27/19 04:00 03/27/19 05:00 03/27/19 06:00 Temperature 97.5 F L Pulse Rate 97 H Pulse Rate [Left] 91 H 87 Respiratory Rate 20 24 Blood Pressure Blood Pressure [Left Arm] 118/81 119/84 02 Sat by Pulse Oximetry 95 96 03/27/19 08:00 Temperature Pulse Rate Pulse Rate [Left] 106 H Respiratory Rate 21 Blood Pressure Blood Pressure [Left Arm] 141/79 H 02 Sat by Pulse Oximetry 94 L I & O for Last 24 hours: Intake & Output 03/24/19 03/25/19 03/26/19 03/27/19 23:59 23:59 23:59 23:59 Intake Total 630 / 640 3928 / 3928 2067 / 2067 669 / 669 Output Total 1020 / 1020 1240 / 1240 300 / 300 Balance 630 / 640 2908 / 2908 827 / 827 369 / 369 Weight 103 lb 6 oz 105 lb 3 oz 108 lb 3.211 oz 110 lb 0.171 oz Microbiology Reports for the Last 24 Hours: Microbiology 03/24/19 13:30 Blood - Other Blood Culture - Preliminary NO GROWTH AFTER 48 HOURS 03/24/19 13:30 Blood - Other Blood Culture - Preliminary NO GROWTH AFTER 48 HOURS - Constitutional no acute distress - *Routine HEENT Exam Head: Present: normocephalic Eye: Present: EOMI, PERRL ENT: Present: mucous membranes moist - *Routine Neck Exam Present: supple. Absent: lymphadenopathy - *Routine Respiratory Exam Present: crackles (rare in left base) Comments: good air movement - *Routine Cardiovascular Exam Present: RRR - *Routine Abdominal Exam Present: soft, normoactive bowel sounds. Absent: tenderness - *Routine Extremities Exam Absent: cyanosis, clubbing, edema - *Routine Skin Exam Present: warm. Absent: rash - *Routine Neurological Exam Present: alert, oriented X3 Assessment and Plan (1) Hypotension Current visit: Yes Status: Acute Category: Medical Code(s): I95.9 - Hypotension, unspecified (2) Community acquired pneumonia Current visit: No Status: Acute Qualifiers: Laterality: left Lung location: upper lobe of lung Qualified Code(s): J18.9 - Pneumonia, unspecified organism Category: Medical Code(s): J18.9 - Pneumonia, unspecified organism (3) SIRS (systemic inflammatory response syndrome) Current visit: Yes Status: Acute Category: Medical Code(s): R65.10 - Systemic inflammatory response syndrome (SIRS) of non-infectious origin without acute organ dysfunction (4) Chest pain, atypical Current visit: No Status: Acute Category: Medical Code(s): R07.89 - Other chest pain (5) Anemia Current visit: No Status: Chronic Category: Medical Code(s): D64.9 - Anemia, unspecified (6) COPD exacerbation Current visit: No Status: Acute Category: Medical Code(s): J44.1 - Chronic obstructive pulmonary disease with (acute) exacerbation (7) Bilateral lower extremity edema Current visit: No Status: Chronic Category: Medical Code(s): R60.0 - Localized edema (8) Right heart failure due to pulmonary hypertension Current visit: No Status: Chronic Category: Medical Code(s): I27.29 - Other secondary pulmonary hypertension; I50.810 - Right heart failure, unspecified (9) Right ventricular (RV) hypertension Current visit: No Status: Chronic Category: Medical Code(s): I11.9 - Hypertensive heart disease without heart failure (10) Underweight Current visit: No Status: Chronic Category: Medical Code(s): R63.6 - Underweight (11) Coronary arteriosclerosis Current visit: No Status: Chronic Category: Medical Code(s): I25.10 - Atherosclerotic heart disease of [place] coronary artery without angina pectoris (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 Category: Medical Code(s): J62.8 - Pneumoconiosis due to other dust containing silica (13) Pulmonary fibrosis Current visit: No Status: Chronic Category: Medical Code(s): J84.10 - Pulmonary fibrosis, unspecified (14) Septic shock Current visit: Yes Status: Acute Category: Medical Code(s): A41.9 - Sepsis, unspecified organism; R65.21 - Severe sepsis with septic shock (15) Hypokalemia Current visit: Yes Status: Acute Category: Medical Code(s): E87.6 - Hypokalemia - Assessment and plan all Dx Assessment and Plan for all problems:: OK for discharge today on oral Levaquin, will increase ferrous sulfate to twice daily and give a weeks worth of potassium.
--- NOTE | 2019-03-27 10:38 | Progress Note ---
Internal Medicine - PN: Subj *Date: 03/27/19 *Time: 10:38 Exam Vital signs and Labs for Last 24 Hours: Temp Pulse Resp BP Pulse Ox 97.5 F L 104 H 16 118/74 95 03/27/19 04:00 03/27/19 10:00 03/27/19 10:00 03/27/19 10:00 03/27/19 10:00 Laboratory Results - last 24 hr 03/26/19 05:24: Total Counted 100, Neutrophils % (Manual) 96 H, Band Neutrophils % 2.0, Lymphocytes % (Manual) 1 L, Monocytes % (Manual) 1 L, Platelet Estimate Normal, Poikilocytosis 1+, Anisocytosis 1+, Ovalocytes 1+, Acanthocytes (Spur) 1+ 03/26/19 08:55: Blood Type A Positive, Antibody Screen Negative, Crossmatch (AHG) See Detail 03/26/19 17:58: Hgb 10.6 L D, Hct 33.3 L 03/27/19 05:21: WBC 7.8, RBC 3.74 L D, Hgb 10.3 L, Hct 34.0 L, MCV 91.0, MCH 27.5, MCHC 30.3 L, RDW 16.1, Plt Count 429 H, MPV 7.6, Neut % (Auto) 86.5 H, Lymph % (Auto) 6.9 L, [place] % (Auto) 5.2, Eos % (Auto) 1.4, Baso % (Auto) 0.1, Neut # (Auto) 6.7, Lymph # (Auto) 0.5 L, [place] # (Auto) 0.4, Eos # (Auto) 0.1, Baso # (Auto) 0.0, Total Counted 100, Neutrophils % (Manual) 95 H, Lymphocytes % (Manual) 2 L, Monocytes % (Manual) 3, Platelet Estimate Normal, Hypochromasia 1+, Poikilocytosis 1+, Anisocytosis 1+, Acanthocytes (Spur) 1+ 03/27/19 05:21: Sodium 138, Potassium 3.2 L, Chloride 107, Carbon Dioxide 27, Anion Gap 7.2, BUN 15, Creatinine 0.75, Estimated Creat Clear 54, Estimated GFR 106, Est GFR ( Amer) 128, Glucose 91, Calcium 8.3 L I & O for Last 24 hours: Intake & Output 03/24/19 03/25/19 03/26/19 03/27/19 23:59 23:59 23:59 23:59 Intake Total 630 / 640 3928 / 3928 2067 / 2067 669 / 669 Output Total 1020 / 1020 1240 / 1240 300 / 300 Balance 630 / 640 2908 / 2908 827 / 827 369 / 369 Weight 46.89 kg 47.712 kg 49.079 kg 49.9 kg Microbiology Reports for the Last 24 Hours: Microbiology 03/24/19 13:30 Blood - Other Blood Culture - Preliminary NO GROWTH AFTER 48 HOURS 03/24/19 13:30 Blood - Other Blood Culture - Preliminary NO GROWTH AFTER 48 HOURS Assessment and Plan (1) Hypotension Current visit: Yes Status: Acute Category: Medical Code(s): I95.9 - Hypotension, unspecified (2) Community acquired pneumonia Current visit: No Status: Acute Qualifiers: Laterality: left Lung location: upper lobe of lung Qualified Code(s): J18.9 - Pneumonia, unspecified organism Category: Medical Code(s): J18.9 - Pneumonia, unspecified organism (3) SIRS (systemic inflammatory response syndrome) Current visit: Yes Status: Acute Category: Medical Code(s): R65.10 - Systemic inflammatory response syndrome (SIRS) of non-infectious origin without acute organ dysfunction (4) Chest pain, atypical Current visit: No Status: Acute Category: Medical Code(s): R07.89 - Other chest pain (5) Anemia Current visit: No Status: Chronic Category: Medical Code(s): D64.9 - Anemia, unspecified (6) COPD exacerbation Current visit: No Status: Acute Category: Medical Code(s): J44.1 - Chronic obstructive pulmonary disease with (acute) exacerbation (7) Bilateral lower extremity edema Current visit: No Status: Chronic Category: Medical Code(s): R60.0 - Localized edema (8) Right heart failure due to pulmonary hypertension Current visit: No Status: Chronic Category: Medical Code(s): I27.29 - Other secondary pulmonary hypertension; I50.810 - Right heart failure, unspecified (9) Right ventricular (RV) hypertension Current visit: No Status: Chronic Category: Medical Code(s): I11.9 - Hypertensive heart disease without heart failure (10) Underweight Current visit: No Status: Chronic Category: Medical Code(s): R63.6 - Underweight (11) Coronary arteriosclerosis Current visit: No Status: Chronic Category: Medical Code(s): I25.10 - Atherosclerotic heart disease of [place] coronary artery without angina pectoris (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 Category: Medical Code(s): J62.8 - Pneumoconiosis due to other dust containing silica (13) Pulmonary fibrosis Current visit: No Status: Chronic Category: Medical Code(s): J84.10 - Pulmonary fibrosis, unspecified (14) Septic shock Current visit: Yes Status: Acute Category: Medical Code(s): A41.9 - Sepsis, unspecified organism; R65.21 - Severe sepsis with septic shock (15) Hypokalemia Current visit: Yes Status: Acute Category: Medical Code(s): E87.6 - Hypokalemia The patient's infection will respond to the chosen ABx?: Yes Is the patient receiving the right drug, dose, and route?: Yes Could a more targeted ABx be ordered?: No (HOME ON PO LEVAQUIN)
--- NOTE | 2019-03-27 14:34 | Discharge Summary ---
General - General Admission date:: 03/24/19 Discharge date: 03/27/19 HPI HPI: Mr. May is a 63-year-old male recently hospitalized [facility] from 03/14 to 03/19/2019 with COPD exacerbation, pneumonia, elevated troponin I, coronary artery disease, edema, anemia, nodular silicosis, right ventricular hypertension, and right heart failure due to pulmonary hypertension who after going home felt worse daily. He stated that he was not eating as well. He continued with a nonproductive cough. He felt very weak and was sometimes dizzy. He used oxygen continuously at 1 L/min. He continued with edema of bilateral lower legs. He presented to the office of [facility] today for follow-up to his hospitalization and stated that he felt worse than when he was in the hospital. With the office visit at [facility], his blood pressure was found to be low at 92/64, O2 sats were 98% on 1 L/min, and heart rate was 98. He appeared very weak and was barely able to walk. White blood cell count was found to be elevated at 15,600. Thus he was admitted to [facility] with community acquired pneumonia, SIRS, COPD, and pulmonary fibrosis. Hospital Course Hospital Course: The patient's chest x-ray showed chronic changes with no change in the bilateral upper lobe conglomerate masses/progressive massive fibrosis. There was some improvement in the left lower lobe infiltrate. The patient was started on Levaquin, duo nebs, and gentle hydration. His H&H was monitored as was his white blood cell count. Nutritional shakes and routine fortified foods were added as per dietary recommendation. According to nursing notes, on the embedded processor of 03/25/2019, the patient was treated for septic shock with fluid boluses and was started on a Levophed drip for continued low blood pressure. Pulmonary hygiene as well as Levaquin and duo nebs were continued. He was able to be weaned off of the Levophed drip and cefepime was added. By the morning of 03/26/19, the patient's H&H had dropped to 7.5 and 25. He complained of "anxiety episodes" where he would get up to use the urinal and get very short of breath. He was unable to cough up any sputum. He was transfused with 2 units of packed red blood cells and anxiety medication was ordered. The patient felt much better by 03/27/2019 and was anxious to go home. His H&H improved to 10.3 and 34. His blood culture showed no growth. He was stable to be discharged home on oral Levaquin and his ferrous sulfate was increased to twice daily. He was also given a week's worth of potassium due to hypokalemia. He will follow- up with Dr. Valencia in the office. Objective Vital signs: Temp Pulse Resp BP Pulse Ox 97.5 F L 104 H 16 118/74 95 03/27/19 04:00 03/27/19 10:00 03/27/19 10:00 03/27/19 10:00 03/27/19 10:00 Narrative: - Constitutional no acute distress, thin, cachectic, cooperative - *Routine HEENT Exam Head: Present: normocephalic, atraumatic Eye: Present: PERRL. Absent: conjunctival icterus, scleral injection ENT: Present: mucous membranes moist, oropharynx clear - *Routine Neck Exam Present: supple. Absent: carotid bruit, lymphadenopathy, thyromegaly - *Routine Respiratory Exam Comments: scattered rhonchi - *Routine Cardiovascular Exam Present: RRR, murmur - *Routine Abdominal Exam Present: soft, normoactive bowel sounds. Absent: tenderness, distended - *Routine Extremities Exam Present: edema (bilateral lower legs). Absent: calf tenderness Results Labs on day of discharge: Labs from last 24 hours 03/27/19 03/27/19 03/26/19 05:21 05:21 17:58 WBC 7.8 RBC 3.74 L D Hgb 10.3 L 10.6 L D Hct 34.0 L 33.3 L MCV 91.0 MCH 27.5 MCHC 30.3 L RDW 16.1 Plt Count 429 H MPV 7.6 Neut % (Auto) 86.5 H Lymph % (Auto) 6.9 L [place] % (Auto) 5.2 Eos % (Auto) 1.4 Baso % (Auto) 0.1 Neut # (Auto) 6.7 Lymph # (Auto) 0.5 L [place] # (Auto) 0.4 Eos # (Auto) 0.1 Baso # (Auto) 0.0 Total Counted 100 Neutrophils % (Manual) 95 H Lymphocytes % (Manual) 2 L Monocytes % (Manual) 3 Platelet Estimate Normal Hypochromasia 1+ Poikilocytosis 1+ Anisocytosis 1+ Acanthocytes (Spur) 1+ Sodium 138 Potassium 3.2 L Chloride 107 Carbon Dioxide 27 Anion Gap 7.2 BUN 15 Creatinine 0.75 Estimated Creat Clear 54 Estimated GFR 106 Est GFR ( Amer) 128 Glucose 91 Calcium 8.3 L Blood Type Antibody Screen Crossmatch ([facility]) 03/26/19 08:55 WBC RBC Hgb Hct MCV MCH MCHC RDW Plt Count MPV Neut % (Auto) Lymph % (Auto) [place] % (Auto) Eos % (Auto) Baso % (Auto) Neut # (Auto) Lymph # (Auto) [place] # (Auto) Eos # (Auto) Baso # (Auto) Total Counted Neutrophils % (Manual) Lymphocytes % (Manual) Monocytes % (Manual) Platelet Estimate Hypochromasia Poikilocytosis Anisocytosis Acanthocytes (Spur) Sodium Potassium Chloride Carbon Dioxide Anion Gap BUN Creatinine Estimated Creat Clear Estimated GFR Est GFR ( Amer) Glucose Calcium Blood Type A Positive Antibody Screen Negative Crossmatch ([facility]) See Detail Preliminary micro results at discharge 03/24/19 13:30 Blood Culture - Preliminary Blood - Other NO GROWTH AFTER 48 HOURS 03/24/19 13:30 Blood Culture - Preliminary Blood - Other NO GROWTH AFTER 48 HOURS DS: Diagnosis - Discharge Diagnosis (1) Hypotension Status: Acute (2) Community acquired pneumonia Status: Acute (3) SIRS (systemic inflammatory response syndrome) Status: Acute (4) Chest pain, atypical Status: Acute (5) Anemia Status: Chronic (6) COPD exacerbation Status: Acute (7) Bilateral lower extremity edema Status: Chronic (8) Right heart failure due to pulmonary hypertension Status: Chronic (9) Right ventricular (RV) hypertension Status: Chronic (10) Underweight Status: Chronic (11) Coronary arteriosclerosis Status: Chronic (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 Status: Chronic (13) Pulmonary fibrosis Status: Chronic (14) Septic shock Status: Acute (15) Hypokalemia Status: Acute Discharge Plan - Patient Discharge Instructions ACTIVITY: Continue current activity DIET: continue same diet Patient Instructions: Septic Shock, DI for Pneumonia -- Adult, DI for Coronary Artery Disease - Follow up Plan Follow up with: Troy Valencia MD [Primary Care Provider] - 04/08/19 11:00 am Disposition: Home, Self-[facility]sp Medications: Home Medications Medication Instructions Recorded Confirmed Type aspirin 81 mg tablet,delayed 81 mg PO DAILY tab 06/18/17 03/24/19 History release atorvastatin 40 mg tablet 40 mg PO DAILY 06/18/17 03/24/19 History metoprolol succinate ER 25 mg 25 mg PO DAILY tab 06/18/17 03/24/19 History tablet,extended release 24 hr nitroglycerin 0.4 mg sublingual 0.4 mg SUBLINGUAL Q5MINP PRN 06/18/17 03/24/19 History tablet ticagrelor 90 mg tablet 90 mg PO BID 06/18/17 03/24/19 History Albuterol Sulfate [Albuterol HFA 2 puffs IH Q4HP PRN 03/14/19 03/24/19 History Inhaler] Fluticasone/Umeclidin/Vilanter 1 puff IH DAILY 03/14/19 03/24/19 History [Trelegy Ellipta 100-62.5-25] Furosemide [Furosemide 20mg Tab] 20 mg PO DAILY 03/24/19 03/24/19 History Medical Supply, Miscellaneous 1 each IH CONT 03/24/19 03/24/19 History [Oxygen Concentrator] Miscellaneous Medical Supply 1 each IH CONT 03/24/19 03/24/19 History [Oxygen, Portable] Potassium Chloride [Micro-K 10mEq 10 meq PO DAILY 03/24/19 03/24/19 History cap] Ferrous Sulfate 325 mg PO BID #60 tab 03/27/19 Rx Oxazepam 10 mg PO TIDP PRN #45 cap 03/27/19 Rx levoFLOXacin [Levaquin 500mg 500 mg PO DAILY #7 tab 03/27/19 Rx tab] Prescriptions/Medication Reconciliation: New levoFLOXacin [Levaquin 500mg tab] 500 mg PO DAILY #7 tab Continued aspirin 81 mg tablet,delayed release 81 mg PO DAILY tab ticagrelor 90 mg tablet 90 mg PO BID metoprolol succinate ER 25 mg tablet,extended release 24 hr 25 mg PO DAILY tab nitroglycerin 0.4 mg sublingual tablet 0.4 mg SUBLINGUAL Q5MINP PRN PRN Reason: Chest Pain atorvastatin 40 mg tablet 40 mg PO DAILY Fluticasone/Umeclidin/Vilanter [Trelegy Ellipta 100-62.5-25] 1 puff IH DAILY Albuterol Sulfate [Albuterol HFA Inhaler] 2 puffs IH Q4HP PRN PRN Reason: Shortness Of Breath Or Wheezing Potassium Chloride [Micro-K 10mEq cap] 10 meq PO DAILY Medical Supply, Miscellaneous [Oxygen Concentrator] 1 each IH CONT Furosemide [Furosemide 20mg Tab] 20 mg PO DAILY Miscellaneous Medical Supply [Oxygen, Portable] 1 each IH CONT Oxazepam 10 mg PO TIDP PRN #45 cap PRN Reason: Anxiety Changed Ferrous Sulfate 325 mg PO BID #60 tab Discontinued amlodipine 5 mg tablet 5 mg PO DAILY - Problem Reconciliation Problems Reviewed?: Yes
== END 2019-03-27 12:00 | disposition home or self-care (01) | DRG 194 ==
LOC: 2ND → OBSVTOIN 12:24 → 2ND 21:51 → ICU 03-26 15:52
PROVIDERS: ADMIT Family Medicine; ATTEND Family Medicine
CPT/HCPCS: 36415; 71020; 71046; 80048; 80053; 83605; 83880; 85007; 85014; 85018; 85025; 86850; 87040; 94640; 94761; J0692; J1956; P9016